=== PATIENT | female | born 1965 | race Caucasian/White ===

== ENCOUNTER 2020-07-15 12:26 | Day surgery (SDC) | payer MEDICARE, SELFPAY ==
[2020-07-09 08:35] VITALS: BMI 22.4
[2020-07-15 13:19] VITALS: BP 116/56; PULSE 94; RESP 16; TEMP 36.6; O2SAT 95
[2020-07-15] MEDS: Lactated Ringers 1,000 ML 20 ML IVCONT (13:50)
--- NOTE | 2020-07-15 13:50 | HO.ANESPROP2 ---
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 If so, by whom?: No Advance Directives Information Provided: No Recently lost weight without trying: No Meds Allergies Allergy/AdvReac Type Severity Reaction Status Date / Time olsalazine [From Dipentum] Allergy Rash Verified 07/15/20 13:02 Sulfa (Sulfonamide Allergy Rash Verified 07/09/20 08:45 Antibiotics) voriconazole Allergy seizure-like Verified 07/09/20 08:45 reaction aspirin AdvReac Gastrointestinal Verified 07/09/20 08:45 Upset ibuprofen AdvReac Gastrointestinal Verified 07/09/20 08:45 Upset Home Medications Medication Instructions Recorded Confirmed Last Taken Type diazepam 4 mg PO BID 07/09/20 07/09/20 Unknown History folic acid 1 mg PO DAILY 07/09/20 07/09/20 Unknown History levothyroxine 25 mcg PO DAILY 07/09/20 07/09/20 07/15/20 History mesalamine 800 mg PO TID 07/09/20 07/09/20 Unknown History multivitamin 1 tab PO DAILY 07/09/20 07/09/20 Unknown History pantoprazole 40 mg PO BID 07/09/20 07/09/20 07/15/20 History prazosin 2 mg PO BEDTIME 07/09/20 07/09/20 Unknown History sertraline 150 mg PO DAILY 07/09/20 07/09/20 Unknown History sucralfate 1 g PO BID 07/09/20 07/09/20 Unknown History Exam Exam Date and Time: July 15, 2020 1350 Height,Weight and Vital Signs: Height 5 ft 1 in Weight 53.977 kg Last Vital Signs Temp 97.9 F 07/15/20 13:19 Pulse 94 07/15/20 13:19 Resp 16 07/15/20 13:19 BP 116/56 L 07/15/20 13:19 Pulse Ox 95 07/15/20 13:19 Airway Mallampati Class: II TM Dist: >3cm Neck ROM: Limited Assessment and Plan Assessment Anesthesia Assessment: Anesthesia Plan Discussed Final Anesthetic Review NPO: Yes ASA Class: III Final Preanesthetic Review: No Changes in Pt Med Stat, Meds/Allgs Chart Reviewed, Anes Risks/Benef Reviewed and DNR Form (If Appl.) Patient Risk: Low Procedure Risk: Low Assessment/Block/Sedation in SS: Assess/Block/Sedation-SS Anesthetic Plan Anesthetic Plan: MAC: Disposition: Standard PACU
--- NOTE | 2020-07-15 14:04 | MHC.SHP ---
Pre-Procedural Eval Section A The patient is an INPATIENT: No Changes since office visit: No Cold of Flu in the past 2 weeks, No New Medical Problems, No Changes in Medication and No Patient answered all questions The History & Physical has been completed within 30 days and I have reviewed it.: Yes Section B Chief Complaint: crohns Allergies: Allergies Allergy/AdvReac Type Severity Reaction Status Date / Time olsalazine [From Dipentum] Allergy Rash Verified 07/15/20 13:02 Sulfa (Sulfonamide Allergy Rash Verified 07/09/20 08:45 Antibiotics) voriconazole Allergy seizure-like Verified 07/09/20 08:45 reaction aspirin AdvReac Gastrointestinal Verified 07/09/20 08:45 Upset ibuprofen AdvReac Gastrointestinal Verified 07/09/20 08:45 Upset Plan I have reviewed the history and physical and performed a pertinent physical examination on my patient. No changes have occurred unless specified.
--- NOTE | 2020-07-15 14:38 | PM.OP ---
Brief Operative Note Date of Service: 07/15/20 Pre-op diagnosis: ulcerative colitis Procedure: colonoscopy Surgeon: Panda Joseph Anesthesia: MAC Estimated blood loss (mL): 5 Pathology: other (bxs ti and colon) Condition: stable Disposition: PACU
[2020-07-15 14:41] VITALS: BP 90/51; PULSE 70; RESP 16; TEMP 36.7; O2SAT 99
[2020-07-15 14:57] VITALS: BP 102/41; PULSE 72; RESP 16; TEMP 36.7; O2SAT 98
--- NOTE | 2020-07-15 15:05 | OP_ITS ---
SURGEON: Panda Joseph MD INDICATIONS: Ulcerative colitis. PREOPERATIVE DIAGNOSIS: POSTOPERATIVE DIAGNOSIS: PROCEDURE PERFORMED: Colonoscopy to the terminal ileum. ESTIMATED BLOOD LOSS: COMPLICATIONS: ANESTHESIA: Monitored anesthesia care. ASSISTANTS: SPECIMENS: DESCRIPTION OF PROCEDURE: History and physical performed. The risks and benefits of the procedure were explained to the patient and informed consent was obtained. The patient was placed in the left lateral decubitus position. A digital rectal exam was performed and it was found to be normal. The Olympus pediatric video colonoscope was introduced into the rectum and advanced to the cecum without difficulty. The cecum was identified by transillumination, palpation, and identification of the ileocecal valve. Examination was performed. The scope was removed. She tolerated the procedure well and was transferred to the recovery area in stable condition. FINDINGS: The terminal ileum was normal. The visualized colonic mucosa was normal. There was some liquid stool coating the mucosa, mainly in the cecum and left colon. This was washed and suctioned. No polyps were identified. There was no active colitis identified. Biopsies were obtained from the terminal ileum and in all segments of the right colon approximately every 10 cm. No other lesions were identified. Retroflexed examination showed internal hemorrhoids. IMPRESSION: Ulcerative colitis. RECOMMENDATIONS: Follow up the biopsy results. MD VINI Alamo/ALEXANDERL / [id number]
== END 2020-07-15 15:18 | disposition home or self-care (01) ==
PROVIDERS: PCP Internal Medicine; Visit Provider Internal Medicine Gastroenterology
PROC: 0DJD8ZZ Inspection of Lower Intestinal Tract, Via Natural or Artificial Opening Endoscopic (ICD-10-PCS; CPT 45378; principal; 2020-07-15 13:50)
DX: K51.00 Ulcerative (chronic) pancolitis without complications (principal); K22.70 Barrett's esophagus without dysplasia; K64.8 Other hemorrhoids; K21.9 Gastro-esophageal reflux disease without esophagitis; C95.91 Leukemia, unspecified, in remission; G80.9 Cerebral palsy, unspecified; F32.9 Major depressive disorder, single episode, unspecified; Z79.899 Other long term (current) drug therapy; Z88.2 Allergy status to sulfonamides; Z88.8 Allergy status to other drugs, medicaments and biological substances
CPT/HCPCS: 45380; 88305

== ENCOUNTER 2022-10-07 06:10 | Day surgery (SDC) | payer MEDICARE, MEDICAID, SELFPAY ==
[2022-10-07 05:58] VITALS: BMI 25.9
--- OUTSIDE RECORDS SUMMARY | 2022-10-07 06:12 | XMS_ITS | Continuity of Care Document ---
Author Name Unknown Organization [facility] Address [address] [place] [address]- Care Team Providers Care Sales Service Coordinator Name Role Phone Patsy GERARDO, Rowan Leone Primary Care Physician Encounter [facility] Date(s): 08/16/21 - 09/15/21 [facility] [address] [place] [address]- Attending Physician: Yoly Siddiqi Admitting Physician: Yoly Siddiqi Referring Physician: AdmtrYoly Allergies, Adverse Reactions, Alerts Substance Reaction Severity Status aspirin Active sulfa drugs Rash Active Dipentum Active Bactrim Active nonsteroidal anti-inflammatory agents Active voriconazole Active Abilify Active Soy Products Active NSAIDs Active atorvastatin abd pain Active Latex Unknown Active Lactose Active Immunizations Given and Recorded Vaccine Date Status Refusal Reason influenza virus vaccine, inactivated 02/24/21 Give n influenza virus vaccine, inactivated 1 12/12/19 Re corded influenza virus vaccine, inactivated 02/19/18 Give n influenza virus vaccine, inactivated 2 01/03/17 Re corded influenza virus vaccine, inactivated 3 01/07/16 Re corded influenza virus vaccine, inactivated 12/02/14 Ji rded influenza virus vaccine, inactivated 12/16/13 Ji rded SARS-CoV-2 (COVID-19) mRNA-1273 vaccine 09/22/20 R ecorded SARS-CoV-2 (COVID-19) mRNA-1273 vaccine 06/12/20 R ecorded pneumococcal 23-valent vaccine 10/06/18 Given tetanus-diphtheria toxoids (Td) 03/26/83 Recorded Not Given Vaccine Date Status Refusal Reason pneumococcal 23-valent vaccine 04/15/14 Not Given Patient Refuses 1Result Comment: GIVEN AT [facility] 2Result Comment: [01/04/2017] [facility] 3Result Comment: [01/08/2016] [facility] Medications Acetaminophen = 650 mg, Every 6 hours, PRN Pain , Mild, two tablets (325mg) every 6 hours as needed, 0 Refills, Maintenance, 01/29/15 15:51:52 EST Start Date: 01/29/15 Status: Ordered acetaminophen/butalbital/caffeine 325 mg-50 mg-40 mg oral tablet See Instructions, PRN Headache, As needed for severe headache. no increases. use sparingly not to exceed 4000 mg acetaminophen per day, # 5 tablet, 0 Refills, Maintenance, 07/28/21 10:04:00 EDT, [facility] # [facility], As needed for severe headache. no... Start Date: 07/28/21 Status: Ordered azelastine 137 mcg/inh (0.1%) nasal spray 2 sprays, Nares, Both, Daily, PRN Other Allergies, in each nostril, # 30 mL, 5 Refills, Maintenance, 04/08/21 17:11:00 EST, [place], [facility] # 20, Partial fill upon patient request if the prescription is for a schedule II opioid drug., 2 sprays... Start Date: 04/08/21 Status: Ordered Centrum Silver Ultra Women's 1 tablet, By Mouth, Daily, 0 Refills, Maintenance, 04/15/14 16:52:38 Start Date: 04/15/14 Status: Ordered cranberry oral capsule 1 capsule, By Mouth, Daily, 0 Refills, Maintenance, 10/05/18 15:17:53 EDT Start Date: 10/05/18 Status: Ordered Delzicol 400 mg oral delayed release capsule 2 capsule = 800 mg, By Mouth, 3 times a day, # 180 capsule, 11 Refills, Maintenance, 04/29/19 17:44:00 EST, [id number], 155, cm, 04/11/19 11:34:00 EST, Height, 56.8, kg, 04/11/19 11:34:00 EST, Dry Weight Start Date: 04/29/19 Status: Ordered Folic Acid = 800 mcg, Daily, 0 Refills, Maintenance, 02/13/14 19:02:48 Start Date: 02/13/14 Status: Ordered pantoprazole 40 mg oral delayed release tablet 1 tablet = 40 mg, By Mouth, 2 times a day, # 60 tablet, 5 Refills, Maintenance, 12/09/19 13:25:00 EDT, CR Tablet, 155, cm, 11/28/19 14:53:00 EDT, Height, 56.9, kg, 05/07/19 13:47:00 EST, Dry Weight Start Date: 12/09/19 Status: Ordered Praluent Pen 75 mg/mL subcutaneous solution See Instructions, 75 mg Subcutaneous Infusion once every 2 weeks rotate injection sites, # 2 each, 3 Refills, Maintenance, 03/23/20 15:54:00 EST, [id number], 155, cm, 03/17/20 13:55:00 EST, Height, 56.9, kg, 05/07/19 13:47:00 EST, Start Date: 03/23/20 Status: Ordered Viactiv Soft Calcium Chews Calcium with Vitamin D and K oral tablet, chewable By Mouth, Daily in AM, 0 Refills, Maintenance, 10/05/18 15:20:12 EDT Start Date: 10/05/18 Status: Ordered Problem List Condition Effective Dates Status Health Status Inform ant Acute promyelocytic leukemia , TRICE M3, in remission(Confirmed) Active Adverse reaction to vaccine(Confirmed) Active Anemia(Confirmed) Active Anxiety disorder(Confirmed) Active Arthritis(Confirmed) Active Vaginal atrophy(Confirmed) Active Barreto's esophagus(Confirmed) Active Cerebral palsy(Confirmed) Active Depression(Confirmed) Active Dysuria(Confirmed) Active Esophageal reflux(Confirmed) Active DORINDA (generalized anxiety disorder)(Confirmed) Active Cephalgia(Confirmed) Active Hip pain(Confirmed) Active Hyperlipidemia(Confirmed) Active Hypothyroidism(Confirmed) Active Iron deficiency anemia(Confirmed) Active Migraines(Confirmed) Active Mild intellectual disabilities(Confirmed) Active Right leg weakness(Confirmed) Active Arthralgia of multiple sites(Confirmed) Active Dyspareunia, female(Confirmed) Active MDD (major depressive disord er), recurrent, in full remission(Confirmed) Active Major depressive disorder, r ecurrent episode, mild(Confirmed) Active Depression, major, recurrent , moderate(Confirmed) Active Segmental and somatic dysfun ction of cervical region(Confirmed) Active Back spasm(Confirmed) Active Syncope(Confirmed) Active Tardive dyskinesia(Confirmed) Active Ulcerative colitis(Confirmed) Active Social History Social History Type Response Smoking Status Never smoker entered on: 04/16/14 Sex
--- OUTSIDE RECORDS SUMMARY | 2022-10-07 06:12 | XMS_ITS | Continuity of Care Document ---
Author Name Unknown Organization [facility] Address [address] [place] [address]- Care Team Providers Care Health Care / Medical Job Titles Name Role Phone Patsy GERARDO, Rowan Leone Primary Care Physician Encounter [facility] Date(s): 06/22/22 - 07/22/22 [facility] [address] [place] [address]- Allergies, Adverse Reactions, Alerts Substance Reaction Severity Status aspirin Active sulfa drugs Rash Active Dipentum Active Bactrim Active nonsteroidal anti-inflammatory agents Active Latex Unknown Active voriconazole Active Abilify Active Lactose Active NSAIDs Active atorvastatin abd pain Active Soy Products Active Immunizations Given and Recorded Vaccine Date Status Refusal Reason influenza virus vaccine, inactivated 02/04/22 Give n influenza virus vaccine, inactivated 02/24/21 Give n [...] Given Patient Refuses 1Result Comment: GIVEN AT [facility] 2Result Comment: [01/04/2017] [facility] 3Result Comment: [01/08/2016] [facility] Medications Acetaminophen = 650 mg, Every 6 hours, PRN Pain , Mild, two tablets (325mg) every 6 hours as needed, 0 Refills, Maintenance, 01/29/15 15:51:52 EST Start Date: 01/29/15 Status: Ordered Albuterol (Eqv-ProAir HFA) 90 mcg/inh inhalation aerosol 2 puffs, Inhalation, Every 4 hours, # 1 each, 3 Refills, Maintenance, 06/22/22 12:34:00 EDT, [facility] # [facility], Partial fill upon patient request if the prescription is for a schedule II opioid drug., 2 puffs Inhalation Every 4 hours, 158, cm, 06/22... Start Date: 06/22/22 Status: Ordered albuterol CFC free 90 mcg/inh inhalation aerosol 2, puffs, Inhalation, 4 times a day, PRN, # 1 each, Refills 0, Tot. Refills 0, Acute 08/20/22 15:15:00 EDT, 07/14/22 15:15:00 EDT, Aerosol, Route to Pharmacy Electronically, [id number], [facility] # [facility], 158, cm, 07/14/22... Start Date: 07/14/22 Stop Date: 08/20/22 Status: Ordered albuterol CFC free 90 mcg/inh inhalation aerosol 1, puffs, Inhalation, Every 8 hours, PRN, # 1 each, Refills 0, Tot. Refills 0, Soft Stop, 10/04/17 12:37:39 EDT, Aerosol, Route to Pharmacy Electronically, NCP[facility]_[id number], [facility] [address], Compound Start Date: 10/04/17 Status: Ordered azelastine 137 mcg/inh (0.1%) nasal spray 2 sprays, Nares, Both, Daily, PRN Other Allergies, in each nostril, # 30 mL, 5 Refills, Maintenance, 04/08/21 17:11:00 EST, [place], [facility] # 20, Partial fill upon patient request if the prescription is for a schedule II opioid drug., 2 sprays... Start Date: 04/08/21 Status: Ordered Centrum Silver Ultra Women's 1 tablet, By Mouth, Daily, 0 Refills, Maintenance, 04/15/14 16:52:38 Start Date: 04/15/14 Status: Ordered cetirizine 10 mg oral tablet 1 tablet = 10 mg, By Mouth, Daily, # 30 tablet, 2 Refills, Maintenance, 06/06/22 13:18:00 EDT, Tablet, [facility] # [facility], Partial fill upon patient request if the prescription is for a schedule II opioid drug., 159, cm, 06/06/22 13:01:00 EDT, Height... Start Date: 06/06/22 Status: Ordered cranberry oral capsule 1 capsule, By Mouth, Daily, 0 Refills, Maintenance, 10/05/18 15:17:53 EDT Start Date: 10/05/18 Status: Ordered Delzicol 400 mg oral delayed release capsule 2 capsule = 800 mg, By Mouth, 3 times a day, # 180 capsule, 11 Refills, Maintenance, 04/29/19 17:44:00 EST, [facility] #[id number], 155, cm, 04/11/19 11:34:00 EST, Height, 56.8, kg, 04/11/19 11:34:00 EST, Dry Weight Start Date: 04/29/19 Status: Ordered diazepam 2 mg oral tablet 4 mg, 2, tablet, By Mouth, 2 times a day, masspat checked, # 120 tablet, Refills 4, Tot. Refills 4,Maintenance, 05/04/22 14:36:00 EST, Route to Pharmacy Electronically, [facility] # [facility], 159, cm,02/04/22 14:02:00 EST, Height, 59.2, kg, 10/26/21 1... Start Date: 05/04/22 Stop Date: 10/01/22 Status: Ordered Euthyrox 25 mcg (0.025 mg) oral tablet See Instructions, TAKE 1 TABLET BY MOUTH DAILY ALTERNATING WITH 1.5 TABLETS EVERY OTHER DAY, # 45 tablet, 5 Refills, Maintenance, 02/04/22 13:36:00 EST, [facility] # [facility], 159, cm, 10/26/21 15:18:00 EDT, Height, 59.2, kg, 10/26/21 15:18:00 EDT, Dry... Start Date: 02/04/22 Status: Ordered fluticasone 50 mcg/inh nasal spray 1 sprays = 50 mcg, Nares, Both, Daily, PRN Nasal Congestion, as needed, # 16 Gm, 3 Refills, Maintenance, 06/06/22 13:18:00 EDT, Nasal [place], [facility] # [facility], 1 sprays Nares, Both Daily,PRN:Nasal Congestion,Instr:as needed, 159, cm, 06/06/22 13:01:... Start Date: 06/06/22 Status: Ordered Folic Acid = 800 mcg, Daily, 0 Refills, Maintenance, 02/13/14 19:02:48 Start Date: 02/13/14 Status: Ordered pantoprazole 40 mg oral delayed release tablet 1 tablet = 40 mg, By Mouth, Daily, at bedtime, # 60 tablet, 5 Refills, Maintenance, 12/09/19 13:25:00 EDT, CR Tablet, 155, cm, 11/28/19 14:53:00 EDT, Height, 56.9, kg, 05/07/19 13:47:00 EST, Dry Weight Start Date: 12/09/19 Status: Ordered pantoprazole 40 mg oral delayed release tablet 1 tablet = 40 mg, By Mouth, Daily, # 30 tablet, 6 Refills, Maintenance, 01/13/17 16:18:00, EC Tablet Start Date: 01/13/17 Status: Ordered Praluent Pen 75 mg/mL subcutaneous solution See Instructions, 75 mg Subcutaneous Infusion once every 2 weeks rotate injection sites, # 2 each, 2 Refills, Maintenance, 02/04/22 16:26:00 EST, [facility], 159, cm, 02/04/22 14:02:00 EST, Height, 59.2, kg, 10/26/21 15:18:00 EDT, Dry Weight Start Date: 02/04/22 Status: Ordered sertraline 100 mg oral tablet 1.5 tablet = 150 mg, By Mouth, Daily, # 45 tablet, 4 Refills, Maintenance, 05/04/22 14:38:00 EST, Tablet, [facility], 159, cm, 02/04/22 14:02:00 EST, Height, 59.2, kg, 10/26/21 15:18:00 EDT,Dry Weight Start Date: 05/04/22 Stop Date: 10/01/22 Status: Ordered sucralfate 1 gm oral tablet 1, tablet, By Mouth, 3 times a day before meals, ON AN ON AN EMPTY STOMACH., # 90 tablet, Refills 2, Tot. Refills 2, Maintenance, 07/11/22 20:08:00 EDT, Route to Pharmacy Electronically, [facility] #[id number], 158, cm, 06/22/22 10:29:00 EDT, [place]i... Start Date: 07/11/22 Status: Ordered SUMAtriptan 50 mg oral tablet See Instructions, take a half at onset of headache, may repeat other half 2 hours later once, 0 Refills, Maintenance, 02/04/22 15:02:00 EST, Partial fill upon patient request if the prescription is for a schedule II opioid drug. Start Date: 02/04/22 Status: Ordered Viactiv Soft Calcium Chews Calcium with Vitamin D and K oral tablet, chewable By Mouth, Daily in AM, 0 Refills, Maintenance, 10/05/18 15:20:12 EDT Start Date: 10/05/18 Status: Ordered Yuvafem 10 mcg vaginal tablet See Instructions, 1 tablet Vaginally twice weekly at bedtime., # 30 tablet, 4 Refills, Maintenance,10/26/21 15:45:00 EDT, [facility] # [facility], Partial fill upon patient request if the prescription is for a schedule II opioid drug., 159, cm, 10/26/21... Start Date: 10/26/21 Status: Ordered Problem List Condition Confirmation Course Effective Dates Status H ealt Status Informant Acute promyelocytic leukemia, TRICE M3, in remission Confirmed Active Adverse reaction to vaccine Confirmed Active Anemia Confirmed Active Anxiety disorder Confirmed Active Arthritis Confirmed Active Vaginal atrophy Confirmed Active Barreto's esophagus Confirmed Active Cerebral palsy Confirmed Active Left elbow contusion Confirmed Active Dysuria Confirmed Active Fall in home Confirmed Active Esophageal reflux Confirmed Active DORINDA (generalized anxiety disorder) Confirmed Active Cephalgia Confirmed Active Hip pain Confirmed Active Hyperlipidemia Confirmed Active Hypothyroidism Confirmed Active Left wrist fracture Confirmed Active Iron deficiency anemia Confirmed Active Migraines Confirmed Active Mild intellectual disabilities Confirmed Active Right leg weakness Confirmed Active Arthralgia of multiple sites Confirmed Active Dyspareunia, female Confirmed Active MDD (major depressive disorder), recurrent, in full remission Confirmed Active Major depressive disorder, recurrent episode, mild Confirmed Active Depression, major, recurrent, moderate Confirmed Active Segmental and somatic dysfunction of cervical region Confirmed Active Back spasm Confirmed Active Fatty liver Confirmed Active Syncope Confirmed Active Tardive dyskinesia Confirmed Active Ulcerative colitis Confirmed Active Social History Social History Type Response Smoking Status Never smoker entered on: 04/16/14 Sex Patient Care team information Care Team Personnel Name: Nacny Amaya Position: [facility] RN Member Role: Primary Care Nurse Name: Brigid Abbasi Position: [facility] RN Member Role: Primary Care Nurse Name: Rowan Garner MD Position: [facility] Primary Care Physician Member Role: PCP Address: Address: [address] [place] [id number] Name: Liz Ley RN Position: [facility] RN Member Role: Primary Care Nurse Care Team Related Persons Name: Romel ALONZO Address: [address] [place], [place] Name: WENDY CHEN Address: home [address] [place], [place] Name: YAMEL CHEN Address: home [address] [place], [place] Name: PEPE LINARES Address: [address] [place], [place]
--- OUTSIDE RECORDS SUMMARY | 2022-10-07 06:12 | XMS_ITS | Continuity of Care Document ---
Author Name Unknown Organization [facility] Address [address] [place] [address]- Care Team Providers Care Rubber Mold Maker Name Role Phone Patsy GERARDO, Rowan Leone Primary Care Physician Encounter [facility] NBR [id number] Date(s): 12/04/20 - 01/03/21 [facility] [address] [place] [address]- Allergies, Adverse Reactions, Alerts Substance Reaction Severity Status aspirin Active atorvastatin abd pain Active sulfa drugs Rash Active Dipentum Active Bactrim Active nonsteroidal anti-inflammatory agents Active Latex Unknown Active voriconazole Active Abilify Active Soy Products Active Lactose Active NSAIDs Active Immunizations Given and Recorded Vaccine Date Status Refusal Reason influenza virus vaccine, inactivated 1 12/12/19 Re corded influenza virus vaccine, inactivated 02/19/18 Give n influenza virus vaccine, inactivated 2 01/03/17 Re corded influenza virus vaccine, inactivated 3 01/07/16 Re corded influenza virus vaccine, inactivated 12/16/13 Ji rded pneumococcal 23-valent vaccine 10/06/18 Given tetanus-diphtheria toxoids (Td) 03/26/83 Recorded Not Given Vaccine Date Status Refusal Reason pneumococcal 23-valent vaccine 04/15/14 Not Given Patient Refuses 1Result Comment: GIVEN AT [facility] 2Result Comment: [01/04/2017] [facility] 3Result Comment: [01/08/2016] [facility] Medications Acetaminophen = 650 mg, Every 6 hours, PRN Pain , Mild, two tablets (325mg) every 6 hours as needed, 0 Refills, Maintenance, 01/29/15 15:51:52 EST Start Date: 01/29/15 Status: Ordered acetaminophen/butalbital/caffeine 325 mg-50 mg-40 mg oral tablet 1 tablet, By Mouth, Daily, PRN Headache, no increases. use sparingly not to exceed 4000 mg acetaminophen per day, # 10 tablet, 5 Refills, Maintenance, 07/21/20 20:30:00 EDT, [facility] # 20, 1 tablet By Mouth Daily,x30 days,PRN:Headache,Instr:no... Start Date: 07/21/20 Stop Date: 01/17/21 Status: Ordered Centrum Silver Ultra Women's 1 [...] capsule, 11 Refills, Maintenance, 04/29/19 17:44:00 EST, [facility] #[id number], 155, cm, 04/11/19 11:34:00 EST, Height, 56.8, kg, 04/11/19 11:34:00 EST, Dry Weight Start Date: 04/29/19 Status: Ordered diazepam 2 mg oral tablet 4 mg, 2, tablet, By Mouth, 2 times a day, # 120 tablet, Refills 0, Tot. Refills 0, Maintenance, 12/29/20 10:52:00 EDT, Route to Pharmacy Electronically, [facility] # [facility], 155, cm, 11/20/20 9:27:00EDT, Height, 54.5, kg, 06/12/20 17:32:00 EDT, Dry W... Start Date: 12/29/20 Stop Date: 01/28/21 Status: Ordered Folic Acid = 800 mcg, [...] each, 3 Refills, Maintenance, 03/23/20 15:54:00 EST, [facility] #[id number], 155, cm, 03/17/20 13:55:00 EST, Height, 56.9, kg, 05/07/19 13:47:00 EST, . Start Date: 03/23/20 Status: Ordered Viactiv Soft Calcium Chews Calcium with Vitamin D and K oral tablet, chewable By Mouth, Daily in AM, 0 Refills, Maintenance, 10/05/18 15:20:12 EDT Start Date: 10/05/18 Status: Ordered ZyrTEC 10 mg oral tablet 1 tablet = 10 mg, By Mouth, Daily, # 30 tablet, 0 Refills, Maintenance, 01/20/15 17:56:53, Tablet Start Date: 01/20/15 Status: Ordered Problem List Condition Effective Dates Status Health Status Inform ant Acute promyelocytic leukemia , TRICE M3, in remission(Confirmed) Active Adverse reaction to vaccine(Confirmed) Active Anemia(Confirmed) Active Anxiety disorder(Confirmed) Active Arthritis(Confirmed) Active Barreto's esophagus(Confirmed) Active Cerebral palsy(Confirmed) Active Depression(Confirmed) Active Dysuria(Confirmed) Active Esophageal reflux(Confirmed) Active DORINDA (generalized anxiety disorder)(Confirmed) Active Cephalgia(Confirmed) Active Hyperlipidemia(Confirmed) Active Hypothyroidism(Confirmed) Active IBD (inflammatory bowel disease)(Confirmed) Active Iron deficiency anemia(Confirmed) Active Migraines(Confirmed) Active Mild intellectual disabilities(Confirmed) Active Right leg weakness(Confirmed) Active Arthralgia of multiple sites(Confirmed) Active Dyspareunia, female(Confirmed) Active Major depressive disorder, r ecurrent episode, mild(Confirmed) Active Depression, major, recurrent , moderate(Confirmed) Active Segmental and somatic dysfun ction of cervical region(Confirmed) Active Sore throat(Confirmed) Active Syncope(Confirmed) Active Tardive dyskinesia(Confirmed) Active Ulcerative colitis(Confirmed) Active Social History Social History Type Response Smoking Status Never smoker entered on: 04/16/14 Sex
--- OUTSIDE RECORDS SUMMARY | 2022-10-07 06:12 | XMS_ITS | Continuity of Care Document ---
Author Name Unknown Organization [facility] Address [address] [place] [address]- Care Team Providers Care Clinical Support Manager Name Role Phone Patsy GERARDO, Rowan Leone Primary Care Physician [phone] [id number] Date(s): 09/03/21 - 09/03/[address] [address]- Discharge Disposition: A-D/C Home Attending Physician: Brandi Saunders MD Admitting Physician: Brandi Saunders MD Referring Physician: Not on Staff, Referring MD Allergies, Adverse Reactions, Alerts Substance Reaction Severity Status aspirin Active sulfa drugs Rash Active Dipentum Active Bactrim Active nonsteroidal anti-inflammatory agents Active voriconazole Active Abilify Active NSAIDs Active atorvastatin abd pain Active Latex Unknown Active Soy Products Active Lactose Active Immunizations Given and Recorded [...] Given Patient Refuses 1Result Comment: GIVEN AT [facility] 2Result Comment: [01/04/2017] [facility] 3Result [...] tablet, 0 Refills, Maintenance, 07/28/21 10:04:00 EDT, [facility] # 20, As needed for severe headache. no... Start Date: 07/28/21 Status: Ordered azelastine 137 mcg/inh (0.1%) nasal spray 2 sprays, Nares, Both, Daily, PRN Other Allergies, in each nostril, # 30 mL, 5 Refills, Maintenance, 04/08/21 17:11:00 EST, [place], [facility] # 20, Partial fill upon patient [...] capsule, 11 Refills, Maintenance, 04/29/19 17:44:00 EST[id number], 155, cm, 04/11/19 11:34:00 EST, Height, 56.8, kg, 04/11/19 11:34:00 EST, Dry Weight Start Date: 04/29/19 Status: Ordered Folic Acid = 800 mcg, Daily, 0 Refills, Maintenance, 02/13/14 19:02:48 Start Date: 02/13/14 Status: Ordered oxyCODONE 5 mg oral tablet 5 mg, Tablet, By Mouth, Once, PRN for Other, Pain, KELLY, 09/03/21 1:25:00 EDT Start Date: 09/03/21 Stop Date: 09/03/21 Status: Completed oxyCODONE 5 mg oral tablet 5 mg, 1, tablet, By Mouth, Every 6 hours, PRN, Causes drowsiness. Do not drive or drink alcohol while taking., # 15 tablet, Refills 0, Tot. Refills 0, Acute 09/08/21 3:00:00 EDT, as needed for pain, 09/03/21 3:27:00 EDT, Route to Pharmacy Electronical... Start Date: 09/03/21 Stop Date: 09/08/21 Status: Ordered pantoprazole 40 mg oral delayed [...] each, 3 Refills, Maintenance, 03/23/20 15:54:00 EST, [facility] #[id number], 155, cm, 03/17/20 13:55:00 EST, Height, 56.9, kg, 05/07/19 13:47:00 EST, [facility] Start Date: 03/23/20 Status: Ordered Viactiv Soft [...] Active Tardive dyskinesia(Confirmed) Active Ulcerative colitis(Confirmed) Active Results Radiology Reports * Exam Date Time Procedure Performing Provider Status 09/03/21 2:14 AM Forearm 2 Views Left Rigoberto Alvarenga R; Auth (Verified) Notes: (Forearm 2 Views Left) Reason For Exam: Fall, pain, reduced ROM;Trauma RESULT: Forearm 2 Views Left Elbow Min 3 Views Left, Wrist Comp Min 3 Views Left, Forearm 2 Views Left Hx of Present Illness: Pt has hx of CP and tardive dyskinesia. Fell, landed on left arm. Reports left elbow and left hand pain. Reports being unable to move left arm at all.; Reason: Trauma; Fall, pain, reduced ROM; Clinical Question(s): Fracture COMPARISON: None. FINDINGS: There is an elbow joint effusion. There is questionable linear lucency extending to the articular surface of the radial head, suspicious for nondisplaced fracture. Chronic fracture of the ulnar styloid with corticated margins. No evidence of acute fracture withinthe left wrist or distal forearm. No arthritic change. No focal soft tissue swelling. IMPRESSION: Elbow joint effusion with findings suspicious for a nondisplaced radial head fracture. WSN: [id number] Ordering Physician: Brandi Saunders Dictated By: Eugenia Upton MD Dictated Date/Time: 09/03/21 7:42 am Reviewed By: Eugenia Upton MD Signed By: Eugenia Upton MD Signed Date/Time: 09/03/21 7:42 am Transcribed By: CSB Transcribed Date/Time: 09/03/21 7:38 am * Exam Date Time Procedure Performing Provider Status 09/03/21 2:14 AM Wrist Comp Min 3 Views Left Lyssa Love i; Auth (Verified) Notes: (Wrist Comp Min 3 Views Left) Reason For Exam: Fall, pain, reduced ROM;Trauma RESULT: Wrist Comp Min 3 Views Left Elbow Min 3 Views Left, Wrist Comp Min 3 Views Left, Forearm 2 Views Left Hx of Present Illness: Pt has hx of CP and tardive dyskinesia. Fell, landed on left arm. Reports left elbow and left hand pain. Reports being unable to move left arm at all.; Reason: Trauma; Fall, pain, reduced ROM; Clinical Question(s): Fracture COMPARISON: None. FINDINGS: There is an elbow joint effusion. There is questionable linear lucency extending to the articular surface of the radial head, suspicious for nondisplaced fracture. Chronic fracture of the ulnar styloid with corticated margins. No evidence of acute fracture withinthe left wrist or distal forearm. No arthritic change. No focal soft tissue swelling. IMPRESSION: Elbow joint effusion with findings suspicious for a nondisplaced radial head fracture. WSN: [id number] Ordering Physician: Brandi Saunders Dictated By: Eugenia Upton MD Dictated Date/Time: 09/03/21 7:42 am Reviewed By: Eugenia Upton MD Signed By: Eugenia Upton MD Signed Date/Time: 09/03/21 7:42 am Transcribed By: FORD Transcribed Date/Time: 09/03/21 7:38 am * Exam Date Time Procedure Performing Provider Status 09/03/21 2:14 AM Elbow Min 3 Views Left Romel Alvarenga R; Auth (Verified) Notes: (Elbow Min 3 Views Left) Reason For Exam: Fall, pain, reduced ROM;Trauma RESULT: Elbow Min 3 Views Left Elbow Min 3 Views Left, Wrist Comp Min 3 Views Left, Forearm 2 Views Left Hx of Present Illness: Pt has hx of CP and tardive dyskinesia. Fell, landed on left arm. Reports left elbow and left hand pain. Reports being unable to move left arm at all.; Reason: Trauma; Fall, pain, reduced ROM; Clinical Question(s): Fracture COMPARISON: None. FINDINGS: There is an elbow joint effusion. There is questionable linear lucency extending to the articular surface of the radial head, suspicious for nondisplaced fracture. Chronic fracture of the ulnar styloid with corticated margins. No evidence of acute fracture withinthe left wrist or distal forearm. No arthritic change. No focal soft tissue swelling. IMPRESSION: Elbow joint effusion with findings suspicious for a nondisplaced radial head fracture. WSN: [id number] Ordering Physician: Brandi Saunders Dictated By: Eugenia Upton MD Dictated Date/Time: 09/03/21 7:42 am Reviewed By: Eugenia Upton MD Signed By: Eugenia Upton MD Signed Date/Time: 09/03/21 7:42 am Transcribed By: FORD Transcribed Date/Time: 09/03/21 7:38 am Vital Signs Most recent to oldest [Reference Range]: 1 2 3 Height 159 cm (09/03/21 4:03 AM) 159 cm (09/03/21 1:04 AM) 159 cm (09/03/21 1:03 AM) Weight 57.7 kg (09/03/21 1:04 AM) 57.7 kg (09/03/21 1:03 AM) Oxygen Saturation [94-100 %] 98 % (09/03/21 4:03 AM) 99 % (09/03/21 1:03 AM) Pulse Rate [55-90 bpm] 77 bpm (09/03/21 4:03 AM) 84 bpm (09/03/21 1:03 AM) Body Mass Index [18.5-24.99] 22.82 (09/03/21 1:03 AM) Blood Pressure [90-138/55-84 mm Hg] 102/73mm Hg (09/03/21 4:03 AM) 96/67mm Hg (09/03/21 1:03 AM) Respiratory Rate [16-30 br/min] 18 br/min (09/03/21 2:31 AM) 18 br/min (09/03/21 1:31 AM) 17 br/min (09/03/21 1:03 AM) Temperature [96.8-100.4 DegF] 98.0 DegF (09/03/21 4:03 AM) 97.8 DegF (09/03/21 1:03 AM) Mode of Delivery (Oxygen) Room air (09/03/21 4:03 AM) Room air (09/03/21 1:03 AM) Blood pressure sites Arm, right (09/03/21 4:03 AM) Arm, right (09/03/21 1:03 AM) Temperature Route Oral (09/03/21 4:03 AM) Oral (09/03/21 1:03 AM) Dry Weight 57.7 kg (09/03/21 1:04 AM) 57.7 kg (09/03/21 1:03 AM) Weight Obtained Via Standing scale (09/03/21 1:03 AM) Dry Weight Obtained Via Standing scale (09/03/21 1:03 AM) Social History Social History Type Response Smoking Status Never smoker entered on: 04/16/14 Sex
--- OUTSIDE RECORDS SUMMARY | 2022-10-07 06:12 | XMS_ITS | Continuity of Care Document ---
Author Name Unknown Organization [facility] Address [address] [place] [address]- Care Team Providers Care Magnet Placer Name Role Phone Rowan Garner MD Primary Care Physician Encounter [facility] Date(s): 03/31/20 - 04/30/[address] [address]- Attending Physician: Yoly Siddiqi Admitting Physician: AdmtrYoly Referring Physician: Admtr, Ar8 Allergies, Adverse Reactions, Alerts Substance Reaction Severity [...] Given Patient Refuses 1Result Comment: GIVEN AT [facility] 2Result Comment: [01/04/2017] [facility] 3Result [...] day, # 10 tablet, 5 Refills, Maintenance, 07/15/19 16:13:00 EDT, [facility] #[id number], 1 tablet By Mouth Daily,x30 days,PRN:Headache,I... Start Date: 07/15/19 Stop Date: 01/11/20 Status: Ordered Centrum Silver Ultra Women's 1 [...] capsule, 11 Refills, Maintenance, 04/29/19 17:44:00 EST, [facility] #[id number], 155, cm, 04/11/19 11:34:00 EST, Height, 56.8, [...] each, 3 Refills, Maintenance, 03/23/20 15:54:00 EST, [facility] #[id number], 155, cm, 03/17/20 13:55:00 EST, Height, 56.9, [...] leukemia , TRICE M3, in remission(Confirmed) Active Anemia(Confirmed) Active Anxiety disorder(Confirmed) Active Arthritis(Confirmed) Active Barreto's esophagus(Confirmed) Active Cerebral palsy(Confirmed) Active Depression(Confirmed) Active Esophageal reflux(Confirmed) Active DORINDA (generalized anxiety disorder)(Confirmed) Active Cephalgia(Confirmed) Active Hyperlipidemia(Confirmed) Active Hypothyroidism(Confirmed) Active IBD (inflammatory bowel disease)(Confirmed) Active Iron deficiency anemia(Confirmed) Active Migraines(Confirmed) Active Mild intellectual disabilities(Confirmed) Active Right leg weakness(Confirmed) Active Arthralgia of multiple sites(Confirmed) Active Major depressive disorder, r ecurrent episode, mild(Confirmed) Active Depression, major, recurrent , moderate(Confirmed) Active Segmental and somatic dysfun ction of cervical region(Confirmed) Active Syncope(Confirmed) Active Tardive dyskinesia(Confirmed) Active Ulcerative colitis(Confirmed) Active Social History Social History Type Response Smoking Status Never smoker entered on: 04/16/14 Sex
--- OUTSIDE RECORDS SUMMARY | 2022-10-07 06:12 | XMS_ITS | Continuity of Care Document ---
Author Name Unknown Organization [facility] Address [address], [address], [address] [place] [address]- Care Team Providers Care Television Tube Inspector Name Role Phone Patsy GERARDO, Rowan Leone Primary Care Physician [phone] Encounter [facility] Date(s): 03/22/19 - 08/14/19 [facility] [address], [address], [address] [place] [id number]- [facility] Attending Physician: Vicki Torres MD Admitting Physician: Vicki Torres MD Allergies, Adverse Reactions, Alerts Substance Reaction Severity Status aspirin Active atorvastatin abd pain Active sulfa drugs Rash Active Dipentum Active Bactrim Active nonsteroidal anti-inflammatory agents Active Latex Unknown Active voriconazole Active Abilify Active Soy Products Active Lactose Active NSAIDs Active Immunizations Given and Recorded Vaccine Date Status Refusal Reason pneumococcal 23-valent vaccine 10/06/18 Given influenza virus vaccine, inactivated 02/19/18 Give n influenza virus vaccine, inactivated 1 01/03/17 Re corded influenza virus vaccine, inactivated 2 01/07/16 Re corded influenza virus vaccine, inactivated 12/16/13 Ji rded tetanus-diphtheria toxoids (Td) 03/26/83 Recorded Not Given Vaccine Date Status Refusal Reason pneumococcal 23-valent vaccine 04/15/14 Not Given Patient Refuses 1Result Comment: [01/04/2017] [facility] 2Result Comment: [01/08/2016] [facility] Medications Acetaminophen = [...] tablet, 5 Refills, Maintenance, 07/15/19 16:13:00 EDT, [facility] #[id number], 1 tablet By Mouth Daily,x30 days,PRN:Headache,I... Start [...] capsule, 11 Refills, Maintenance, 04/29/19 17:44:00 EST, [facility] #[id number], 155, cm, 04/11/19 11:34:00 EST, Height, 56.8, kg, 04/11/19 11:34:00 EST, Dry Weight Start Date: 04/29/19 Status: Ordered diazepam 2 mg oral tablet See Instructions, Take 1 tab in AM, and 2 in PM., # 90 tablet, Refills 5, Tot. Refills 5, Maintenance, 07/15/19 16:16:00 EDT, Instructions Replace Required Details, Route to Pharmacy Electronically, [facility] #[id number], 155, cm, 05/07/19 13:47... Start Date: 07/15/19 Status: Ordered fluticasone 50 mcg/inh nasal spray 1 sprays, Nares, Both, Daily, PRN Nasal Congestion, # 16 Gm, 0 Refills, Maintenance, 10/22/14 17:35:07 EDT, [facility] Start Date: 10/22/14 Status: Ordered Folic Acid = 800 mcg, Daily, 0 Refills, Maintenance, 02/13/14 19:02:48 Start Date: 02/13/14 Status: Ordered levothyroxine 0.025 mg oral tablet See Instructions, TAKE 1 TABLET ALTERNATING WITH 1.5 TABLETS BY MOUTH EVERY OTHER DAY, # 45 tablet,5 Refills, Soft Stop, 05/21/19 10:56:00 EST, [facility] #[id number], 155, cm, 05/07/19 13:47:00 EST, Height, 56.9, kg, 05/07/19 13:47:00 EST, Dry... Start Date: 05/21/19 Status: Ordered Viactiv Soft Calcium Chews Calcium [...]
--- OUTSIDE RECORDS SUMMARY | 2022-10-07 06:12 | XMS_ITS | Continuity of Care Document ---
Author Name Unknown Organization [facility] [place] Address [address] [place] [address]- Care Team Providers Care Casework Supervisor Name Role Phone Patsy GERARDO, Rowan Leone Primary Care Physician Encounter [facility] Date(s): 12/13/19 - 01/12/20 [facility] [place] [address] [place] [address]- [facility] Allergies, Adverse Reactions, Alerts Substance Reaction Severity [...] Given Patient Refuses 1Result Comment: GIVEN AT [facility] 2Result Comment: [01/04/2017] [facility] 3Result [...] tablet, 5 Refills, Maintenance, 07/15/19 16:13:00 EDT, [facility] #[id number], 1 tablet By Mouth Daily,x30 days,PRN:Headache,I... Start [...] capsule, 11 Refills, Maintenance, 04/29/19 17:44:00 EST, [facility] #[id number], 155, cm, 04/11/19 11:34:00 EST, Height, 56.8, kg, 04/11/19 11:34:00 EST, Dry Weight Start Date: 04/29/19 Status: Ordered diazepam 2 mg oral tablet 4 mg, 2, tablet, By Mouth, 2 times a day, # 120 tablet, Refills 3, Tot. Refills 3, Maintenance, 12/24/19 9:27:00 EDT, Route to Pharmacy Electronically, [facility] #[id number], 155, cm, 11/28/19 14:53:00 EDT, Height, 56.9, kg, 05/07/19 13:47:00 ES... Start Date: 12/24/19 Status: Ordered Folic Acid = 800 mcg, Daily, 0 Refills, Maintenance, 02/13/14 19:02:48 Start Date: 02/13/14 Status: Ordered levothyroxine 0.025 mg oral tablet See Instructions, TAKE 1 TABLET ALTERNATING WITH 1.5 TABLETS BY MOUTH EVERY OTHER DAY, # 45 tablet,5 Refills, Soft Stop, 05/21/19 10:56:00 EST, [facility] #[id number], 155, cm, 05/07/19 13:47:00 EST, Height, 56.9, kg, 05/07/19 13:47:00 EST, Dry... Start Date: 05/21/19 Status: Ordered pantoprazole 40 mg oral delayed release tablet 1 tablet = 40 mg, By Mouth, 2 times a day, # 60 tablet, 5 Refills, Maintenance, 12/09/19 13:25:00 EDT, [facility], 155, cm, 11/28/19 14:53:00 EDT, Height, 56.9, kg, 05/07/19 13:47:00 EST, Dry Weight Start Date: 12/09/19 Status: Ordered Viactiv Soft Calcium Chews Calcium [...]
--- OUTSIDE RECORDS SUMMARY | 2022-10-07 06:12 | XMS_ITS | Continuity of Care Document ---
Author Name Unknown Organization [facility] Address [address] [place] [address]- Care Team Providers Care Chemical Etching Processor Name Role Phone Patsy GERARDO, Rowan Leone Primary Care Physician Encounter [facility] Date(s): 08/10/22 - 09/09/22 [facility] [address] [place] [address]- Allergies, Adverse Reactions, Alerts Substance Reaction Severity [...] Given Patient Refuses 1Result Comment: GIVEN AT [facility] 2Result Comment: [01/04/2017] [facility] 3Result Comment: [01/08/2016] [facility] Medications Acetaminophen = 650 mg, Every 6 hours, PRN Pain , Mild, two tablets (325mg) every 6 hours as needed, 0 Refills, Maintenance, 01/29/15 15:51:52 EST Start Date: 01/29/15 Status: Ordered azelastine 137 mcg/inh (0.1%) nasal spray 2 sprays, Nares, Both, Daily, PRN Other Allergies, in each nostril, # 30 mL, 5 Refills, Maintenance, 04/08/21 17:11:00 EST, [place], [facility], Partial fill upon patient [...] 2 Refills, Maintenance, 06/06/22 13:18:00 EDT, Tablet, [facility] # [facility], Partial fill upon patient [...] capsule, 11 Refills, Maintenance, 04/29/19 17:44:00 EST, [facility] #[id number], 155, cm, 04/11/19 11:34:00 EST, Height, 56.8, kg, 04/11/19 11:34:00 EST, Dry Weight Start Date: 04/29/19 Status: Ordered diazepam 2 mg oral tablet 4 mg, 2, tablet, By Mouth, 2 times a day, masspat checked, # 120 tablet, Refills 4, Tot. Refills 4,Maintenance, 05/04/22 14:36:00 EST, Route to Pharmacy Electronically, [facility] # [facility], 159, cm,02/04/22 14:02:00 EST, Height, 59.2, kg, 10/26/21 1... Start Date: 05/04/22 Stop Date: 10/01/22 Status: Ordered Euthyrox 25 mcg (0.025 mg) oral tablet See Instructions, TAKE 1 TABLET BY MOUTH DAILY ALTERNATING WITH 1.5 TABLETS EVERY OTHER DAY, # 45 tablet, 2 Refills, Maintenance, 08/28/22 17:47:00 EDT, [facility] # 20, 158, cm, 08/08/22 14:58:00 EDT, Height, 63.8, kg, 07/14/22 15:22:00 EDT, Dry... Start Date: 08/28/22 Status: Ordered fluticasone 50 mcg/inh nasal spray 1 sprays = 50 mcg, Nares, Both, Daily, PRN Nasal Congestion, as needed, # 16 Gm, 3 Refills, Maintenance, 06/06/22 13:18:00 EDT, Nasal [place], [facility] # 20, 1 sprays Nares, Both Daily,PRN:Nasal Congestion,Instr:as needed, 159, cm, 06/06/22 13:01:... Start Date: 06/06/22 Status: Ordered Folic Acid = 800 mcg, Daily, 0 Refills, Maintenance, 02/13/14 19:02:48 Start Date: 02/13/14 Status: Ordered pantoprazole 40 mg oral delayed release tablet 1 tablet = 40 mg, By Mouth, 2 times a day, IN AM BEFORE BREAKFAST AND AT BEDTIME, # 60 tablet, 1 Refills, Maintenance, 08/08/22 16:05:00 EDT, CR Tablet, 158, cm, 08/08/22 14:58:00 EDT, Height, 63.8, kg, 07/14/22 15:22:00 EDT, Dry Weight Start Date: 08/08/22 Stop Date: 10/07/22 Status: Ordered pantoprazole 40 mg oral delayed release tablet 1 tablet = 40 mg, By Mouth, Daily, # 30 tablet, 6 Refills, Maintenance, 10/20/17 16:18:00, EC Tablet Start Date: 01/13/17 Status: Ordered Praluent Pen 75 mg/mL subcutaneous solution See Instructions, 75 mg Subcutaneous Infusion once every 2 weeks rotate injection sites, # 2 each, 2 Refills, Maintenance, 02/04/22 16:26:00 EST, [facility] # 20, 159, cm, 02/04/22 14:02:00 EST, Height, 59.2, kg, 10/26/21 15:18:00 EDT, Dry Weight Start Date: 02/04/22 Status: Ordered sertraline 100 mg oral tablet 1.5 tablet = 150 mg, By Mouth, Daily, # 45 tablet, 4 Refills, Maintenance, 08/30/22 15:08:00 EDT, Tablet, [facility] # 20, 158, cm, 08/08/22 14:58:00 EDT, Height, 63.8, kg, 07/14/22 15:22:00 EDT,Dry Weight Start Date: 08/30/22 Stop Date: 01/27/23 Status: Ordered sucralfate 1 gm oral tablet 1, tablet, By Mouth, 3 times a day before meals, ON AN ON AN EMPTY STOMACH., # 90 tablet, Refills 2, Tot. Refills 2, Maintenance, 07/11/22 20:08:00 EDT, Route to Pharmacy Electronically, [facility] #[id number], 158, cm, 06/22/22 10:29:00 EDT, Hei... Start [...] 30 tablet, 4 Refills, Maintenance,10/26/21 15:45:00 EDT, [facility] # [facility], Partial fill upon patient request if the prescription is for a schedule II opioid drug., 159, cm, 10/26/21... Start Date: 10/26/21 Status: Ordered Problem List Condition Confirmation Course Effective Dates Status H ealth Status Informant Acute promyelocytic leukemia, TRICE M3, in remission Confirmed Active Adverse reaction to vaccine Confirmed Active Anemia Confirmed Active Anxiety disorder Confirmed Active Arthritis Confirmed Active Vaginal atrophy Confirmed Active Barreto's esophagus Confirmed Active Cerebral palsy Confirmed Active Choking Confirmed Active Left elbow contusion Confirmed Active Cough Confirmed Active SOB (shortness of breath) Confirmed Active Dysuria Confirmed Active Fall in [...] Care team information Care Team Personnel Name: Nancy Love [place] Position: [facility] RN Member Role: Primary Care Nurse Name: Brigid Abbasi Position: [facility] RN Member Role: Primary Care Nurse Name: Rowan Garner MD Position: [facility] Physician - Primary Care Member Role: PCP Address: Address: [address] [place] [id number] Name: Liz Ley RN Position: [facility] RN Member Role: Primary Care Nurse Care Team Related Persons Name: Romel ALONZO Address: home [address] [place], [place] Name: WENDY CHEN Address: home [address] [place], [place] Name: YAMEL CHEN Address: home [address] [place], [place] Name: PEPE LINARES Address: home [address] [place], [place]
--- OUTSIDE RECORDS SUMMARY | 2022-10-07 06:12 | XMS_ITS | Continuity of Care Document ---
Author Name Unknown Organization [facility] Address [address] [place] [address]- Care Team Providers Care Public Stenographer Name Role Phone Patsy GERARDO, Rowan Leone Primary Care Physician Encounter [facility] Date(s): 08/10/22 - 09/09/22 [facility] [address] [place] [address]- Allergies, Adverse Reactions, Alerts Substance Reaction Severity Status aspirin Active atorvastatin abd pain Active sulfa drugs Rash Active Dipentum Active Bactrim Active nonsteroidal anti-inflammatory agents Active voriconazole Active Abilify Active Soy Products Active Lactose Active NSAIDs Active Latex Unknown Active Immunizations Given and Recorded Vaccine Date [...] mL, 5 Refills, Maintenance, 04/08/21 17:11:00 EST, [place], [facility], Partial fill upon [...] 2 Refills, Maintenance, 06/06/22 13:18:00 EDT, Tablet, [facility] # [facility], Partial fill upon patient [...] capsule, 11 Refills, Maintenance, 04/29/19 17:44:00 EST, [facility] #[id number], 155, cm, 04/11/19 11:34:00 EST, Height, 56.8, kg, 04/11/19 11:34:00 EST, Dry Weight Start Date: 04/29/19 Status: Ordered diazepam 2 mg oral tablet 4 mg, 2, tablet, By Mouth, 2 times a day, masspat checked, # 120 tablet, Refills 4, Tot. Refills 4,Maintenance, 05/04/22 14:36:00 EST, Route to Pharmacy Electronically, [facility] # [facility], 159, cm,02/04/22 14:02:00 EST, Height, 59.2, kg, 10/26/21 1... Start Date: 05/04/22 Stop Date: 10/01/22 Status: Ordered Euthyrox 25 mcg (0.025 mg) oral tablet See Instructions, TAKE 1 TABLET BY MOUTH DAILY ALTERNATING WITH 1.5 TABLETS EVERY OTHER DAY, # 45 tablet, 2 Refills, Maintenance, 08/28/22 17:47:00 EDT, [facility] # 20, 158, cm, 08/08/22 14:58:00 EDT, Height, 63.8, kg, 07/14/22 15:22:00 EDT, Dry... Start Date: 08/28/22 Status: Ordered fluticasone 50 mcg/inh nasal spray 1 sprays = 50 mcg, Nares, Both, Daily, PRN Nasal Congestion, as needed, # 16 Gm, 3 Refills, Maintenance, 06/06/22 13:18:00 EDT, Nasal [place], [facility] # 20, 1 sprays Nares, [...] each, 2 Refills, Maintenance, 02/04/22 16:26:00 EST, [facility] # 20, 159, cm, 02/04/22 14:02:00 EST, Height, 59.2, kg, 10/26/21 15:18:00 EDT, Dry Weight Start Date: 02/04/22 Status: Ordered sertraline 100 mg oral tablet 1.5 tablet = 150 mg, By Mouth, Daily, # 45 tablet, 4 Refills, Maintenance, 08/30/22 15:08:00 EDT, Tablet, [facility] # 20, 158, cm, 08/08/22 14:58:00 EDT, Height, 63.8, kg, 07/14/22 15:22:00 EDT,Dry Weight Start Date: 08/30/22 Stop Date: 01/27/23 Status: Ordered sucralfate 1 gm oral tablet 1, tablet, By Mouth, 3 times a day before meals, ON AN ON AN EMPTY STOMACH., # 90 tablet, Refills 2, Tot. Refills 2, Maintenance, 07/11/22 20:08:00 EDT, Route to Pharmacy Electronically, [facility] #[id number], 158, cm, 06/22/22 10:29:00 EDT, Hei... Start [...] Team Personnel Name: Nancy Love [place] Position: [facility] RN Member Role: Primary Care Nurse Name: Brigid Abbasi Position: [facility] RN Member Role: Primary Care Nurse Name: Rowan Garner MD Position: [facility] Physician - Primary Care Member Role: PCP Address: Address: [address] [place] [id number] Name: Liz Ley RN Position: [facility] RN Member Role: Primary Care Nurse Care Team Related Persons Name: Romel ALONZO Address: home [address] [place], [place] Name: WENDY CHEN Address: home [address] [place], [place] Name: YAMEL CHEN Address: home [address] [place], [place] Name: PEPE LINARES Address: home [address] [place], [place]
--- OUTSIDE RECORDS SUMMARY | 2022-10-07 06:12 | XMS_ITS | Continuity of Care Document ---
Author Name Unknown Organization [facility] [place] Address [address] [place] [address]- Care Team Providers Care Getter Filler Name Role Phone Rowan Garner MD Primary Care Physician [phone] Encounter [facility] Date(s): 11/05/19 - 12/05/19 [facility] [place] [address] [place] [address]- [facility] Allergies, Adverse Reactions, Alerts Substance [...] day, # 10 tablet, 5 Refills, Maintenance, 04/20/20 16:13:00 EDT, [facility] #[id number], 1 tablet By Mouth Daily,x30 days,PRN:Headache,I... Start [...] capsule, 11 Refills, Maintenance, 04/29/19 17:44:00 EST, [facility] #[id number], 155, cm, 04/11/19 11:34:00 EST, Height, 56.8, kg, 04/11/19 11:34:00 EST, Dry Weight Start Date: 04/29/19 Status: Ordered Folic Acid = 800 mcg, Daily, 0 Refills, Maintenance, 02/13/14 19:02:48 Start Date: 02/13/14 Status: Ordered levothyroxine 0.025 mg oral tablet See Instructions, TAKE 1 TABLET ALTERNATING WITH 1.5 TABLETS BY MOUTH EVERY OTHER DAY, # 45 tablet,5 Refills, Soft Stop, 05/21/19 10:56:00 EST, [facility] #[id number], 155, cm, 05/07/19 13:47:00 EST, Height, 56.9, [...]
--- OUTSIDE RECORDS SUMMARY | 2022-10-07 06:13 | XMS_ITS | Continuity of Care Document ---
Author Name Unknown Organization [facility] Address [address] [place] [address]- Care Team Providers Care Correctional Food Service Supervisor Name Role Phone Rowan Garner MD Primary Care Physician Encounter [facility] Date(s): 08/31/20 - 09/30/20 [facility] [address] [place], [place] [address] Allergies, Adverse Reactions, Alerts Substance Reaction Severity [...] tablet, 5 Refills, Maintenance, 07/21/20 20:30:00 EDT, [facility] # 20, 1 tablet By [...] 11 Refills, Maintenance, 04/29/19 17:44:00 EST, [facility] #[id number], 155, cm, 04/11/19 11:34:00 EST, Height, 56.8, kg, 04/11/19 11:34:00 EST, Dry Weight Start Date: 04/29/19 Status: Ordered diazepam 2 mg oral tablet 4 mg, 2, tablet, By Mouth, 2 times a day, # 120 tablet, Refills 4, Tot. Refills 4, Maintenance, 07/21/20 20:35:00 EDT, Route to Pharmacy Electronically, [facility] # [facility], 155, cm, 07/02/20 11:11:00 EDT, Height, 54.5, kg, 06/12/20 17:32:00 EDT, Dry... Start Date: 07/21/20 Stop Date: 12/18/20 Status: Ordered Folic Acid = 800 mcg, [...] each, 3 Refills, Maintenance, 03/23/20 15:54:00 EST, [facility] #[id number], 155, cm, 03/17/20 13:55:00 EST, Height, 56.9, [...]
--- OUTSIDE RECORDS SUMMARY | 2022-10-07 06:13 | XMS_ITS | Continuity of Care Document ---
Author Name Unknown Organization [facility] [place] Address [address] [place] [address]- Care Team Providers Care Template Maker Name Role Phone Rowan Garner MD Primary Care Physician Encounter [facility] Date(s): 07/02/20 - 08/01/20 [facility] [address] [place], [place] [address] Attending Physician: Yoly Siddiqi Admitting Physician: AdmtrYoly [...] tablet, 5 Refills, Maintenance, 07/21/20 20:30:00 EDT, [facility] # 20, 1 tablet By Mouth [...] capsule, 11 Refills, Maintenance, 04/29/19 17:44:00 EST, [facility] #[id number], 155, cm, 04/11/19 11:34:00 EST, Height, 56.8, kg, 04/11/19 11:34:00 EST, Dry Weight Start Date: 04/29/19 Status: Ordered diazepam 2 mg oral tablet 4 mg, 2, tablet, By Mouth, 2 times a day, # 120 tablet, Refills 4, Tot. Refills 4, Maintenance, 07/21/20 20:35:00 EDT, Route to Pharmacy Electronically, [facility] # [facility], 155, cm, 07/02/20 11:11:00 EDT, Height, 54.5, kg, 06/12/20 17:32:00 EDT, Dry... Start Date: 07/21/20 Stop Date: 12/18/20 Status: Ordered Folic Acid = 800 mcg, Daily, 0 Refills, Maintenance, 02/13/14 19:02:48 Start Date: 02/13/14 Status: Ordered levothyroxine 0.025 mg oral tablet See Instructions, TAKE 1 TABLET BY MOUTH DAILY ALTERNATING WITH 1.5 TABLETS BY MOUTH EVERY OTHER DAY, # 32 tablet, 1 Refills, 06/15/20 18:42:00 EDT, [facility] #[id number], NEEDS APPOINTMENT FORFURTHER REFILLS with WEIGHT CHECKER, 155, cm, 06/12/20 17:32:00... Start Date: 06/15/20 Status: Ordered pantoprazole 40 mg oral delayed [...] each, 3 Refills, Maintenance, 03/23/20 15:54:00 EST, [facility] #[id number], 155, cm, 03/17/20 13:55:00 EST, Height, 56.9, kg, 05/07/19 13:47:00 EST, Dr... Start Date: 03/23/20 Status: Ordered Viactiv Soft [...]
--- OUTSIDE RECORDS SUMMARY | 2022-10-07 06:13 | XMS_ITS | Continuity of Care Document ---
Author Name Unknown Organization [facility] Address [address] [place] [address]- Care Team Providers Care Cash Applications Specialist Name Role Phone Rowan Garner MD Primary Care Physician Encounter [facility] [id number] Date(s): 08/08/22 - 09/17/22 [facility] [address] [place] [address]- Attending Physician: Rowan Garner MD Allergies, Adverse Reactions, Alerts Substance Reaction [...] Given Patient Refuses 1Result Comment: GIVEN AT [facility] 2Result Comment: [01/04/2017] [facility] 3Result [...] mL, 5 Refills, Maintenance, 04/08/21 17:11:00 EST, [place], [facility], Partial fill upon [...] 2 Refills, Maintenance, 06/06/22 13:18:00 EDT, Tablet, [facility] # [facility], Partial fill upon [...] capsule, 11 Refills, Maintenance, 04/29/19 17:44:00 EST, [facility] #[id number], 155, cm, 04/11/19 11:34:00 EST, Height, 56.8, kg, 04/11/19 11:34:00 EST, Dry Weight Start Date: 04/29/19 Status: Ordered diazepam 2 mg oral tablet 4 mg, 2, tablet, By Mouth, 2 times a day, masspat checked, # 120 tablet, Refills 4, Tot. Refills 4,Maintenance, 05/04/22 14:36:00 EST, Route to Pharmacy Electronically, [facility], 159, cm,02/04/22 14:02:00 EST, Height, 59.2, kg, 10/26/21 1... Start Date: 05/04/22 Stop Date: 10/01/22 Status: Ordered Euthyrox 25 mcg (0.025 mg) oral tablet See Instructions, TAKE 1 TABLET BY MOUTH DAILY ALTERNATING WITH 1.5 TABLETS EVERY OTHER DAY, # 45 tablet, 2 Refills, Maintenance, 08/28/22 17:47:00 EDT, [facility] # 20, 158, cm, 08/08/22 14:58:00 EDT, Height, 63.8, kg, 07/14/22 15:22:00 EDT, Dry... Start Date: 08/28/22 Status: Ordered fluticasone 50 mcg/inh nasal spray 1 sprays = 50 mcg, Nares, Both, Daily, PRN Nasal Congestion, as needed, # 16 Gm, 3 Refills, Maintenance, 06/06/22 13:18:00 EDT, Nasal [place], [facility] # [facility], 1 sprays Nares, [...] each, 2 Refills, Maintenance, 02/04/22 16:26:00 EST, [facility] # [facility], 159, cm, 02/04/22 14:02:00 EST, Height, 59.2, kg, 10/26/21 15:18:00 EDT, Dry Weight Start Date: 02/04/22 Status: Ordered sertraline 100 mg oral tablet 1.5 tablet = 150 mg, By Mouth, Daily, # 45 tablet, 4 Refills, Maintenance, 08/30/22 15:08:00 EDT, Tablet, [facility] # [facility], 158, cm, 08/08/22 14:58:00 EDT, Height, 63.8, kg, 07/14/22 15:22:00 EDT,Dry Weight Start Date: 08/30/22 Stop Date: 01/27/23 Status: Ordered sucralfate 1 gm oral tablet 1, tablet, By Mouth, 3 times a day before meals, ON AN ON AN EMPTY STOMACH., # 90 tablet, Refills 2, Tot. Refills 2, Maintenance, 07/11/22 20:08:00 EDT, Route to Pharmacy Electronically, [facility] #[id number], 158, cm, 06/22/22 10:29:00 EDT, Hei... Start [...] 30 tablet, 4 Refills, Maintenance,10/26/21 15:45:00 EDT, [facility] # [facility], Partial fill upon [...] Team Personnel Name: Nancy Love [place] Position: [facility] RN Member Role: Primary Care Nurse Name: Brigid Abbasi Position: [facility] RN Member Role: Primary Care Nurse Name: Rowan Garner MD Position: [facility] Physician - Primary Care Member Role: PCP Address: Address: [address] [place] [id number]- Name: Liz Ley RN Position: [facility] RN Member Role: Primary Care Nurse Care Team Related Persons Name: Romel ALONZO Address: home [address] [place] [address] [address] [place], [place] Name: WENDY CHEN Address: home [address] [place], [place] Name: YAMEL CHEN Address: home [address] [place], [place] Name: PEPE LINARES Address: home [address] [place] [address] [address] [place] [id number]
--- OUTSIDE RECORDS SUMMARY | 2022-10-07 06:13 | XMS_ITS | Continuity of Care Document ---
Author Name Unknown Organization [facility] [place] Address [address] [place] [address]- Care Team Providers Care Analytical Statistician Name Role Phone Patsy GERARDO, Rowan Leone Primary Care Physician Encounter [facility] Date(s): 08/05/19 - 08/12/19 [facility] [address] [address]- [facility] Attending Physician: Panda Joseph MD Allergies, Adverse Reactions, Alerts Substance Reaction [...] tablet, 5 Refills, Maintenance, 07/15/19 16:13:00 EDT, [facility] #[id number], 1 tablet By Mouth Daily,x30 days,PRN:Headache,I... Start [...] capsule, 11 Refills, Maintenance, 04/29/19 17:44:00 EST, [facility] #[id number], 155, cm, 04/11/19 11:34:00 EST, Height, 56.8, kg, 04/11/19 11:34:00 EST, Dry Weight Start Date: 04/29/19 Status: Ordered diazepam 2 mg oral tablet See Instructions, Take 1 tab in AM, and 2 in PM., # 90 tablet, Refills 5, Tot. Refills 5, Maintenance, 07/15/19 16:16:00 EDT, Instructions Replace Required Details, Route to Pharmacy Electronically, [facility] #[id number], 155, cm, 05/07/19 13:47... Start Date: 07/15/19 Status: Ordered fluticasone 50 mcg/inh nasal spray 1 sprays, Nares, Both, Daily, PRN Nasal Congestion, # 16 Gm, 0 Refills, Maintenance, 10/22/14 17:35:07 EDT, [place] Start Date: 10/22/14 Status: Ordered Folic Acid = 800 mcg, Daily, 0 Refills, Maintenance, 02/13/14 19:02:48 Start Date: 02/13/14 Status: Ordered levothyroxine 0.025 mg oral tablet See Instructions, TAKE 1 TABLET ALTERNATING WITH 1.5 TABLETS BY MOUTH EVERY OTHER DAY, # 45 tablet,5 Refills, Soft Stop, 05/21/19 10:56:00 EST, [facility] #[id number], 155, cm, 05/07/19 13:47:00 EST, Height, 56.9, [...]
--- OUTSIDE RECORDS SUMMARY | 2022-10-07 06:13 | XMS_ITS | Continuity of Care Document ---
Author Name Unknown Organization [facility] [place] Address [address] [place] [address]- Care Team Providers Care Shuttle Buggy Operator Name Role Phone Patsy GERARDO, Rowan Leone Primary Care Physician [phone] Encounter [facility] Date(s): 02/09/21 - 03/11/21 [facility] [address] [place], [place] [address] Allergies, Adverse Reactions, Alerts Substance Reaction Severity [...] Given Patient Refuses 1Result Comment: GIVEN AT [facility] 2Result Comment: [01/04/2017] [facility] [...] capsule, 11 Refills, Maintenance, 04/29/19 17:44:00 EST, [email or web address] #[id number], 155, cm, 04/11/19 11:34:00 EST, Height, 56.8, kg, 04/11/19 11:34:00 EST, Dry Weight Start Date: 04/29/19 Status: Ordered diazepam 2 mg oral tablet 4 mg, 2, tablet, By Mouth, 3 times a day, for 30 days, # 180 tablet, Refills 3, Tot. Refills 3, Acute 06/03/21 10:50:00 EST, 02/03/21 10:50:00 EST, Route to Pharmacy Electronically, [facility] # [facility], 155, cm, 02/01/21 17:23:00 EST, Height, 54.5, kg... Start Date: 02/03/21 Stop Date: 06/03/21 Status: Ordered diazepam 2 mg oral tablet 4 mg, 2, tablet, By Mouth, 2 times a day, # 120 tablet, Refills 5, Tot. Refills 5, Maintenance, 01/14/21 12:51:00 EDT, Route to Pharmacy Electronically, [facility], 155, cm, 11/20/20 9:27:00EDT, Height, 54.5, kg, 06/12/20 17:32:00 EDT, Dry W... Start Date: 01/14/21 Stop Date: 07/13/21 Status: Ordered Folic Acid = 800 mcg, [...] each, 3 Refills, Maintenance, 03/23/20 15:54:00 EST, [email or web address] #[id number], 155, cm, 03/17/20 13:55:00 EST, Height, 56.9, [...]
--- OUTSIDE RECORDS SUMMARY | 2022-10-07 06:13 | XMS_ITS | Continuity of Care Document ---
Author Name Unknown Organization [facility] Address [address] [place] [address]- Care Team Providers Care Superintendent Schools Name Role Phone Rowan Garner MD Primary Care Physician Encounter [facility] Date(s): 10/11/19 - 11/10/[address] [address]- [facility] Attending Physician: Yoly Siddiqi Admitting Physician: AdmtrYoly Referring Physician: AdmtrYoly Allergies, Adverse Reactions, Alerts Substance Reaction Severity Status aspirin Active atorvastatin abd pain Active sulfa drugs Rash Active Dipentum Active Bactrim Active nonsteroidal anti-inflammatory agents Active voriconazole Active Abilify Active NSAIDs Active Latex Unknown Active Soy Products Active [...] tablet, 5 Refills, Maintenance, 07/15/19 16:13:00 EDT, [facility] #[id number], 1 tablet By Mouth Daily,x30 days,PRN:Headache,I... Start [...] capsule, 11 Refills, Maintenance, 04/29/19 17:44:00 EST, [facility] #[id number], 155, cm, 04/11/19 11:34:00 EST, Height, 56.8, kg, 04/11/19 11:34:00 EST, Dry Weight Start Date: 04/29/19 Status: Ordered Folic Acid = 800 mcg, Daily, 0 Refills, Maintenance, 02/13/14 19:02:48 Start Date: 02/13/14 Status: Ordered levothyroxine 0.025 mg oral tablet See Instructions, TAKE 1 TABLET ALTERNATING WITH 1.5 TABLETS BY MOUTH EVERY OTHER DAY, # 45 tablet,5 Refills, Soft Stop, 05/21/19 10:56:00 EST, [facility] #[id number], 155, cm, 05/07/19 13:47:00 EST, Height, 56.9, kg, 05/07/19 13:47:00 EST, Dry... Start Date: 05/21/19 Status: Ordered pantoprazole 40 mg oral delayed release tablet 1 tablet = 40 mg, By Mouth, 2 times a day, # 60 tablet, 1 Refills, Maintenance, 11/04/19 15:04:00 EDT, [facility], 155, cm, 05/07/19 13:47:00 EST, Height, 56.9, kg, 05/07/19 13:47:00 EST, Dry Weight Start Date: 11/04/19 Status: Ordered Viactiv Soft Calcium Chews Calcium [...]
--- OUTSIDE RECORDS SUMMARY | 2022-10-07 06:13 | XMS_ITS | Continuity of Care Document ---
Author Name Unknown Organization [facility] [place] Address [address] [place] [address]- Care Team Providers Care Forensic Audit Expert Name Role Phone Rowan Garner MD Primary Care Physician Encounter [facility] Date(s): 03/17/20 - 04/16/20 [facility] [address] [place] [address]- Attending Physician: Yoly Siddiqi Admitting Physician: Admtr, Yoly Referring Physician: Admtr, Ar8 Allergies, Adverse Reactions, [...] Given Patient Refuses 1Result Comment: GIVEN AT [facility] 2Result Comment: [01/04/2017] [facility] 3Result [...] tablet, 5 Refills, Maintenance, 07/15/19 16:13:00 EDT, [facility] #[id number], 1 tablet By Mouth Daily,x30 days,PRN:Headache,I... Start [...] capsule, 11 Refills, Maintenance, 04/29/19 17:44:00 EST, [facility] #[id number], 155, cm, 04/11/19 11:34:00 EST, Height, 56.8, [...] each, 3 Refills, Maintenance, 03/23/20 15:54:00 EST, [facility] #[id number], 155, cm, 03/17/20 13:55:00 EST, Height, 56.9, [...]
--- OUTSIDE RECORDS SUMMARY | 2022-10-07 06:13 | XMS_ITS | Continuity of Care Document ---
Author Name Unknown Organization [facility] [place] Address [address] [place] [address]- Care Team Providers Care Bakery Demonstrator Name Role Phone Patsy GERARDO, Rowan Leone Primary Care Physician [phone] [facility] Date(s): 10/11/21 - 11/10/21 [facility] [address] [place] [address]- Attending Physician: Yoly Siddiqi Admitting Physician: AdmYoly leary Referring Physician: [id number] Allergies, Adverse Reactions, Alerts Substance Reaction Severity [...] Given Patient Refuses [facility] 2Result Comment: [01/04/2017] [facility] 3Result Comment: [...] tablet, 0 Refills, Maintenance, 07/28/21 10:04:00 EDT, [facility] # [facility], As needed for severe headache. no... Start Date: 07/28/21 Status: Ordered azelastine 137 mcg/inh (0.1%) nasal spray 2 sprays, Nares, Both, Daily, PRN Other Allergies, in each nostril, # 30 mL, 5 Refills, Maintenance, 04/08/21 17:11:00 EST, [place], [facility] # [facility], Partial fill upon patient [...] capsule, 11 Refills, Maintenance, 04/29/19 17:44:00 EST, [facility] #[id number], 155, cm, 04/11/19 11:34:00 EST, Height, 56.8, [...] each, 3 Refills, Maintenance, 03/23/20 15:54:00 EST, [facility] #[id number], 155, cm, 03/17/20 13:55:00 EST, Height, 56.9, [...] Active Barreto's esophagus(Confirmed) Active Cerebral palsy(Confirmed) Active Left elbow contusion(Confirmed) Active Depression(Confirmed) Active Dysuria(Confirmed) Active Fall in home(Confirmed) Active Esophageal reflux(Confirmed) Active DORINDA (generalized anxiety disorder)(Confirmed) Active Cephalgia(Confirmed) Active Hip pain(Confirmed) Active Hyperlipidemia(Confirmed) Active Hypothyroidism(Confirmed) Active Left wrist fracture(Confirmed) Active Iron deficiency anemia(Confirmed) Active Migraines(Confirmed) Active Mild intellectual disabilities(Confirmed) Active Right leg weakness(Confirmed) Active Arthralgia of multiple sites(Confirmed) Active Dyspareunia, female(Confirmed) Active MDD (major depressive disord er), recurrent, in full remission(Confirmed) Active Major depressive disorder, r ecurrent episode, mild(Confirmed) Active Depression, major, recurrent , moderate(Confirmed) Active Segmental and somatic dysfun ction of cervical region(Confirmed) Active Back spasm(Confirmed) Active Fatty liver(Confirmed) Active Syncope(Confirmed) Active Tardive dyskinesia(Confirmed) Active Ulcerative colitis(Confirmed) Active Social History Social History Type Response Smoking Status Never smoker entered on: 04/16/14 Sex
--- OUTSIDE RECORDS SUMMARY | 2022-10-07 06:13 | XMS_ITS | Continuity of Care Document ---
Author Name Unknown Organization [facility] [place] Address [address] [place] [address]- Care Team Providers Care Property Management Coordinator Name Role Phone Patsy GERARDO, Rowan Leone Primary Care Physician Encounter [facility] Date(s): 05/02/19 - 09/07/19 [facility] [address] [address]- [facility] Attending Physician: Panda Joseph MD Allergies, Adverse [...] tablet, 5 Refills, Maintenance, 07/15/19 16:13:00 EDT, [facility] #[id number], 1 tablet By Mouth Daily,x30 days,PRN:Headache,I... Start [...] capsule, 11 Refills, Maintenance, 04/29/19 17:44:00 EST, [facility] #[id number], 155, cm, 04/11/19 11:34:00 EST, Height, 56.8, kg, 04/11/19 11:34:00 EST, Dry Weight Start Date: 04/29/19 Status: Ordered diazepam 2 mg oral tablet See Instructions, Take 1 tab in AM, and 2 in PM., # 90 tablet, Refills 5, Tot. Refills 5, Maintenance, 07/15/19 16:16:00 EDT, Instructions Replace Required Details, Route to Pharmacy Electronically, [facility] #[id number], 155, cm, 05/07/19 13:47... Start Date: 07/15/19 Status: Ordered fluticasone 50 mcg/inh nasal spray 1 sprays, Nares, Both, Daily, PRN Nasal Congestion, # 16 Gm, 0 Refills, Maintenance, 10/22/14 17:35:07 EDT, [place] Start Date: 10/22/14 Status: Ordered Folic Acid = 800 mcg, Daily, 0 Refills, Maintenance, 02/13/14 19:02:48 Start Date: 02/13/14 Status: Ordered levothyroxine 0.025 mg oral tablet See Instructions, TAKE 1 TABLET ALTERNATING WITH 1.5 TABLETS BY MOUTH EVERY OTHER DAY, # 45 tablet,5 Refills, Soft Stop, 05/21/19 10:56:00 EST, [facility] #[id number], 155, cm, 05/07/19 13:47:00 EST, Height, 56.9, [...]
--- OUTSIDE RECORDS SUMMARY | 2022-10-07 06:13 | XMS_ITS | Continuity of Care Document ---
Author Name Unknown Organization [facility] [place] Address [address] [place] [address]- Care Team Providers Care Painter And Body Work Name Role Phone Patsy GERARDO, Rowan Leone Primary Care Physician Encounter [facility] Date(s): 07/27/21 - 08/26/21 [facility] [place] [address] [place] [address]- Allergies, Adverse Reactions, Alerts Substance Reaction Severity Status aspirin Active sulfa drugs Rash Active Dipentum Active Bactrim Active nonsteroidal anti-inflammatory agents Active voriconazole Active Abilify Active NSAIDs Active Lactose Active atorvastatin abd pain Active Latex Unknown Active Soy Products Active Immunizations Given and [...] Given Patient Refuses 1Result Comment: GIVEN AT [facility] 2Result Comment: [01/04/2017] [facility] 3Result Comment: [...] tablet, 0 Refills, Maintenance, 07/28/21 10:04:00 EDT, [facility] # [facility], As needed for severe headache. no... Start Date: 07/28/21 Status: Ordered azelastine 137 mcg/inh (0.1%) nasal spray 2 sprays, Nares, Both, Daily, PRN Other Allergies, in each nostril, # 30 mL, 5 Refills, Maintenance, 04/08/21 17:11:00 EST, [place], [facility] # [facility], Partial fill upon patient [...] capsule, 11 Refills, Maintenance, 04/29/19 17:44:00 EST, [facility] #[id number], 155, cm, 04/11/19 11:34:00 EST, Height, 56.8, [...] each, 3 Refills, Maintenance, 03/23/20 15:54:00 EST, [facility] #[id number], 155, cm, 03/17/20 13:55:00 EST, Height, 56.9, [...]
--- OUTSIDE RECORDS SUMMARY | 2022-10-07 06:13 | XMS_ITS | Continuity of Care Document ---
Author Name Unknown Organization [facility] Primary [facility] [place] Address [address] [facility] [place] [address]- Care Team Providers Care Tour Escort Name Role Phone Rowan Garner MD Primary Care Physician [phone] Encounter [facility] Date(s): 11/27/18 - 07/13/19 [facility] [place] [address] [facility] [place] [address]- [facility] Attending Physician: Rowan Garner MD Admitting Physician: Rowan Garner MD Allergies, Adverse Reactions, [...] day, # 10 tablet, 5 Refills, Maintenance, 02/25/19 12:36:46 EST, 1 tablet By Mouth Daily,x30 days,PRN:Headache,Instr:no increases. use sparin... Start Date: 02/25/19 Stop Date: 08/24/19 Status: Ordered Centrum Silver Ultra Women's 1 [...] capsule, 11 Refills, Maintenance, 04/29/19 17:44:00 EST, [facility] #[id number], 155, cm, 04/11/19 11:34:00 EST, Height, 56.8, kg, 04/11/19 11:34:00 EST, Dry Weight Start Date: 04/29/19 Status: Ordered diazepam 2 mg oral tablet See Instructions, Take 1 tab in AM, and 2 in PM., # 90 tablet, Refills 5, Tot. Refills 5, Maintenance, 02/25/19 12:37:52 EST, Instructions Replace Required Details, Route to Pharmacy Electronically, [id number], [facility] - [address] [place] [address] Start Date: 02/25/19 Status: Ordered fluticasone 50 mcg/inh nasal spray 1 sprays, Nares, Both, Daily, PRN Nasal Congestion, # 16 Gm, 0 Refills, Maintenance, 10/22/14 17:35:07 EDT, [place] Start Date: 10/22/14 Status: Ordered Folic Acid = 800 mcg, Daily, 0 Refills, Maintenance, 02/13/14 19:02:48 Start Date: 02/13/14 Status: Ordered levothyroxine 0.025 mg oral tablet See Instructions, TAKE 1 TABLET ALTERNATING WITH 1.5 TABLETS BY MOUTH EVERY OTHER DAY, # 45 tablet,5 Refills, Soft Stop, 05/21/19 10:56:00 EST, [facility] #[id number], 155, cm, 05/07/19 13:47:00 EST, Height, 56.9, [...]
--- OUTSIDE RECORDS SUMMARY | 2022-10-07 06:13 | XMS_ITS | Continuity of Care Document ---
Author Name Unknown Organization [facility] Address [address] [place] [address]- Care Team Providers Care Authorization Manager Name Role Phone Patsy GERARDO, Rowan Leone Primary Care Physician Encounter [facility] Date(s): 07/14/22 - 07/14/[address] [address]- Discharge Disposition: A-D/C Home Attending Physician: Jose Candelario MD Admitting Physician: Jose Candelario MD Referring Physician: Not on Staff, Referring [...] Given Patient Refuses 1Result Comment: GIVEN AT [facility] 2Result Comment: [01/04/2017] [facility] 3Result [...] each, 3 Refills, Maintenance, 06/22/22 12:34:00 EDT, [facility] # [facility], Partial fill upon patient [...] 15:15:00 EDT, Aerosol, Route to Pharmacy Electronically, [id number], [facility] # [facility], 158, cm, 07/14/22... Start Date: 07/14/22 Stop Date: 08/20/22 Status: Ordered albuterol CFC free 90 mcg/inh inhalation aerosol 1, puffs, Inhalation, Every 8 hours, PRN, # 1 each, Refills 0, Tot. Refills 0, Soft Stop, 10/04/17 12:37:39 EDT, Aerosol, Route to Pharmacy Electronically, NCPDP_[id number], [facility] - [address], [place] Start Date: 10/04/17 Status: Ordered azelastine 137 mcg/inh (0.1%) nasal spray 2 sprays, Nares, Both, Daily, PRN Other Allergies, in each nostril, # 30 mL, 5 Refills, Maintenance, 04/08/21 17:11:00 EST, [place], [facility] # [facility], Partial fill upon patient [...] 2 Refills, Maintenance, 06/06/22 13:18:00 EDT, Tablet, [facility] # [facility], Partial fill upon patient [...] capsule, 11 Refills, Maintenance, 04/29/19 17:44:00 EST, [facility] #[id number], 155, cm, 04/11/19 11:34:00 EST, Height, 56.8, kg, 04/11/19 11:34:00 EST, Dry Weight Start Date: 04/29/19 Status: Ordered diazepam 2 mg oral tablet 4 mg, 2, tablet, By Mouth, 2 times a day, masspat checked, # 120 tablet, Refills 4, Tot. Refills 4,Maintenance, 05/04/22 14:36:00 EST, Route to Pharmacy Electronically, [facility] # [facility], 159, cm,02/04/22 14:02:00 EST, Height, 59.2, kg, 10/26/21 1... Start Date: 05/04/22 Stop Date: 10/01/22 Status: Ordered Euthyrox 25 mcg (0.025 mg) oral tablet See Instructions, TAKE 1 TABLET BY MOUTH DAILY ALTERNATING WITH 1.5 TABLETS EVERY OTHER DAY, # 45 tablet, 5 Refills, Maintenance, 02/04/22 13:36:00 EST, [facility] # 20, 159, cm, 10/26/21 15:18:00 EDT, Height, 59.2, kg, 10/26/21 15:18:00 EDT, Dry... Start Date: 02/04/22 Status: Ordered fluticasone 50 mcg/inh nasal spray 1 sprays = 50 mcg, Nares, Both, Daily, PRN Nasal Congestion, as needed, # 16 Gm, 3 Refills, Maintenance, 06/06/22 13:18:00 EDT, Nasal [place], [facility] # 20, 1 sprays Nares, Both [...] each, 2 Refills, Maintenance, 02/04/22 16:26:00 EST, [facility] # 20, 159, cm, 02/04/22 14:02:00 EST, Height, 59.2, kg, 10/26/21 15:18:00 EDT, Dry Weight Start Date: 02/04/22 Status: Ordered predniSONE 20 mg oral tablet 1 tablet = 20 mg, By Mouth, 2 times a day, for 5 days, # 10 tablet, 0 Refills, Acute 04/25/23 14:51:00 EDT, 07/14/22 14:51:00 EDT, Tablet, [facility] # 20, Partial fill upon patient request if the prescription is for a schedule II opioid drug., 15... Start Date: 07/14/22 Stop Date: 07/19/22 Status: Ordered sertraline 100 mg oral tablet 1.5 tablet = 150 mg, By Mouth, Daily, # 45 tablet, 4 Refills, Maintenance, 05/04/22 14:38:00 EST, Tablet, [facility] # 20, 159, cm, 02/04/22 14:02:00 EST, Height, 59.2, kg, 10/26/21 15:18:00 EDT,Dry Weight Start Date: 05/04/22 Stop Date: 10/01/22 Status: Ordered sucralfate 1 gm oral tablet 1, tablet, By Mouth, 3 times a day before meals, ON AN ON AN EMPTY STOMACH., # 90 tablet, Refills 2, Tot. Refills 2, Maintenance, 07/11/22 20:08:00 EDT, [facility] to Pharm[facility]ically, [id number], 158, cm, 06/22/22 10:29:00 EDT, [place]... Start Date: 07/11/22 Status: Ordered SUMAtriptan 50 mg oral tablet See Instructions, take a half at onset of headache, may repeat other half 2 hours later once, 0 Refills, Maintenance, 02/04/22 15:02:00 EST, Partial fill upon patient request if the prescription is for a schedule II opioid drug. Start Date: 02/04/22 Status: Ordered Tessalon Perles 100 mg oral capsule 1 capsule = 100 mg, By Mouth, 3 times a day, PRN as needed for cough, for 7 days, # 21 capsule, 0 Refills, Acute 07/21/22 14:50:00 EDT, 07/14/22 14:50:00 EDT, Capsule, [facility] # [facility], Partial fill upon patient request if the prescription is for a... Start Date: 07/14/22 Stop Date: 07/21/22 Status: Ordered Viactiv Soft Calcium Chews Calcium [...] dyskinesia Confirmed Active Ulcerative colitis Confirmed Active Results Radiology Reports * Exam Date Time Procedure Performing Provider Status 07/14/22 1:02 PM Chest 2 Views Frontal and Lat Myriam Chaudhary (Verified) Notes: (Chest 2 Views Frontal and Lat) Reason For Exam: Chest Pain;Other: RESULT: Chest 2 Views Frontal and Lat Chest 2 Views Frontal and Lat Hx of Present Illness: Shortness of breath COMPARISON: 06/22/2022 FINDINGS: LINES AND TUBES: None. LUNGS AND PLEURA: Clear lungs. Normal pulmonary vascularity. No pleural effusion. No pneumothorax. HEART, MEDIASTINUM AND ABI: Heart is normal in size. Normal mediastinal and hilar contour. BONES AND SOFT TISSUES: No acute abnormality. IMPRESSION: No acute abnormality. WSN: [id number] Ordering Physician: Bentley Colon Dictated By: Diomedes Whelan MD Dictated Date/Time: 07/14/22 1:07 pm Reviewed By: Diomedes Whelan MD Signed By: Diomedes Whelan MD Signed Date/Time: 07/14/22 1:07 pm Transcribed By: FORD Transcribed Date/Time: 07/14/22 1:07 pm Vital Signs Most recent to oldest [Reference Range]: 1 2 3 Height 158 cm (07/14/22 3:22 PM) 158 cm (07/14/22 12:33 PM) Weight 63.8 kg (07/14/22:22 PM) 63.8 kg (07/14/22:33 PM) Oxygen Saturation [94-100 %] 95 % (07/14/22:22 PM) 96 % (07/14/22:33 PM) 96 % (07/14/22:22 PM) Pulse Rate [55-90 bpm] 70 bpm (07/14/22 3:22 PM) 80 bpm (07/14/22 12:33 PM) 109 bpm *H* (07/14/22: PM) Body Mass Index [18.5-24.99 kg/m2] 25.56 kg/m2 *H* (07/14/22 3:22 PM) Blood Pressure [90-138/55-84 mm Hg] 101/65mm Hg (07/14/22 3:22 PM) 101/81mm Hg (07/14/22 12:33 PM) Respiratory Rate [16-30 br/min] 16 br/min (07/14/22 3:22 PM) 16 br/min (07/14/22 12:33 PM) 26 br/min (07/14/22 12:22 PM) Temperature [96.8-100.4 DegF] 97.7 DegF (07/14/22 12:33 PM) Mode of Delivery (Oxygen) Room air (07/14/22 3:22 PM) Room air (07/14/22 12:33 PM) Room air (07/14/22 12:22 PM) Blood pressure sites Arm, left (07/14/22 3:22 PM) Temperature Route Oral (07/14/22 12:33 PM) Dry Weight 63.8 kg (07/14/22 3:22 PM) 63.8 kg (07/14/22 12:33 PM) Weight Obtained Via Standing scale (07/14/22 12:33 PM) Dry Weight Obtained Via Standing scale (07/14/22 12:33 PM) Social History Social History Type Response Smoking Status Never smoker entered on: 04/16/14 Sex Note * Jade Alfonso: PERFORM Event Display: Patient Education Leaflets Authored Date: [id number] Bronchitis, No Antibiotics (Adult) ?? [id number] Bronchitis, No Antibiotics (Adult) Bronchitis is inflammation and swelling of the air passages (bronchial tubes) in your lungs. This is often caused by an infection. Your bronchitis was caused by a virus.??Symptoms include a dry, hacking cough that is worse at night. The cough may bring up yellow-green mucus. You may also feel shortof breath or wheeze. Other symptoms may include tiredness, chest discomfort, fever, and chills. This illness can be spread to other people in the first few days. It is spread through the air by coughing and sneezing. It is also spread by direct contact. This means touching the sick person and then touching your own eyes, nose, or mouth. Bronchitis that is caused by a virus is often not treated with antibiotic medicine. Instead, medicines may be given to help relieve symptoms. Symptoms can last up to 2 weeks. The cough may last much longer. Home care Follow these guidelines when caring for yourself at home: ??? If your symptoms are severe, rest at home for the first 2 to 3 days. When you go back to your daily tasks, don't let yourself get too tired. ??? Do not smoke. Stay away from secondhand smoke. ??? You may use gjbe-qwo-uxdxohk medicine to control fever or pain. Or use another pain medicine as prescribed.??If you have chronic liver or kidney disease or have ever had a stomach ulcer or bleeding in your stomach or intestines, talk with your healthcare provider before using these medicines. Also talk to your provider if you are taking medicine to prevent blood clots. Aspirin should never be taken by anyone under age 18 who has a virus or fever. It may cause severe liver or brain damage. ??? Your body needs a lot of fluids now. Drink 6 to 8 glasses of fluids per day. This includes water, soft drinks, sports drinks, juices, tea, or soup. Extra fluids will help loosen mucus in your nose and lungs. ??? Your appetite may be low. A light diet is fine. ??? Kwft-oea-zgzsikk cough, cold, and sore-throat medicines will not shorten the andie gth of the illness. But they may help to reduce your symptoms. Don't use decongestants if you have high blood pressure. ?? Follow-up care Follow up with your healthcare provider, or as advised. If you had an X-ray or ECG (electrocardiogram), a specialist will review it. You will be told of any results that may affect your care. Ask your healthcare provider about the pneumococcal vaccines and a yearly flu shot. There are 2 kinds of pneumococcal vaccines. You may need both. You???re at higher risk of lung infection if any of these apply to you: ??? You are age 65 or older ??? You have a chronic lung disease ??? You have condition that affects your immune system ??? You smoke ?? When to get medical care Call your healthcare provider right away if you have any of these: ??? Fever of 100.4??F (38??C) orhigher ??? Coughing up more mucus ??? Facial pain or ear pain ??? Mild weakness, drowsiness, headache, or a stiff neck ?? Call 911 Call 911 if any of these occur: ??? Coughing up blood ??? Weakness, drowsiness, headache, or stiff neck that get worse ??? Trouble breathing, wheezing, or pain with breathing ??? Lips or skin looks blue, purple, or escobedo in color ??? Feeling of doom ?? Last Reviewed Date: 2021 ?? [id number] [employer]. All rights reserved. This information is not intended as a substitute for professional medical care. Always follow your healthcare professional's instructions. ?? * Beatrice , JODY S: DANIELA Whelan MD, Diomedes W: VERIFY Event Display: Result: Authored Date: [id number] Chest 2 Views Frontal and Lat Hx of Present Illness: Shortness of breath COMPARISON: 06/22/2022 FINDINGS: LINES AND TUBES: None. LUNGS AND PLEURA: Clear lungs. Normal pulmonary vascularity. No pleural effusion. No pneumothorax. HEART, MEDIASTINUM AND ABI: Heart is normal in size. Normal mediastinal and hilar contour. BONES AND SOFT TISSUES: No acute abnormality. IMPRESSION: No acute abnormality. WSN: [id number] Ordering Physician: Bentley Colon Dictated By: Diomedes Whelan MD Dictated Date/Time: 07/14/22 1:07 pm Reviewed By: Diomedes Whelan MD Signed By: Diomedes Whelan MD Signed Date/Time: 07/14/22 1:07 pm Transcribed By: FORD Transcribed Date/Time: 07/14/22 1:07 pm Patient Care team information Care Team Personnel Name: Nancy Amaya Position: [facility] RN Member Role: Primary Care Nurse Name: Brigid Abbasi Position: [facility] RN Member Role: Primary Care Nurse Name: Rowan Garner MD Position: [facility] Primary Care Physician Member Role: PCP Address: Address: [address] [place] [id number] Name: Liz Ley RN Position: [facility] SN RN Member Role: Primary Care Nurse Name: Jade Alfonso Position: [facility] Associate Professional Member Role: ED Physician Data Network Architect Address: Address: [address] [place] [address] [place] [address]- Name: Jaspal Jara Position: [facility] ED RN W/OE and Tasks Member Role: Patient Care Provider Name: Jose Candelario MD Position: [facility] ED Medicine MD Member Role: Admitting Physician Address: Address: [address] [place] [address]- [place] [address]- Name: Lilliam Pino Position: [facility] ED [facility] Care Team Related Persons Name: Romel ALONZO Address: home [address] [place] [address] [address] [place], [place] Name: WENDY CHEN Address: home [address] [place], [place] Name: YAMEL CHEN Address: home [address] [place], [place] Name: PEPE LINARES Address: home [address] [place], [place]
--- OUTSIDE RECORDS SUMMARY | 2022-10-07 06:13 | XMS_ITS | Continuity of Care Document ---
Author Name Unknown Organization [facility] [place] Address [address] [place] [address]- Care Team Providers Care Painter Assistant Name Role Phone Rowan Garner MD Primary Care Physician Encounter [facility] Date(s): 08/31/20 - 09/30/20 [facility] [place] [address] [place], [place] [address] Allergies, Adverse Reactions, Alerts Substance Reaction Severity [...] capsule, 11 Refills, Maintenance, 04/29/19 17:44:00 EST, [facility] #[id number], 155, cm, 04/11/19 11:34:00 EST, Height, 56.8, [...] each, 3 Refills, Maintenance, 03/23/20 15:54:00 EST, [facility] #[id number], 155, cm, 03/17/20 13:55:00 EST, Height, 56.9, [...]
--- OUTSIDE RECORDS SUMMARY | 2022-10-07 06:13 | XMS_ITS | Continuity of Care Document ---
Author Name Unknown Organization [facility] [place] Address [address] [place] [address]- Care Team Providers Care Search Marketing Coordinator Name Role Phone Patsy GERARDO, Rowan Leone Primary Care Physician [phone] Encounter [facility] Date(s): 08/18/22 - 09/17/22 [facility] [place] [address] [place] [address]- Attending Physician: Yoly Siddiqi Admitting Physician: Yoly [...] mL, 5 Refills, Maintenance, 04/08/21 17:11:00 EST, [place], [facility] # [facility], Partial fill upon patient [...] 2 Refills, Maintenance, 06/06/22 13:18:00 EDT, Tablet, [facility] # 20, Partial fill upon patient [...] capsule, 11 Refills, Maintenance, 04/29/19 17:44:00 EST, [facility] #[id number], 155, cm, 04/11/19 11:34:00 EST, Height, 56.8, kg, 04/11/19 11:34:00 EST, Dry Weight Start Date: 04/29/19 Status: Ordered diazepam 2 mg oral tablet 4 mg, 2, tablet, By Mouth, 2 times a day, masspat checked, # 120 tablet, Refills 4, Tot. Refills 4,Maintenance, 05/04/22 14:36:00 EST, Route to Pharmacy Electronically, [facility] # [facility], 159, cm,02/04/22 14:02:00 EST, Height, 59.2, kg, 10/26/21 1... Start Date: 05/04/22 Stop Date: 10/01/22 Status: Ordered Euthyrox 25 mcg (0.025 mg) oral tablet See Instructions, TAKE 1 TABLET BY MOUTH DAILY ALTERNATING WITH 1.5 TABLETS EVERY OTHER DAY, # 45 tablet, 2 Refills, Maintenance, 08/28/22 17:47:00 EDT, [facility] # 20, 158, cm, 08/08/22 14:58:00 EDT, Height, 63.8, kg, 07/14/22 15:22:00 EDT, Dry... Start Date: 08/28/22 Status: Ordered fluticasone 50 mcg/inh nasal spray 1 sprays = 50 mcg, Nares, Both, Daily, PRN Nasal Congestion, as needed, # 16 Gm, 3 Refills, Maintenance, 06/06/22 13:18:00 EDT, Nasal [place], [facility] # 20, 1 sprays Nares, [...] Refills, Maintenance, 02/04/22 16:26:00 EST, [facility] # 20, 159, cm, 02/04/22 14:02:00 EST, Height, 59.2, kg, 10/26/21 15:18:00 EDT, Dry Weight Start Date: 02/04/22 Status: Ordered sertraline 100 mg oral tablet 1.5 tablet = 150 mg, By Mouth, Daily, # 45 tablet, 4 Refills, Maintenance, 08/30/22 15:08:00 EDT, Tablet, [facility] # 20, 158, cm, 08/08/22 14:58:00 EDT, Height, 63.8, kg, 07/14/22 15:22:00 EDT,Dry Weight Start Date: 08/30/22 Stop Date: 01/27/23 Status: Ordered sucralfate 1 gm oral tablet 1, tablet, By Mouth, 3 times a day before meals, ON AN ON AN EMPTY STOMACH., # 90 tablet, Refills 2, Tot. Refills 2, Maintenance, 07/11/22 20:08:00 EDT, Route to Pharmacy Electronically, [facility] #[id number], 158, cm, 06/22/22 10:29:00 EDT, [place]... Start [...] Team Personnel Name: Nancy Love [place] Position: [facility] RN Member Role: Primary Care Nurse Name: Brigid Abbasi Position: [facility] RN Member Role: Primary Care Nurse Name: Rowan Garner MD Position: [facility] Physician - Primary Care Member Role: PCP Address: Address: [address] [place] [id number]- Name: Liz Ley RN Position: [facility] RN Member Role: Primary Care Nurse Care Team Related Persons Name: Romel ALONZO Address: home [address] [place] [address] Name: WENDY CHEN Address: home [address] [place], [place] Name: YAMEL CHEN Address: home [address] [place], [place] Name: PEPE LINARES Address: home [address] [place] [address] [address] JESSI FUNEZ [id number]
--- OUTSIDE RECORDS SUMMARY | 2022-10-07 06:13 | XMS_ITS | Continuity of Care Document ---
Author Name Unknown Organization [facility] [place] Address [address] [place] [address]- Care Team Providers Care Director Patient Accounting Name Role Phone Patsy GERARDO, Rowan Leone Primary Care Physician Encounter [facility] Date(s): 10/04/19 - 11/03/19 [facility] [place] [address] [place] [address]- [facility] Allergies, Adverse Reactions, Alerts Substance Reaction Severity [...] tablet, 5 Refills, Maintenance, 07/15/19 16:13:00 EDT, [facility] #[id number], 1 tablet By Mouth Daily,x30 days,PRN:Headache,I... Start [...] capsule, 11 Refills, Maintenance, 04/29/19 17:44:00 EST, [facility] #[id number], 155, cm, 04/11/19 11:34:00 EST, Height, 56.8, kg, 04/11/19 11:34:00 EST, Dry Weight Start Date: 04/29/19 Status: Ordered Folic Acid = 800 mcg, Daily, 0 Refills, Maintenance, 02/13/14 19:02:48 Start Date: 02/13/14 Status: Ordered levothyroxine 0.025 mg oral tablet See Instructions, TAKE 1 TABLET ALTERNATING WITH 1.5 TABLETS BY MOUTH EVERY OTHER DAY, # 45 tablet,5 Refills, Soft Stop, 05/21/19 10:56:00 EST, [facility] #[id number], 155, cm, 05/07/19 13:47:00 EST, Height, 56.9, [...]
--- OUTSIDE RECORDS SUMMARY | 2022-10-07 06:13 | XMS_ITS | Continuity of Care Document ---
Author Name Unknown Organization [facility] Address Unknown Care Team Providers Care Butcher Scullion Name Role Phone Patsy GERARDO, Rowan Leone Primary Care Physician [phone] [facility] [place] [id number] Date(s): 01/14/21 - 02/13/21 [facility] Attending Physician: Yoly Siddiqi Admitting Physician: Yoly Siddiqi Referring Physician: Yoly Siddiqi Allergies, Adverse Reactions, Alerts Substance Reaction Severity [...] Patient Refuses 1Result Comment: GIVEN AT [facility] 2Result Comment: [01/04/2017] [facility] 3Result [...] Refills, Maintenance, 07/21/20 20:30:00 EDT, [facility] # 20, 1 tablet By [...] capsule, 11 Refills, Maintenance, 04/29/19 17:44:00 EST, [facility] #[id number], 155, cm, 04/11/19 11:34:00 EST, Height, 56.8, kg, 04/11/19 11:34:00 EST, Dry Weight Start Date: 04/29/19 Status: Ordered diazepam 2 mg oral tablet 4 mg, 2, tablet, By Mouth, 3 times a day, for 30 days, # 180 tablet, Refills 3, Tot. Refills 3, Acute 06/03/21 10:50:00 EST, 02/03/21 10:50:00 EST, Route to Pharmacy Electronically, [facility] # 20, 155, cm, 02/01/21 17:23:00 EST, Height, 54.5, kg... Start Date: 02/03/21 Stop Date: 06/03/21 Status: Ordered diazepam 2 mg oral tablet 4 mg, 2, tablet, By Mouth, 2 times a day, # 120 tablet, Refills 5, Tot. Refills 5, Maintenance, 01/14/21 12:51:00 EDT, Route to Pharmacy Electronically, [facility] # 20, 155, cm, 11/20/20 [...] each, 3 Refills, Maintenance, 03/23/20 15:54:00 EST, [facility] #[id number], 155, cm, 03/17/20 13:55:00 EST, Height, 56.9, [...]
--- OUTSIDE RECORDS SUMMARY | 2022-10-07 06:13 | XMS_ITS | Continuity of Care Document ---
Author Name Unknown Organization [facility] [place] Address [address] [place] [address]- Care Team Providers Care Tape Recorder Repairer Name Role Phone Patsy GERARDO, Rowan Leone Primary Care Physician Encounter [facility] Date(s): 06/06/22 - 07/06/22 [facility] [place] [address] [place] [address]- Allergies, Adverse Reactions, Alerts Substance Reaction Severity [...] each, 3 Refills, Maintenance, 06/22/22 12:34:00 EDT, [facility] # [facility], Partial fill upon patient [...] 12:37:39 EDT, Aerosol, Route to Pharmacy Electronically, NCPDP_ID-[id number], [facility] [address], Compound Start Date: 10/04/17 Status: Ordered azelastine 137 mcg/inh (0.1%) nasal spray 2 sprays, Nares, Both, Daily, PRN Other Allergies, in each nostril, # 30 mL, 5 Refills, Maintenance, 04/08/21 17:11:00 EST, [place], [facility] # 20, Partial fill upon patient request if the prescription is for a schedule II opioid drug., 2 sprays... Start Date: 04/08/21 Status: Ordered Carafate 1 gm oral tablet 1 Gm, 1, tablet, By Mouth, 3 times a day before meals, on an empty stomach, # 90 tablet, Refills 2,Tot. Refills 2, Maintenance, 05/09/22 10:48:00 EST, Route to Pharmacy Electronically, [facility] #[id number], Duplicate from 03/11/22, 159, cm, 11... Start Date: 05/09/22 Stop Date: 08/07/22 Status: Ordered Centrum Silver Ultra Women's 1 tablet, By Mouth, Daily, 0 Refills, Maintenance, 04/15/14 16:52:38 Start Date: 04/15/14 Status: Ordered cetirizine 10 mg oral tablet 1 tablet = 10 mg, By Mouth, Daily, # 30 tablet, 2 Refills, Maintenance, 06/06/22 13:18:00 EDT, Tablet, [facility] # 20, Partial fill upon [...] capsule, 11 Refills, Maintenance, 04/29/19 17:44:00 EST, [facility] #[id number], 155, cm, 04/11/19 11:34:00 EST, Height, 56.8, kg, 04/11/19 11:34:00 EST, Dry Weight Start Date: 04/29/19 Status: Ordered diazepam 2 mg oral tablet 4 mg, 2, tablet, By Mouth, 2 times a day, masspat checked, # 120 tablet, Refills 4, Tot. Refills 4,Maintenance, 05/04/22 14:36:00 EST, Route to Pharmacy Electronically, [facility] # 20, 159, cm,02/04/22 14:02:00 EST, Height, 59.2, kg, 10/26/21 1... Start Date: 05/04/22 Stop Date: 10/01/22 Status: Ordered Euthyrox 25 mcg (0.025 mg) oral tablet See Instructions, TAKE 1 TABLET BY MOUTH DAILY ALTERNATING WITH 1.5 TABLETS EVERY OTHER DAY, # 45 tablet, 5 Refills, Maintenance, 02/04/22 13:36:00 EST, [facility] # 20, 159, cm, 10/26/21 15:18:00 EDT, Height, 59.2, kg, 10/26/21 15:18:00 EDT, Dry... Start Date: 02/04/22 Status: Ordered fluticasone 50 mcg/inh nasal spray 1 sprays = 50 mcg, Nares, Both, Daily, PRN Nasal Congestion, as needed, # 16 Gm, 3 Refills, Maintenance, 06/06/22 13:18:00 EDT, Nasal [place], [facility] # 20, 1 sprays Nares, Both [...] each, 2 Refills, Maintenance, 02/04/22 16:26:00 EST, [facility] # 20, 159, cm, 02/04/22 14:02:00 EST, Height, 59.2, kg, 10/26/21 15:18:00 EDT, Dry Weight Start Date: 02/04/22 Status: Ordered sertraline 100 mg oral tablet 1.5 tablet = 150 mg, By Mouth, Daily, # 45 tablet, 4 Refills, Maintenance, 05/04/22 14:38:00 EST, Tablet, [facility] # 20, 159, cm, 02/04/22 14:02:00 EST, Height, 59.2, kg, 10/26/21 15:18:00 EDT,Dry Weight Start Date: 05/04/22 Stop Date: 10/01/22 Status: Ordered SUMAtriptan 50 mg oral tablet [...] Care Team Personnel Name: Nancy Amaya Position: [facility] RN Member Role: Primary Care Nurse Name: Brigid Abbasi Position: [facility] RN Member Role: Primary Care Nurse Name: Rowan Garner MD Position: [facility] Primary Care Physician Member Role: PCP Address: Address: [address] [place] [id number] Name: Liz Ley RN Position: [facility] SN RN Member Role: Primary Care Nurse Care Team Related Persons Name: CLINTONRomel Address: [address] [facility] [address] [address] [place], [place] Name: WENDY CHEN Address: home [address], [place] Name: YAMEL CHEN Address: home [address] [place], [place] Name: PEPE LINARES Address: home [address] [facility] [place], [place]
--- OUTSIDE RECORDS SUMMARY | 2022-10-07 06:13 | XMS_ITS | Continuity of Care Document ---
Author Name Unknown Organization [facility] Primary [facility] [place] Address [address] [place] [address]- Care Team Providers Care Transport Corps Officer Name Role Phone Patsy GERARDO, Rowan Leone Primary Care Physician Encounter [facility] Date(s): 06/06/22 - 07/06/22 [facility] [place] [address] [place] [address]- Attending Physician: Yoly Siddiqi Admitting Physician: AdmYoly leary Referring Physician: Admtr, Ar8 Allergies, Adverse Reactions, [...] Given Patient Refuses 1Result Comment: GIVEN AT [facility] 2Result Comment: [01/04/2017] [facility] 3Result Comment: [01/08/2016] [facility] Medications Acetaminophen = 650 mg, Every 6 hours, PRN Pain , Mild, two tablets (325mg) every 6 hours as needed, 0 Refills, Maintenance, 01/29/15 15:51:52 EST Start Date: 01/29/15 Status: Ordered Albuterol (Eqv-ProAir HFA) 90 mcg/inh inhalation aerosol 2 puffs, Inhalation, Every 4 hours, # 1 each, 3 Refills, Maintenance, 06/22/22 12:34:00 EDT, [facility] # [facility], Partial fill upon patient [...] 12:37:39 EDT, Aerosol, Route to Pharmacy Electronically, NCPDP_ID-[id number], [facility] [address] [facility], [place] Start Date: 10/04/17 Status: Ordered azelastine 137 mcg/inh (0.1%) nasal spray 2 sprays, Nares, Both, Daily, PRN Other Allergies, in each nostril, # 30 mL, 5 Refills, Maintenance, 04/08/21 17:11:00 EST, [place], [facility] # [facility], Partial fill upon patient request if the prescription is for a schedule II opioid drug., 2 sprays... Start Date: 04/08/21 Status: Ordered Carafate 1 gm oral tablet 1 Gm, 1, tablet, By Mouth, 3 times a day before meals, on an empty stomach, # 90 tablet, Refills 2,Tot. Refills 2, Maintenance, 05/09/22 10:48:00 EST, Route to Pharmacy Electronically, [facility] #[id number], Duplicate from 12/16/22, 159, cm, 11... Start Date: 05/09/22 Stop [...] capsule, 11 Refills, Maintenance, 04/29/19 17:44:00 EST, [facility] #[id number], 155, cm, 04/11/19 11:34:00 EST, Height, 56.8, [...] 3 Refills, Maintenance, 06/06/22 13:18:00 EDT, Nasal [place], [facility] # [facility], 1 sprays [...] each, 2 Refills, Maintenance, 02/04/22 16:26:00 EST, [facility] # [facility], 159, cm, [...] Care Team Personnel Name: Nancy Amaya Position: [facility] RN Member Role: Primary Care Nurse Name: Brigid Abbasi Position: [facility] RN Member Role: Primary Care Nurse Name: Rowan Garner MD Position: [facility] Primary Care Physician Member Role: PCP Address: Address: [address] [place] [id number] Name: Liz Ley RN Position: [facility] RN Member Role: Primary Care Nurse Care Team Related Persons Name: Romel ALONZO Address: [address] [place], [place] Name: WENDY CHEN Address: home [address] [place], [place] Name: YAMEL CHEN Address: home [address] [place], [place] Name: PEPE LINARES Address: [address] [place] [address]
--- OUTSIDE RECORDS SUMMARY | 2022-10-07 06:13 | XMS_ITS | Continuity of Care Document ---
Author Name Unknown Organization [facility] Address Unknown Care Team Providers Care Lace Tearing Supervisor Name Role Phone Patsy GERARDO, Rowan Leone Primary Care Physician [place] [facility] [place] [id number] Date(s): 12/29/20 - 02/13/21 [facility] Attending Physician: Vicki Torres MD Admitting Physician: Vicki Torres MD Referring Physician: Rowan Garner MD Allergies, Adverse Reactions, [...] tablet, 5 Refills, Maintenance, 07/21/20 20:30:00 EDT, [facility] # [facility], 1 tablet By [...] capsule, 11 Refills, Maintenance, 04/29/19 17:44:00 EST, [facility] #[id number], 155, cm, 04/11/19 11:34:00 EST, Height, 56.8, kg, 04/11/19 11:34:00 EST, Dry Weight Start Date: 04/29/19 Status: Ordered diazepam 2 mg oral tablet 4 mg, 2, tablet, By Mouth, 3 times a day, for 30 days, # 180 tablet, Refills 3, Tot. Refills 3, Acute 06/03/21 10:50:00 EST, 02/03/21 10:50:00 EST, Route to Pharmacy Electronically, [facility] # [facility], 155, cm, 02/01/21 17:23:00 EST, Height, 54.5, kg... Start Date: 02/03/21 Stop Date: 06/03/21 Status: Ordered diazepam 2 mg oral tablet 4 mg, 2, tablet, By Mouth, 2 times a day, # 120 tablet, Refills 5, Tot. Refills 5, Maintenance, 01/14/21 12:51:00 EDT, Route to Pharmacy Electronically, [facility] # [facility], 155, cm, 11/20/20 9:27:00EDT, [...] each, 3 Refills, Maintenance, 03/23/20 15:54:00 EST, [facility] #[id number], 155, cm, 03/17/20 13:55:00 EST, Height, 56.9, [...]
--- OUTSIDE RECORDS SUMMARY | 2022-10-07 06:13 | XMS_ITS | Continuity of Care Document ---
Author Name Unknown Organization [facility] Address [address] [place] [address]- Care Team Providers Care Fire Boss Name Role Phone Patsy GERARDO, Rowan Leone Primary Care Physician [phone] Encounter [facility] Date(s): 06/22/22 - 06/22/[address] [address]- Discharge Disposition: A-D/C Home Attending Physician: Juan Carrion MD Admitting Physician: Juan Carrion MD Referring Physician: Not on Staff, Referring [...] each, 3 Refills, Maintenance, 06/22/22 12:34:00 EDT, [facility] # [facility], Partial fill upon patient [...] 12:37:39 EDT, Aerosol, Route to Pharmacy Electronically, NCPDP_[id number], [facility] [address] [facility] Start Date: 10/04/17 Status: Ordered azelastine 137 mcg/inh (0.1%) nasal spray 2 sprays, Nares, Both, Daily, PRN Other Allergies, in each nostril, # 30 mL, 5 Refills, Maintenance, 04/08/21 17:11:00 EST, [place], [facility] # 20, Partial fill upon patient request if the prescription is for a schedule II opioid drug., 2 sprays... Start Date: 04/08/21 Status: Ordered Carafate 1 gm oral tablet 1 Gm, 1, tablet, By Mouth, 3 times a day before meals, on an empty stomach, # 90 tablet, Refills 2,Tot. Refills 2, Maintenance, 05/09/22 10:48:00 EST, Route to Pharmacy Electronically, [facility] #[id number], Duplicate from 03/11/22, 159, cm, 11... Start Date: 05/09/22 Stop Date: 08/07/22 Status: Ordered Centrum Silver Ultra Women's 1 tablet, By Mouth, Daily, 0 Refills, Maintenance, 04/15/14 16:52:38 Start Date: 04/15/14 Status: Ordered cetirizine 10 mg oral tablet 1 tablet = 10 mg, By Mouth, Daily, # 30 tablet, 2 Refills, Maintenance, 06/06/22 13:18:00 EDT, Tablet, [facility] # 20, Partial fill upon patient [...] capsule, 11 Refills, Maintenance, 04/29/19 17:44:00 EST, [facility] #[id number], 155, cm, 04/11/19 11:34:00 EST, Height, 56.8, kg, 04/11/19 11:34:00 EST, Dry Weight Start Date: 04/29/19 Status: Ordered diazepam 2 mg oral tablet 4 mg, 2, tablet, By Mouth, 2 times a day, masspat checked, # 120 tablet, Refills 4, Tot. Refills 4,Maintenance, 05/04/22 14:36:00 EST, Route to Pharmacy Electronically, [facility] # [facility], 159, cm,02/04/22 14:02:00 EST, Height, 59.2, kg, 10/26/21 1... Start Date: 05/04/22 Stop Date: 10/01/22 Status: Ordered Euthyrox 25 mcg (0.025 mg) oral tablet See Instructions, TAKE 1 TABLET BY MOUTH DAILY ALTERNATING WITH 1.5 TABLETS EVERY OTHER DAY, # 45 tablet, 5 Refills, Maintenance, 02/04/22 13:36:00 EST, [facility] # 20, 159, cm, 10/26/21 15:18:00 EDT, Height, 59.2, kg, 10/26/21 15:18:00 EDT, Dry... Start Date: 02/04/22 Status: Ordered fluticasone 50 mcg/inh nasal spray 1 sprays = 50 mcg, Nares, Both, Daily, PRN Nasal Congestion, as needed, # 16 Gm, 3 Refills, Maintenance, 06/06/22 13:18:00 EDT, Nasal [place], [facility] # 20, 1 sprays Nares, [...] each, 2 Refills, Maintenance, 02/04/22 16:26:00 EST, [facility] # 20, 159, cm, 02/04/22 14:02:00 EST, Height, 59.2, kg, 10/26/21 15:18:00 EDT, Dry Weight Start Date: 02/04/22 Status: Ordered sertraline 100 mg oral tablet 1.5 tablet = 150 mg, By Mouth, Daily, # 45 tablet, 4 Refills, Maintenance, 05/04/22 14:38:00 EST, Tablet, [facility] # 20, 159, cm, 02/04/22 [...] Exam Date Time Procedure Performing Provider Status 06/22/22 11:12 AM Chest 2 Views Frontal and Lat Fullen , Milana; Auth (Verified) Notes: (Chest 2 Views Frontal and Lat) Reason For Exam: Chest Pain;Other: RESULT: Chest 2 Views Frontal and Lat Chest 2 Views Frontal and Lat Hx of Present Illness: C O SOB, increased coughing and chest pressure with coughing.; Reason: Other:; Chest Pain; Clinical Question(s): Other: COMPARISON: 09/28/2017 FINDINGS: LINES AND TUBES: None. LUNGS AND PLEURA: Clear lungs. Normal pulmonary vascularity. No pleural effusion. No pneumothorax. HEART, MEDIASTINUM AND ABI: Heart is normal in size. Normal mediastinal and hilar contour. BONES AND SOFT TISSUES: No acute abnormality. IMPRESSION: No acute abnormality. WSN: [id number] Ordering Physician: Bentley Colon Dictated By: Yazmin Sequeira MD Dictated Date/Time: 06/22/22 11:16 a Reviewed By: Yazmin Sequeira MD Signed By: Yazmin Sequeira MD Signed Date/Time: 06/22/22 11:16 am Transcribed By: FORD Transcribed Date/Time: 06/22/22 11:15 am Vital Signs Most recent to oldest [Reference Range]: 1 2 3 Height 158 cm (06/22/22 10:29 AM) Weight 62.7 kg (06/22/22 10:29 AM) Oxygen Saturation [94-100 %] 98 % (06/22/22 12:45 PM) 98 % (06/22/22 10:29 AM) 96 % (06/22/22 10:19 AM) Pulse Rate [55-90 bpm] 85 bpm (06/22/22 12:45 PM) 72 bpm (06/22/22 10:29 AM) Blood Pressure [90-138/55-84 mm Hg] 125/67mm Hg (06/22/22 12:45 PM) 114/71mm Hg (06/22/22 10:29 AM) Respiratory Rate [16-30 br/min] 18 br/min (06/22/22 12:45 PM) 18 br/min (06/22/22 10:29 AM) Temperature [96.8-100.4 DegF] 97.8 DegF (06/22/22 10:29 AM) Mode of Delivery (Oxygen) Room air (06/22/22 12:45 PM) Room air (06/22/22 10:29 AM) Room air (06/22/22 10:19 AM) Blood pressure sites Arm, left (06/22/22 12:45 PM) Arm, right (06/22/22 10:29 AM) Temperature Route Oral (06/22/22 10:29 AM) Dry Weight 62.7 kg (06/22/22 10:29 AM) Weight Obtained Via Standing scale (06/22/22 10:29 AM) Dry Weight Obtained Via Standing scale (06/22/22 10:29 AM) Social History Social History Type Response Smoking Status Never smoker entered on: 04/16/14 Sex EKG study * Event Display: ECG 12-Lead Authored Date: Please click on pdf link to open report * Event Display: ECG 12-Lead Authored Date: [id number] Ventricular Rate: 78 BPM Atrial Rate: 78 BPM P-R Interval: 140 ms QRS Duration: 76 ms Q-T Interval: 402 ms QTC Calculation(Bazett): 458 ms P [place]: 57 degrees R [place]: 12 degrees T [place]: 13 degrees Normal sinus rhythm Normal ECG When compared with ECG of 11-APR-2019 09:33, No significant change was found Confirmed by SARAH IGNACIO MD ([id number]) on 06/22/2022 8:02:40 PM [place]: SARAH IGNACIO MD Note * Juan Carrion MD: PERFORM Event Display: Patient Education Leaflets Authored Date: [id number] Bronchitis, No Antibiotics (Adult) ?? [id number] Bronchitis, No Antibiotics (Adult) Bronchitis is inflammation [...] from secondhand smoke. ??? You may use eceg-epv-qwbmxjy medicine to control fever or pain. Or [...] low. A light diet is fine. ??? Onpa-nbe-tybwvcr cough, cold, and sore-throat medicines will not [...] doom ?? Last Reviewed Date: 2021 ?? [id number] [employer]. All rights reserved. This information is not intended as a substitute for professional medical care. Always follow your healthcare professional's instructions. ?? * BHSPowerscribe , CIS S: TRANSCRIBE Yazmin Sequeira MD: VERIFY Event Display: Result: Authored Date: [id number] Chest 2 Views Frontal and Lat Hx of Present Illness: C O SOB, increased coughing and chest pressure with coughing.; Reason: Other:; Chest Pain; Clinical Question(s): Other: COMPARISON: 09/28/2017 FINDINGS: LINES AND TUBES: None. LUNGS AND PLEURA: Clear lungs. Normal pulmonary vascularity. No pleural effusion. No pneumothorax. HEART, MEDIASTINUM AND ABI: Heart is normal in size. Normal mediastinal and hilar contour. BONES AND SOFT TISSUES: No acute abnormality. IMPRESSION: No acute abnormality. WSN: [id number] Ordering Physician: Bentley Colon Dictated By: Yazmin Sequeira MD Dictated Date/Time: 06/22/22 11:16 a Reviewed By: Yazmin Sequeira MD Signed By: Yazmin Sequeira MD Signed Date/Time: 06/22/22 11:16 am Transcribed By: FORD Transcribed Date/Time: 06/22/22 11:15 am Patient Care team information Care Team Personnel Name: Nancy Amaya Position: [facility] RN Member Role: Primary Care Nurse Name: Brigid Abbasi Position: [facility] RN Member Role: Primary Care Nurse Name: Rowan Garner MD Position: [facility] Primary Care Physician Member Role: PCP Address: Address: [address] [place] [address]- [place] Name: Liz Ley RN Position: [facility] SN RN Member Role: Primary Care Nurse Name: Bj Tam RN Position: [facility] ED RN W/OE and Tasks Member Role: Patient Care Provider Name: Juan Carrion MD Position: [facility] ED Medicine MD Member Role: Admitting Physician Address: Address: [address] [place] [address] [place] [address]- [place] Name: Elen Allan Position: [facility] ED TA [facility] Member Role: Knowledge Engineer Care Team Related Persons Name: Romel ALONZO Address: home [address] [place] [address] [address] [place], [place] Name: WENDY CHEN Address: home [address] [place], [place] Name: YAMEL CHEN Address: home [address] [place], [place] Name: JUAN LINARES Address: home [address] [place] [address] [address] [place], [place]
--- OUTSIDE RECORDS SUMMARY | 2022-10-07 06:14 | XMS_ITS | Continuity of Care Document ---
Author Name Unknown Organization [facility] Address [address] [place] [address]- Care Team Providers Care Resistor Coater Name Role Phone Patsy GERARDO, Rowan Leone Primary Care Physician [phone] Encounter [facility] Date(s): 07/14/22 - 08/13/22 [facility] [address] [place], [place] [address] Allergies, Adverse Reactions, Alerts Substance Reaction [...] Given Patient Refuses 1Result Comment: GIVEN AT [facility] 2Result Comment: [01/04/2017] [facility] 3Result Comment: [01/08/2016] [facility] Medications Acetaminophen = 650 mg, Every 6 hours, PRN Pain , Mild, two tablets (325mg) every 6 hours as needed, 0 Refills, Maintenance, 01/29/15 15:51:52 EST Start Date: 01/29/15 Status: Ordered albuterol CFC free 90 mcg/inh inhalation aerosol 2, puffs, Inhalation, 4 times a day, PRN, # 1 each, Refills 0, Tot. Refills 0, Acute 08/20/22 15:15:00 EDT, 07/14/22 15:15:00 EDT, Aerosol, Route to Pharmacy Electronically, [id number], [facility], 158, cm, 07/14/22... Start Date: 07/14/22 Stop Date: 08/20/22 Status: Ordered azelastine 137 mcg/inh (0.1%) nasal spray 2 sprays, Nares, Both, Daily, PRN Other Allergies, in each nostril, # 30 mL, 5 Refills, Maintenance, 04/08/21 17:11:00 EST, [place], [facility] # 20, Partial fill upon [...] 2 Refills, Maintenance, 06/06/22 13:18:00 EDT, Tablet, [facility] # 20, Partial fill upon [...] capsule, 11 Refills, Maintenance, 04/29/19 17:44:00 EST, [facility] #[id number], 155, cm, 04/11/19 11:34:00 EST, Height, 56.8, kg, 04/11/19 11:34:00 EST, Dry Weight Start Date: 04/29/19 Status: Ordered diazepam 2 mg oral tablet 4 mg, 2, tablet, By Mouth, 2 times a day, masspat checked, # 120 tablet, Refills 4, Tot. Refills 4,Maintenance, 05/04/22 14:36:00 EST, Route to Pharmacy Electronically, [facility], 159, cm,02/04/22 14:02:00 EST, Height, 59.2, kg, 10/26/21 1... Start Date: 05/04/22 Stop Date: 10/01/22 Status: Ordered Euthyrox 25 mcg (0.025 mg) oral tablet See Instructions, TAKE 1 TABLET BY MOUTH DAILY ALTERNATING WITH 1.5 TABLETS EVERY OTHER DAY, # 45 tablet, 5 Refills, Maintenance, 02/04/22 13:36:00 EST, [facility] # 20, 159, cm, 10/26/21 15:18:00 EDT, Height, 59.2, kg, 10/26/21 15:18:00 EDT, Dry... Start Date: 02/04/22 Status: Ordered fluticasone 50 mcg/inh nasal spray 1 sprays = 50 mcg, Nares, Both, Daily, PRN Nasal Congestion, as needed, # 16 Gm, 3 Refills, Maintenance, 06/06/22 13:18:00 EDT, Nasal [place], [facility] # 20, 1 sprays Nares, [...] each, 2 Refills, Maintenance, 02/04/22 16:26:00 EST, [facility] # 20, 159, cm, 02/04/22 14:02:00 EST, Height, 59.2, kg, 10/26/21 15:18:00 EDT, Dry Weight Start Date: 02/04/22 Status: Ordered sertraline 100 mg oral tablet 1.5 tablet = 150 mg, By Mouth, Daily, # 45 tablet, 4 Refills, Maintenance, 05/04/22 14:38:00 EST, Tablet, [facility] # 20, 159, cm, 02/04/22 14:02:00 EST, Height, 59.2, kg, 10/26/21 15:18:00 EDT,Dry Weight Start Date: 05/04/22 Stop Date: 10/01/22 Status: Ordered sucralfate 1 gm oral tablet 1, tablet, By Mouth, 3 times a day before meals, ON AN ON AN EMPTY STOMACH., # 90 tablet, Refills 2, Tot. Refills 2, Maintenance, 07/11/22 20:08:00 EDT, Route to Pharmacy Electronically, [facility] #[id number], 158, cm, 06/22/22 10:29:00 EDT, [place]... Start [...] Care Team Personnel Name: Nancy Amaya Position: [facility] RN Member Role: Primary Care Nurse Name: Brigid Abbasi Position: [facility] RN Member Role: Primary Care Nurse Name: Rowan Garner MD Position: [facility] Primary Care Physician Member Role: PCP Address: Address: [address] [place] [address]- Name: Liz Ley RN Position: [facility] SN RN Member Role: Primary Care Nurse Care Team Related Persons Name: Romel ALONZO Address: [address] [place], [place] Name: WENDY CHEN Address: home [address] [place], [place] Name: YAMEL CHEN Address: home [address] [place], [place] Name: PEPE LINARES Address: [address] [place], [place]
--- OUTSIDE RECORDS SUMMARY | 2022-10-07 06:14 | XMS_ITS | Continuity of Care Document ---
Author Name Unknown Organization [facility] [place] Address [address] [place] [address]- Care Team Providers Care Ear Specialist Name Role Phone Patsy GERARDO, Rowan Leone Primary Care Physician Encounter [facility] [id number] Date(s): 09/25/19 - 11/06/[address] [address]- [facility] Attending Physician: Troy Guerrero MD Allergies, Adverse Reactions, Alerts Substance Reaction Severity Status aspirin Active sulfa drugs Rash Active Dipentum Active Bactrim Active nonsteroidal anti-inflammatory agents Active Latex Unknown Active voriconazole Active Abilify Active Soy Products Active Lactose Active NSAIDs Active atorvastatin abd pain Active Immunizations Given and Recorded Vaccine Date [...] tablet, 5 Refills, Maintenance, 07/15/19 16:13:00 EDT, [facility] #[id number], 1 tablet By Mouth Daily,x30 days,PRN:Headache,I... Start [...] capsule, 11 Refills, Maintenance, 04/29/19 17:44:00 EST, [facility] #[id number], 155, cm, 04/11/19 11:34:00 EST, Height, 56.8, kg, 04/11/19 11:34:00 EST, Dry Weight Start Date: 04/29/19 Status: Ordered Folic Acid = 800 mcg, Daily, 0 Refills, Maintenance, 02/13/14 19:02:48 Start Date: 02/13/14 Status: Ordered levothyroxine 0.025 mg oral tablet See Instructions, TAKE 1 TABLET ALTERNATING WITH 1.5 TABLETS BY MOUTH EVERY OTHER DAY, # 45 tablet,5 Refills, Soft Stop, 05/21/19 10:56:00 EST, [facility] #[id number], 155, cm, 05/07/19 13:47:00 EST, Height, 56.9, [...]
--- OUTSIDE RECORDS SUMMARY | 2022-10-07 06:14 | XMS_ITS | Continuity of Care Document ---
Author Name Unknown Organization [facility] Address [address] [place] [address]- Care Team Providers Care Licensed Physical Therapist Name Role Phone Patsy GERARDO, Rowan Leone Primary Care Physician Encounter [facility] Date(s): 03/09/22 - 04/08/22 [facility] [address] [place] [address]- Allergies, Adverse Reactions, Alerts Substance Reaction Severity [...] Given Patient Refuses 1Result Comment: GIVEN AT [facility] 2Result Comment: [01/04/2017] [facility] 3Result [...] 12:37:39 EDT, Aerosol, Route to Pharmacy Electronically, NHPDP_[id number], [facility] [address], [place] Start Date: 10/04/17 Status: Ordered azelastine 137 mcg/inh (0.1%) nasal spray 2 sprays, Nares, Both, Daily, PRN Other Allergies, in each nostril, # 30 mL, 5 Refills, Maintenance, 04/08/21 17:11:00 EST, [place], [facility] # [facility], Partial fill upon patient request if the prescription is for a schedule II opioid drug., 2 sprays... Start Date: 04/08/21 Status: Ordered Carafate 1 gm oral tablet 1 Gm, 1, tablet, By Mouth, 3 times a day before meals, on an empty stomach, # 90 tablet, Refills 3,Tot. Refills 3, Maintenance, 03/11/22 0:27:00 EST, Route to Pharmacy Electronically, [facility], 159, cm, 02/04/22 14:02:00 EST, Height, 59.2,... Start Date: 03/11/22 Stop Date: 07/09/22 Status: Ordered Centrum Silver Ultra Women's 1 tablet, By Mouth, Daily, 0 Refills, Maintenance, 04/15/14 16:52:38 Start Date: 04/15/14 Status: Ordered cetirizine 10 mg oral tablet 1 tablet = 10 mg, By Mouth, Daily, # 30 tablet, 0 Refills, Maintenance, 03/22/21 12:39:00 EST, Tablet, [facility] # [facility], Partial fill upon patient request if the prescription is for a schedule II opioid drug., 155, cm, 02/24/21 12:58:00 EST, Height... Start Date: 03/22/21 Status: Ordered cranberry oral capsule 1 capsule, By Mouth, Daily, 0 Refills, Maintenance, 10/05/18 15:17:53 EDT Start Date: 10/05/18 Status: Ordered Delzicol 400 mg oral delayed release capsule 2 capsule = 800 mg, By Mouth, 3 times a day, # 180 capsule, 11 Refills, Maintenance, 04/29/19 17:44:00 EST, [facility] #[id number], 155, cm, 04/11/19 11:34:00 EST, Height, 56.8, kg, 04/11/19 11:34:00 EST, Dry Weight Start Date: 04/29/19 Status: Ordered diazepam 2 mg oral tablet 4 mg, 2, tablet, By Mouth, 2 times a day, masspat checked, # 120 tablet, Refills 4, Tot. Refills 4,Maintenance, 12/29/21 14:43:00 EDT, Route to Pharmacy Electronically, [facility] # [facility], 159, cm,10/26/21 15:18:00 EDT, Height, 59.2, kg, 10/26/21 1... Start Date: 12/29/21 Stop Date: 05/28/22 Status: Ordered Euthyrox 25 mcg (0.025 mg) oral tablet See Instructions, TAKE 1 TABLET BY MOUTH DAILY ALTERNATING WITH 1.5 TABLETS EVERY OTHER DAY, # 45 tablet, 5 Refills, Maintenance, 02/04/22 13:36:00 EST, [facility] # [facility], 159, cm, 10/26/21 15:18:00 EDT, Height, 59.2, kg, 10/26/21 15:18:00 EDT, Dry... Start Date: 02/04/22 Status: Ordered fluticasone 50 mcg/inh nasal spray 1 sprays = 50 mcg, Nares, Both, Daily, PRN Nasal Congestion, as needed, # 16 Gm, 0 Refills, Maintenance, 10/04/19 16:12:00 EDT, Nasal [place], [facility] #[id number], 1 sprays Nares, Both Daily,PRN:Nasal Congestion,Instr:as needed, 155, cm, 02/11/2... Start Date: 10/04/19 Status: Ordered Folic Acid = 800 mcg, [...] each, 2 Refills, Maintenance, 02/04/22 16:26:00 EST, [facility] # [facility], 159, cm, 02/04/22 14:02:00 EST, Height, 59.2, kg, 10/26/21 15:18:00 EDT, Dry Weight Start Date: 02/04/22 Status: Ordered sertraline 100 mg oral tablet 1.5 tablet = 150 mg, By Mouth, Daily, # 45 tablet, 4 Refills, Maintenance, 12/29/21 14:42:00 EDT, Tablet, [facility] # 20, 159, cm, 10/26/21 15:18:00 EDT, Height, 59.2, kg, 10/26/21 15:18:00 EDT,Dry Weight Start Date: 12/29/21 Stop Date: 05/28/22 Status: Ordered SUMAtriptan 50 mg oral tablet [...] Care Team Personnel Name: Nancy Amaya Position: [facility] RN Member Role: Primary Care Nurse Name: Brigid Abbasi Position: [facility] RN Member Role: Primary Care Nurse Name: Rowan Garner MD Position: [facility] Primary Care Physician Member Role: PCP Address: Address: [address] [place] [address]- Name: Liz Ley RN Position: [facility] RN Member Role: Primary Care Nurse Care Team Related Persons Name: Romel ALONZO Address: [address] [address] Name: WENDY CHEN Address: home [address] [facility] [address] Name: YAMEL CHEN Address: home [address] [place] [address] Name: PEPE LINARES Address: home [address] [facility] [address] [place] [place] [address]
--- OUTSIDE RECORDS SUMMARY | 2022-10-07 06:14 | XMS_ITS | Continuity of Care Document ---
Author Name Unknown Organization [facility] Address [address] [place] [address]- Care Team Providers Care Boy'S Adviser Name Role Phone Rowan Garner MD Primary Care Physician [phone] Encounter [facility] Date(s): 11/25/20 - 12/25/20 [facility] [address] [place], [place] [address] Allergies, Adverse Reactions, Alerts Substance Reaction [...] Refills, Maintenance, 07/21/20 20:30:00 EDT, [facility] # [facility], 1 [...] capsule, 11 Refills, Maintenance, 04/29/19 17:44:00 EST, [facility] #[id number], 155, cm, 04/11/19 11:34:00 EST, Height, 56.8, kg, 04/11/19 11:34:00 EST, Dry Weight Start Date: 04/29/19 Status: Ordered diazepam 2 mg oral tablet 4 mg, 2, tablet, By Mouth, 2 times a day, # 120 tablet, Refills 4, Tot. Refills 4, Maintenance, 07/21/20 20:35:00 EDT, Route to Pharmacy Electronically, [facility] # [facility], 155, cm, 07/02/20 [...] each, 3 Refills, Maintenance, 03/23/20 15:54:00 EST, [facility] #[id number], 155, cm, 03/17/20 13:55:00 EST, Height, 56.9, [...]
--- OUTSIDE RECORDS SUMMARY | 2022-10-07 06:14 | XMS_ITS | Continuity of Care Document ---
Author Name Unknown Organization [facility] [place] Address [address] [place] [address]- Care Team Providers Care Assistant Professor Of Physics Name Role Phone Patsy GERARDO, Rowan Leone Primary Care Physician [phone] Encounter [facility] Date(s): 09/29/21 - 10/29/21 [facility] [address] [place] [address]- Attending Physician: Yoly Siddiqi Admitting Physician: AdmYoly leary Referring Physician: AdmtrYoly Allergies, Adverse Reactions, Alerts Substance Reaction Severity Status aspirin Active atorvastatin abd pain Active sulfa drugs Rash Active Dipentum Active Bactrim Active nonsteroidal anti-inflammatory agents Active voriconazole Active Abilify Active Lactose Active NSAIDs Active Latex Unknown Active Soy [...] Given Patient Refuses 1Result Comment: GIVEN AT [facility] 2Result Comment: [01/04/2017] [facility] [...] tablet, 0 Refills, Maintenance, 07/28/21 10:04:00 EDT, [facility] # 20, As needed for severe headache. no... Start Date: 07/28/21 Status: Ordered azelastine 137 mcg/inh (0.1%) nasal spray 2 sprays, Nares, Both, Daily, PRN Other Allergies, in each nostril, # 30 mL, 5 Refills, Maintenance, 04/08/21 17:11:00 EST, [place], [facility] # 20, Partial fill upon patient [...] capsule, 11 Refills, Maintenance, 04/29/19 17:44:00 EST, [facility] #[id number], 155, cm, 04/11/19 11:34:00 EST, Height, 56.8, [...] each, 3 Refills, Maintenance, 03/23/20 15:54:00 EST, [facility] #[id number], 155, cm, 03/17/20 13:55:00 EST, Height, 56.9, [...]
--- OUTSIDE RECORDS SUMMARY | 2022-10-07 06:14 | XMS_ITS | Continuity of Care Document ---
Author Name Unknown Organization [facility] Address [address] [place] [address]- Care Team Providers Care Ocean Export Agent Name Role Phone Patsy GERARDO, Rowan Leone Primary Care Physician Encounter [facility] Date(s): 05/14/21 - 07/18/[address] [address]- Encounter Diagnosis Other low back pain(Final) - Discharge Disposition: A-D/C Home Attending Physician: Stuart Han MD Admitting Physician: Stuart Han MD Referring Physician: Stuart Han MD Allergies, Adverse Reactions, Alerts Substance Reaction [...] tablet, 5 Refills, Maintenance, 07/21/20 20:30:00 EDT, [facility] # 20, 1 tablet By Mouth Daily,x30 days,PRN:Headache,Instr:no... Start Date: 07/21/20 Stop Date: 01/17/21 Status: Ordered azelastine 137 mcg/inh (0.1%) nasal spray 2 sprays, Nares, Both, Daily, PRN Other Allergies, in each nostril, # 30 mL, 5 Refills, Maintenance, 04/08/21 17:11:00 EST, [place], [facility] # 20, Partial fill [...] capsule, 11 Refills, Maintenance, 04/29/19 17:44:00 EST, [facility] #[id number], 155, cm, 04/11/19 11:34:00 EST, Height, 56.8, [...] each, 3 Refills, Maintenance, 03/23/20 15:54:00 EST, [facility] #[id number], 155, cm, 03/17/20 13:55:00 EST, Height, 56.9, [...]
--- OUTSIDE RECORDS SUMMARY | 2022-10-07 06:14 | XMS_ITS | Continuity of Care Document ---
Author Name Unknown Organization [facility] Primary [facility] [place] Address [address] [place] [address]- Care Team Providers Care Arts Education Teacher Name Role Phone Patsy GERARDO, Rowan Leone Primary Care Physician [phone] Encounter [facility] Date(s): 06/13/19 - 06/23/19 [facility] [place] [address] [place] [address]- [facility] Attending Physician: Yoly Siddiqi Admitting Physician: AdmYoly [...] capsule, 11 Refills, Maintenance, 04/29/19 17:44:00 EST, [facility] #[id number], 155, cm, 04/11/19 11:34:00 EST, Height, 56.8, kg, 04/11/19 11:34:00 EST, Dry Weight Start Date: 04/29/19 Status: Ordered diazepam 2 mg oral tablet See Instructions, Take 1 tab in AM, and 2 in PM., # 90 tablet, Refills 5, Tot. Refills 5, Maintenance, 02/25/19 12:37:52 EST, Instructions Replace Required Details, [facility] to [facility]ically[id number] [address] [facility] Start Date: 02/25/19 Status: Ordered fluticasone 50 mcg/inh nasal spray 1 sprays, Nares, Both, Daily, PRN Nasal Congestion, # 16 Gm, 0 Refills, Maintenance, 10/22/14 17:35:07 EDT, [place] Start Date: 10/22/14 Status: Ordered Folic Acid = 800 mcg, Daily, 0 Refills, Maintenance, 02/13/14 19:02:48 Start Date: 02/13/14 Status: Ordered levothyroxine 0.025 mg oral tablet See Instructions, TAKE 1 TABLET ALTERNATING WITH 1.5 TABLETS BY MOUTH EVERY OTHER DAY, # 45 tablet,5 Refills, Soft Stop, 05/21/19 10:56:00 EST, [facility] #[id number], 155, cm, 05/07/19 13:47:00 EST, Height, 56.9, [...]
--- OUTSIDE RECORDS SUMMARY | 2022-10-07 06:14 | XMS_ITS | Continuity of Care Document ---
Author Name Unknown Organization [facility] [place] Address [address] [place] [address]- Care Team Providers Care Steel Handler Name Role Phone Rowan Garner MD Primary Care Physician Encounter [facility] Date(s): 11/05/19 - 12/05/19 [facility] [place] [address] [place] [address]- [facility] Allergies, Adverse Reactions, Alerts Substance Reaction Severity [...] tablet, 5 Refills, Maintenance, 04/20/20 16:13:00 EDT, [facility] #[id number], 1 tablet By Mouth Daily,x30 days,PRN:Headache,I... Start [...] capsule, 11 Refills, Maintenance, 04/29/19 17:44:00 EST, [facility] #[id number], 155, cm, 04/11/19 11:34:00 EST, Height, 56.8, kg, 04/11/19 11:34:00 EST, Dry Weight Start Date: 04/29/19 Status: Ordered Folic Acid = 800 mcg, Daily, 0 Refills, Maintenance, 02/13/14 19:02:48 Start Date: 02/13/14 Status: Ordered levothyroxine 0.025 mg oral tablet See Instructions, TAKE 1 TABLET ALTERNATING WITH 1.5 TABLETS BY MOUTH EVERY OTHER DAY, # 45 tablet,5 Refills, Soft Stop, 05/21/19 10:56:00 EST, [facility] #[id number], 155, cm, 05/07/19 13:47:00 EST, Height, 56.9, [...]
--- OUTSIDE RECORDS SUMMARY | 2022-10-07 06:14 | XMS_ITS | Continuity of Care Document ---
Author Name Unknown Organization [facility] Address Unknown Care Team Providers Care Drill Press Operator Helper Name Role Phone Patsy GERARDO, Rowan Leone Primary Care Physician Encounter [facility] Date(s): 02/03/21 - 03/05/21 [facility] Allergies, Adverse Reactions, Alerts Substance Reaction Severity [...] Given Patient Refuses 1Result Comment: GIVEN AT [facility] 2Result Comment: [01/04/2017] [facility] 3Result [...] tablet, 5 Refills, Maintenance, 07/21/20 20:30:00 EDT, [facility] # 20, 1 tablet By Mouth [...] capsule, 11 Refills, Maintenance, 04/29/19 17:44:00 EST, [facility] #[id number], 155, cm, 04/11/19 11:34:00 EST, Height, 56.8, kg, 04/11/19 11:34:00 EST, Dry Weight Start Date: 04/29/19 Status: Ordered diazepam 2 mg oral tablet 4 mg, 2, tablet, By Mouth, 3 times a day, for 30 days, # 180 tablet, Refills 3, Tot. Refills 3, Acute 06/03/21 10:50:00 EST, 02/03/21 10:50:00 EST, Route to Pharmacy Electronically, [facility] # [facility], 155, cm, 02/01/21 17:23:00 EST, Height, 54.5, kg... Start Date: 02/03/21 Stop Date: 06/03/21 Status: Ordered diazepam 2 mg oral tablet 4 mg, 2, tablet, By Mouth, 2 times a day, # 120 tablet, Refills 5, Tot. Refills 5, Maintenance, 01/14/21 12:51:00 EDT, Route to Pharmacy Electronically, [facility] # 20, 155, cm, 11/20/20 9:27:00EDT, [...] each, 3 Refills, Maintenance, 03/23/20 15:54:00 EST, [facility] #[id number], 155, cm, 03/17/20 13:55:00 EST, Height, 56.9, [...]
--- OUTSIDE RECORDS SUMMARY | 2022-10-07 06:14 | XMS_ITS | Continuity of Care Document ---
Author Name Unknown Organization [facility] [place] Address [address] [place] [address]- Care Team Providers Care Unemployment Examiner Name Role Phone Patsy GERARDO, Rowan Leone Primary Care Physician [phone] Encounter [facility] Date(s): 06/21/21 - 07/21/21 [facility] [place] [address] [place] [address]- Allergies, Adverse Reactions, Alerts Substance Reaction Severity [...] mL, 5 Refills, Maintenance, 04/08/21 17:11:00 EST, [place], [facility] # [facility], Partial fill [...] capsule, 11 Refills, Maintenance, 04/29/19 17:44:00 EST, [facility] #[id number], 155, cm, 04/11/19 11:34:00 EST, Height, 56.8, [...] each, 3 Refills, Maintenance, 03/23/20 15:54:00 EST, [facility] #[id number], 155, cm, 03/17/20 13:55:00 EST, Height, 56.9, [...]
--- OUTSIDE RECORDS SUMMARY | 2022-10-07 06:14 | XMS_ITS | Continuity of Care Document ---
Author Name Unknown Organization [facility] [place] Address [address] [place] [address]- Care Team Providers Care Machine Worker Name Role Phone Patsy GERARDO, Rowan Leone Primary Care Physician En[facility] Date(s): 08/05/19 - 09/04/19 [facility] [place] [address] [place] [address]- [facility] Attending Physician: Yoly Siddiqi Admitting Physician: Yoly [...] tablet, 5 Refills, Maintenance, 07/15/19 16:13:00 EDT, [facility] #[id number], 1 tablet By Mouth Daily,x30 days,PRN:Headache,I... Start [...] capsule, 11 Refills, Maintenance, 04/29/19 17:44:00 EST, [facility] #02683, 155, cm, 04/11/19 11:34:00 EST, Height, 56.8, kg, 04/11/19 11:34:00 EST, Dry Weight Start Date: 04/29/19 Status: Ordered diazepam 2 mg oral tablet See Instructions, Take 1 tab in AM, and 2 in PM., # 90 tablet, Refills 5, Tot. Refills 5, Maintenance, 07/15/19 16:16:00 EDT, Instructions Replace Required Details, Route to Pharmacy Electronically, [facility] #[id number], 155, cm, 05/07/19 13:47... Start Date: 07/15/19 Status: Ordered fluticasone 50 mcg/inh nasal spray 1 sprays, Nares, Both, Daily, PRN Nasal Congestion, # 16 Gm, 0 Refills, Maintenance, 10/22/14 17:35:07 EDT, [place] Start Date: 10/22/14 Status: Ordered Folic Acid = 800 mcg, Daily, 0 Refills, Maintenance, 02/13/14 19:02:48 Start Date: 02/13/14 Status: Ordered levothyroxine 0.025 mg oral tablet See Instructions, TAKE 1 TABLET ALTERNATING WITH 1.5 TABLETS BY MOUTH EVERY OTHER DAY, # 45 tablet,5 Refills, Soft Stop, 05/21/19 10:56:00 EST, [facility] #[id number], 155, cm, 05/07/19 13:47:00 EST, Height, 56.9, [...]
--- OUTSIDE RECORDS SUMMARY | 2022-10-07 06:14 | XMS_ITS | Continuity of Care Document ---
Author Name Unknown Organization [facility] Address Unknown Care Team Providers Care Metal Fabricator Helper Name Role Phone Patsy GERARDO, Rowan Leone Primary Care Physician [phone] Encounter [facility] Date(s): 12/28/20 - 01/27/21 [facility] Allergies, Adverse Reactions, Alerts Substance Reaction [...] capsule, 11 Refills, Maintenance, 04/29/19 17:44:00 EST, [facility] #[id number], 155, cm, 04/11/19 11:34:00 EST, Height, 56.8, [...] each, 3 Refills, Maintenance, 03/23/20 15:54:00 EST, [facility] #[id number], 155, cm, 03/17/20 13:55:00 EST, Height, 56.9, [...]
--- OUTSIDE RECORDS SUMMARY | 2022-10-07 06:14 | XMS_ITS | Continuity of Care Document ---
Author Name [facility] Address [address] [place] [address]- Care Team Providers Care Passport Application Examiner Name Role Phone Rowan Garner MD Primary Care Physician [phone] Encounter [facility] Date(s): 06/12/20 - 06/12/[address] [address]- Discharge Disposition: A-D/C Home Attending Physician: Jason Correa MD Admitting Physician: Jason Correa MD Referring Physician: Not on Staff, Referring [...] Given Patient Refuses 1Result Comment: GIVEN AT [facility] 2Result Comment: [01/04/2017] [facility] 3Result [...] tablet, 5 Refills, Maintenance, 07/15/19 16:13:00 EDT, [facility] #[id number], 1 tablet By Mouth Daily,x30 days,PRN:Headache,I... Start [...] capsule, 11 Refills, Maintenance, 04/29/19 17:44:00 EST, [facility] #10723, 155, cm, 04/11/19 11:34:00 EST, Height, 56.8, [...] each, 3 Refills, Maintenance, 03/23/20 15:54:00 EST, [facility] #91914, 155, cm, 03/17/20 13:55:00 EST, Height, 56.9, [...] Active Tardive dyskinesia(Confirmed) Active Ulcerative colitis(Confirmed) Active Vital Signs Most recent to oldest [Reference Range]: 1 2 3 Height 155 cm (06/12/20 5:32 PM) 155 cm (06/12/20 5:24 PM) 155 cm (06/12/20 4:00 PM) Weight 54.5 kg (06/12/20 5:32 PM) 54.5 kg (06/12/20 5:24 PM) 54.5 kg (06/12/20 4:00 PM) Oxygen Saturation [94-100 %] 100 % (06/12/20 5:32 PM) 98 % (06/12/20 5:24 PM) 98 % (06/12/20 4:00 PM) Pulse Rate [55-90 bpm] 75 bpm (06/12/20 5:32 PM) 80 bpm (06/12/20 5:24 PM) 83 bpm (06/12/20 4:00 PM) Body Mass Index [18.5-24.99] 22.68 (06/12/20 5:32 PM) 22.68 (06/12/20 5:24 PM) 22.68 (06/12/20 4:00 PM) Blood Pressure [90-138/55-84 mm Hg] 121/68mm Hg (06/12/20 5:32 PM) 125/70mm Hg (06/12/20 5:24 PM) 118/72mm Hg (06/12/20 4:00 PM) Respiratory Rate [16-30 br/min] 16 br/min (06/12/20 5:32 PM) 18 br/min (06/12/20 5:24 PM) 22 br/min (06/12/20 4:00 PM) Temperature [96.8-100.4 DegF] 97.8 DegF (06/12/20 1:57 PM) Mode of Delivery (Oxygen) Room air (06/12/20 5:32 PM) Room air (06/12/20 5:24 PM) Room air (06/12/20 4:00 PM) Blood pressure sites Arm, left (06/12/20 4:00 PM) Temperature Route Oral (06/12/20 1:57 PM) Dry Weight 54.5 kg (06/12/20 5:32 PM) 54.5 kg (06/12/20 5:24 PM) 54.5 kg (06/12/20 4:00 PM) Weight Obtained Via Patient/family state d (06/12/20 1:57 PM) Dry Weight Obtained Via Patient/family s tated (06/12/20 1:57 PM) Social History Social History Type Response Smoking Status Never smoker entered on: 04/16/14 Sex
--- OUTSIDE RECORDS SUMMARY | 2022-10-07 06:14 | XMS_ITS | Continuity of Care Document ---
Author Name Unknown Organization [facility] Address [address] [place] [address]- Care Team Providers Care Chief Crew Scheduler Name Role Phone Patsy GERARDO, Rowan Leone Primary Care Physician Encounter [facility] Date(s): 03/08/21 - 04/07/21 [facility] [place] [address] [place] [address]- Allergies, Adverse Reactions, Alerts Substance Reaction Severity Status aspirin Active atorvastatin abd pain Active sulfa drugs Rash Active Dipentum Active Bactrim Active nonsteroidal anti-inflammatory agents Active Latex Unknown Active voriconazole Active Abilify Active Soy Products Active NSAIDs Active Lactose Active Immunizations Given and Recorded [...] tablet, 5 Refills, Maintenance, 07/21/20 20:30:00 EDT, [facility] # 20, 1 tablet By Mouth [...] capsule, 11 Refills, Maintenance, 04/29/19 17:44:00 EST, [id number], 155, cm, 04/11/19 11:34:00 EST, Height, 56.8, kg, 04/11/19 11:34:00 EST, Dry Weight Start Date: 04/29/19 Status: Ordered diazepam 2 mg oral tablet 4 mg, 2, tablet, By Mouth, 3 times a day, for 30 days, # 180 tablet, Refills 3, Tot. Refills 3, Acute 06/03/21 10:50:00 EST, 02/03/21 10:50:00 EST, Route to Pharmacy Electronically, [facility] # [facility], 155, cm, 02/01/21 17:23:00 EST, Height, 54.5, kg... Start Date: 02/03/21 Stop Date: 06/03/21 Status: Ordered diazepam 2 mg oral tablet 4 mg, 2, tablet, By Mouth, 2 times a day, # 120 tablet, Refills 5, Tot. Refills 5, Maintenance, 01/14/21 12:51:00 EDT, Route to Pharmacy Electronically, [facility] # [facility], 155, cm, 11/20/20 9:27:00EDT, [...] each, 3 Refills, Maintenance, 03/23/20 15:54:00 EST, [facility] #[id number], 155, cm, 03/17/20 13:55:00 EST, Height, 56.9, [...]
--- OUTSIDE RECORDS SUMMARY | 2022-10-07 06:14 | XMS_ITS | Continuity of Care Document ---
Author Name Unknown Organization [facility] Address [address] [place] [address]- Care Team Providers Care Tankroom Worker Name Role Phone Patsy GERARDO, Rowan Leone Primary Care Physician [phone] Encounter [facility] Date(s): 06/11/21 - 07/11/[address] [address]- Attending Physician: Yoly Siddiqi Admitting Physician: AdmtrYoly Referring Physician: Admtr, Srikanth8 Allergies, Adverse Reactions, Alerts Substance Reaction Severity [...] Date Status Refusal Reason pneumococcal 23-valent vaccine 1/20/15 Not Given Patient Refuses 1Result Comment: GIVEN [...] tablet, 5 Refills, Maintenance, 07/21/20 20:30:00 EDT, [facility] # 20, 1 tablet By Mouth Daily,x30 days,PRN:Headache,Instr:no... Start Date: 07/21/20 Stop Date: 01/17/21 Status: Ordered azelastine 137 mcg/inh (0.1%) nasal spray 2 sprays, Nares, Both, Daily, PRN Other Allergies, in each nostril, # 30 mL, 5 Refills, Maintenance, 04/08/21 17:11:00 EST, [place], [facility] # [facility], Partial fill upon [...] capsule, 11 Refills, Maintenance, 04/29/19 17:44:00 EST, [facility] #[id number], 155, cm, 04/11/19 11:34:00 EST, Height, 56.8, [...] each, 3 Refills, Maintenance, 03/23/20 15:54:00 EST, [facility] #[id number], 155, cm, 03/17/20 13:55:00 EST, Height, 56.9, [...]
--- OUTSIDE RECORDS SUMMARY | 2022-10-07 06:14 | XMS_ITS | Continuity of Care Document ---
Author Name Unknown Organization [facility] Address [address] [place] [address]- Care Team Providers Care Rim Fire Charger Operator Name Role Phone Patsy GERARDO, Rowan Leone Primary Care Physician Encounter [facility] Date(s): 05/03/22 - 06/02/22 [facility] [place] [address] [place] [address]- Allergies, Adverse Reactions, Alerts Substance Reaction Severity [...] 12:37:39 EDT, Aeros[place], Route to Pharmacy Electronically, [facility]-[id number], [facility] [address], [place] Start Date: 10/04/17 Status: Ordered azelastine 137 mcg/inh (0.1%) nasal spray 2 sprays, Nares, Both, Daily, PRN Other Allergies, in each nostril, # 30 mL, 5 Refills, Maintenance, 04/08/21 17:11:00 EST, [place], [facility] # [facility], Partial fill upon patient request if the prescription is for a schedule II opioid drug., 2 sprays... Start Date: 04/08/21 Status: Ordered Carafate 1 gm oral tablet 1 Gm, 1, tablet, By Mouth, 3 times a day before meals, on an empty stomach, # 90 tablet, Refills 2,Tot. Refills 2, Maintenance, 05/09/22 10:48:00 EST, Route to Pharmacy Electronically, [facility] #[id number], Duplicate from 03/11/22, 159, cm, 11... Start [...] capsule, 11 Refills, Maintenance, 04/29/19 17:44:00 EST, [facility] #[id number], 155, cm, 04/11/19 11:34:00 EST, Height, 56.8, kg, 04/11/19 11:34:00 EST, Dry Weight Start Date: 04/29/19 Status: Ordered diazepam 2 mg oral tablet 4 mg, 2, tablet, By Mouth, 2 times a day, masspat checked, # 120 tablet, Refills 4, Tot. Refills 4,Maintenance, 05/04/22 14:36:00 EST, Route to Pharmacy Electronically, [facility] # [facility], 159, cm,02/04/22 14:02:00 EST, Height, 59.2, kg, 10/26/21 1... Start Date: 05/04/22 Stop Date: 10/01/22 Status: Ordered Euthyrox 25 mcg (0.025 mg) oral tablet See Instructions, TAKE 1 TABLET BY MOUTH DAILY ALTERNATING WITH 1.5 TABLETS EVERY OTHER DAY, # 45 tablet, 5 Refills, Maintenance, 02/04/22 13:36:00 EST, [facility] # 20, 159, cm, 10/26/21 15:18:00 EDT, Height, 59.2, kg, 10/26/21 15:18:00 EDT, Dry... Start Date: 02/04/22 Status: Ordered fluticasone 50 mcg/inh nasal spray 1 sprays = 50 mcg, Nares, Both, Daily, PRN Nasal Congestion, as needed, # 16 Gm, 0 Refills, Maintenance, 10/04/19 16:12:00 EDT, [place], [facility] #[id number], 1 sprays Nares, Both Daily,PRN:Nasal Congestion,Instr:as needed, 155, cm, ... Start Date: 10/04/19 Status: Ordered Folic Acid [...] each, 2 Refills, Maintenance, 02/04/22 16:26:00 EST, [facility] # 20, 159, cm, 02/04/22 14:02:00 EST, Height, 59.2, kg, 10/26/21 15:18:00 EDT, Dry Weight Start Date: 02/04/22 Status: Ordered sertraline 100 mg oral tablet 1.5 tablet = 150 mg, By Mouth, Daily, # 45 tablet, 4 Refills, Maintenance, 05/04/22 14:38:00 EST, Tablet, [facility] # [facility], 159, cm, 02/04/22 14:02:00 [...] Care Team Personnel Name: Nancy Amaya Position: [facility] RN Member Role: Primary Care Nurse Name: Brigid Abbasi Position: [facility] RN Member Role: Primary Care Nurse Name: Rowan Garner MD Position: [facility] Primary Care Physician Member Role: PCP Address: Address: [address] [place] [id number]- Name: Liz Ley RN Position: [facility] RN Member Role: Primary Care Nurse Care Team Related Persons Name: Romel ALONZO Address: home [address] [address] Name: WENDY CHEN Address: home [address] [place] [address] Name: YAMEL CHEN Address: home [address] [place] [address] Name: PEPE LINARES Address: home [address] [facility] [address] [facility] [address] [place] [address]
--- OUTSIDE RECORDS SUMMARY | 2022-10-07 06:14 | XMS_ITS | Continuity of Care Document ---
Author Name Unknown Organization [facility] Address 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, [address], [address] [place] [address]- [facility] Attending Physician: Yoly Siddiqi Admitting Physician: AdmtrYoly [...] tablet, 5 Refills, Maintenance, 07/15/19 16:13:00 EDT, [facility] #[id number], 1 tablet By Mouth Daily,x30 days,PRN:Headache,I... Start [...] capsule, 11 Refills, Maintenance, 04/29/19 17:44:00 EST, [facility] #[id number], 155, cm, 04/11/19 11:34:00 EST, Height, 56.8, kg, 04/11/19 11:34:00 EST, Dry Weight Start Date: 04/29/19 Status: Ordered diazepam 2 mg oral tablet 4 mg, 2, tablet, By Mouth, 2 times a day, # 120 tablet, Refills 3, Tot. Refills 3, Maintenance, 12/24/19 9:27:00 EDT, Route to Pharmacy Electronically, [facility] #[id number], 155, cm, 11/28/19 14:53:00 EDT, Height, 56.9, kg, 05/07/19 13:47:00 ES... Start Date: 12/24/19 Status: Ordered Folic Acid = 800 mcg, Daily, 0 Refills, Maintenance, 02/13/14 19:02:48 Start Date: 02/13/14 Status: Ordered levothyroxine 0.025 mg oral tablet See Instructions, TAKE 1 TABLET ALTERNATING WITH 1.5 TABLETS BY MOUTH EVERY OTHER DAY, # 45 tablet,5 Refills, Soft Stop, 05/21/19 10:56:00 EST, [facility] #[id number], 155, cm, 05/07/19 13:47:00 EST, Height, 56.9, [...]
--- OUTSIDE RECORDS SUMMARY | 2022-10-07 06:14 | XMS_ITS | Continuity of Care Document ---
Author Name Unknown Organization [facility] Address [address] [place] [address]- Care Team Providers Care Program Director/Traffic Director Name Role Phone Patsy GERARDO, Rowan Leone Primary Care Physician [phone] Encounter [facility] Date(s): 06/21/21 - 07/21/21 [facility] [address] [place] [address]- Allergies, Adverse Reactions, Alerts Substance Reaction Severity [...] tablet, 5 Refills, Maintenance, 07/21/20 20:30:00 EDT, [facility] # 20, 1 tablet By Mouth Daily,x30 days,PRN:Headache,Instr:no... Start Date: 07/21/20 Stop Date: 01/17/21 Status: Ordered azelastine 137 mcg/inh (0.1%) nasal spray 2 sprays, Nares, Both, Daily, PRN Other Allergies, in each nostril, # 30 mL, 5 Refills, Maintenance, 04/08/21 17:11:00 EST, [place], [facility] # 20, Partial fill upon [...] capsule, 11 Refills, Maintenance, 04/29/19 17:44:00 EST, [facility] #[id number], 155, cm, 04/11/19 11:34:00 EST, Height, 56.8, [...] each, 3 Refills, Maintenance, 03/23/20 15:54:00 EST, [facility] #[id number], 155, cm, 03/17/20 13:55:00 EST, Height, 56.9, [...]
--- OUTSIDE RECORDS SUMMARY | 2022-10-07 06:14 | XMS_ITS | Continuity of Care Document ---
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 Role Phone Patsy GERARDO, Rowan Leone Primary Care Physician [phone] Encounter [facility] Date(s): 08/09/22 - 09/08/22 [facility] [address] [place] [address]- Allergies, Adverse Reactions, Alerts Substance Reaction Severity [...] Given Patient Refuses 1Result Comment: GIVEN AT [facility] 2Result Comment: [01/04/2017] [facility] 3Result [...] mL, 5 Refills, Maintenance, 04/08/21 17:11:00 EST, [place], [facility], Partial fill upon [...] 2 Refills, Maintenance, 06/06/22 13:18:00 EDT, Tablet, [facility] # [facility], Partial fill upon patient [...] capsule, 11 Refills, Maintenance, 04/29/19 17:44:00 EST, [facility] #[id number], 155, cm, 04/11/19 11:34:00 EST, Height, 56.8, kg, 04/11/19 11:34:00 EST, Dry Weight Start Date: 04/29/19 Status: Ordered diazepam 2 mg oral tablet 4 mg, 2, tablet, By Mouth, 2 times a day, masspat checked, # 120 tablet, Refills 4, Tot. Refills 4,Maintenance, 05/04/22 14:36:00 EST, Route to Pharmacy Electronically, [facility] # [facility], 159, cm,02/04/22 14:02:00 EST, Height, 59.2, kg, 10/26/21 1... Start Date: 05/04/22 Stop Date: 10/01/22 Status: Ordered Euthyrox 25 mcg (0.025 mg) oral tablet See Instructions, TAKE 1 TABLET BY MOUTH DAILY ALTERNATING WITH 1.5 TABLETS EVERY OTHER DAY, # 45 tablet, 2 Refills, Maintenance, 08/28/22 17:47:00 EDT, [facility] # 20, 158, cm, 08/08/22 14:58:00 EDT, Height, 63.8, kg, 07/14/22 15:22:00 EDT, Dry... Start Date: 08/28/22 Status: Ordered fluticasone 50 mcg/inh nasal spray 1 sprays = 50 mcg, Nares, Both, Daily, PRN Nasal Congestion, as needed, # 16 Gm, 3 Refills, Maintenance, 06/06/22 13:18:00 EDT, Nasal [place], [facility] # 20, 1 sprays [...] each, 2 Refills, Maintenance, 02/04/22 16:26:00 EST, [facility] # 20, 159, cm, 02/04/22 14:02:00 EST, Height, 59.2, kg, 10/26/21 15:18:00 EDT, Dry Weight Start Date: 02/04/22 Status: Ordered sertraline 100 mg oral tablet 1.5 tablet = 150 mg, By Mouth, Daily, # 45 tablet, 4 Refills, Maintenance, 08/30/22 15:08:00 EDT, Tablet, [facility] # 20, 158, cm, 08/08/22 14:58:00 EDT, Height, 63.8, kg, 07/14/22 15:22:00 EDT,Dry Weight Start Date: 08/30/22 Stop Date: 01/27/23 Status: Ordered sucralfate 1 gm oral tablet 1, tablet, By Mouth, 3 times a day before meals, ON AN ON AN EMPTY STOMACH., # 90 tablet, Refills 2, Tot. Refills 2, Maintenance, 07/11/22 20:08:00 EDT, Route to Pharmacy Electronically, [facility] #[id number], 158, cm, 06/22/22 10:29:00 EDT, [place]... Start [...] Team Personnel Name: Nancy Love [place] Position: [facility] RN Member Role: Primary Care Nurse Name: Brigid Abbasi Position: [facility] RN Member Role: Primary Care Nurse Name: Rowan Garner MD Position: [facility] Physician - Primary Care Member Role: PCP Address: Address: [address] [place] [id number] Name: Liz Ley RN Position: [facility] RN Member Role: Primary Care Nurse Care Team Related Persons Name: Romel ALONZO Address: home [address] [place], [place] Name: WENDY CHEN Address: home [address] [place], [place] Name: YAMEL CHEN Address: home [address] [place], [place] Name: PEPE LINARES Address: home [address] [place], [place]
--- OUTSIDE RECORDS SUMMARY | 2022-10-07 06:14 | XMS_ITS | Continuity of Care Document ---
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 Name Role Phone Patsy GERARDO, Rowan Leone Primary Care Physician Encounter [facility] Date(s): 03/09/22 - 04/08/22 [facility] [address] [place] [address]- Allergies, Adverse Reactions, Alerts Substance Reaction Severity [...] 12:37:39 EDT, Aerosol, Route to Pharmacy Electronically, ALPDP_[id number], [facility] [address], Compound Start Date: 10/04/17 Status: Ordered azelastine 137 mcg/inh (0.1%) nasal spray 2 sprays, Nares, Both, Daily, PRN Other Allergies, in each nostril, # 30 mL, 5 Refills, Maintenance, 04/08/21 17:11:00 EST, [place], [facility] # [facility], Partial fill [...] capsule, 11 Refills, Maintenance, 04/29/19 17:44:00 EST, [facility] #[id number], 155, cm, 04/11/19 11:34:00 EST, Height, 56.8, kg, 04/11/19 11:34:00 EST, Dry Weight Start Date: 04/29/19 Status: Ordered diazepam 2 mg oral tablet 4 mg, 2, tablet, By Mouth, 2 times a day, masspat checked, # 120 tablet, Refills 4, Tot. Refills 4,Maintenance, 12/29/21 14:43:00 EDT, Route to Pharmacy Electronically, [facility] # [facility], 159, cm,10/26/21 15:18:00 EDT, Height, 59.2, kg, 10/26/21 1... Start Date: 12/29/21 Stop Date: 05/28/22 Status: Ordered Euthyrox 25 mcg (0.025 mg) oral tablet See Instructions, TAKE 1 TABLET BY MOUTH DAILY ALTERNATING WITH 1.5 TABLETS EVERY OTHER DAY, # 45 tablet, 5 Refills, Maintenance, 02/04/22 13:36:00 EST, [facility] # [facility], 159, cm, 10/26/21 15:18:00 EDT, Height, 59.2, kg, 10/26/21 15:18:00 EDT, Dry... Start Date: 02/04/22 Status: Ordered fluticasone 50 mcg/inh nasal spray 1 sprays = 50 mcg, Nares, Both, Daily, PRN Nasal Congestion, as needed, # 16 Gm, 0 Refills, Maintenance, 10/04/19 16:12:00 EDT, Nasal [place], [facility] #[id number], 1 sprays Nares, Both Daily,PRN:Nasal Congestion,Instr:as needed, [...] each, 2 Refills, Maintenance, 02/04/22 16:26:00 EST, [facility] # [facility], 159, cm, 02/04/22 14:02:00 EST, Height, 59.2, kg, 10/26/21 15:18:00 EDT, Dry Weight Start Date: 02/04/22 Status: Ordered sertraline 100 mg oral tablet 1.5 tablet = 150 mg, By Mouth, Daily, # 45 tablet, 4 Refills, Maintenance, 12/29/21 14:42:00 EDT, Tablet, [facility] # [facility], 159, cm, 10/26/21 15:18:00 [...] Care Team Personnel Name: Nancy Amaya Position: [facility] RN Member Role: Primary Care Nurse Name: Brigid Abbasi Position: [facility] RN Member Role: Primary Care Nurse Name: Rowan Garner MD Position: [facility] Primary Care Physician Member Role: PCP Address: Address: [address] [place] [address]- Name: Liz Ley RN Position: [facility] RN Member Role: Primary Care Nurse Care Team Related Persons Name: Romel ALONZO Address: [address] [address] Name: WENDY CHEN Address: home [address] [place] [address] Name: YAMEL CHEN Address: home [address] [place] [address] Name: PEPE LINARES Address: home [address] [place] [address]
--- OUTSIDE RECORDS SUMMARY | 2022-10-07 06:14 | XMS_ITS | Continuity of Care Document ---
Author Name Unknown Organization [facility] Address [address] [place] [address]- Care Team Providers Care Nursing Program Coordinator Name Role Phone Patsy GERARDO, Rowan Leone Primary Care Physician Encounter [facility] Date(s): 01/06/22 - 02/05/[address] [address]- Attending Physician: Yoly Siddiqi Admitting Physician: AdmYoly [...] Given Patient Refuses 1Result Comment: GIVEN AT [facility] 2Result Comment: [01/04/2017] [facility] 3Result [...] 12:37:39 EDT, Aerosol, Route to Pharmacy Electronically, NCPDP_[id number], [facility] [address], Compound Start Date: 10/04/17 Status: Ordered azelastine 137 mcg/inh (0.1%) nasal spray 2 sprays, Nares, Both, Daily, PRN Other Allergies, in each nostril, # 30 mL, 5 Refills, Maintenance, 04/08/21 17:11:00 EST, [place], [facility], Partial fill upon patient request if the prescription is for a schedule II opioid drug., 2 sprays... Start Date: 04/08/21 Status: Ordered Carafate 1 gm oral tablet 1 Gm, 1, tablet, By Mouth, 3 times a day before meals, on an empty stomach, # 90 tablet, Refills 8,Tot. Refills 8, Maintenance, 07/08/21 10:22:00 EDT, Route to Pharmacy Electronically, [facility], 155, cm, 05/25/21 13:10:00 EST, Height, 54.5... Start Date: 07/08/21 Stop Date: 04/04/22 Status: Ordered Centrum Silver Ultra Women's 1 [...] capsule, 11 Refills, Maintenance, 04/29/19 17:44:00 EST, [facility] #[id number], 155, cm, 04/11/19 11:34:00 EST, Height, 56.8, kg, 04/11/19 11:34:00 EST, Dry Weight Start Date: 04/29/19 Status: Ordered diazepam 2 mg oral tablet 4 mg, 2, tablet, By Mouth, 2 times a day, masspat checked, # 120 tablet, Refills 4, Tot. Refills 4,Maintenance, 12/29/21 14:43:00 EDT, Route to Pharmacy Electronically, [facility] # [facility], 159, cm,10/26/21 15:18:00 EDT, Height, 59.2, kg, 10/26/21 1... Start Date: 12/29/21 Stop Date: 05/28/22 Status: Ordered Euthyrox 25 mcg (0.025 mg) oral tablet See Instructions, TAKE 1 TABLET BY MOUTH DAILY ALTERNATING WITH 1.5 TABLETS EVERY OTHER DAY, # 45 tablet, 5 Refills, Maintenance, 02/04/22 13:36:00 EST, [facility] # 20, 159, cm, 10/26/21 15:18:00 EDT, Height, 59.2, kg, 10/26/21 15:18:00 EDT, Dry... Start Date: 02/04/22 Status: Ordered fluticasone 50 mcg/inh nasal spray 1 sprays = 50 mcg, Nares, Both, Daily, PRN Nasal Congestion, as needed, # 16 Gm, 0 Refills, Maintenance, 10/04/19 16:12:00 EDT, Nasal [place], [facility] #[id number], 1 sprays Nares, Both Daily,PRN:Nasal Congestion,Instr:as needed, [...] each, 2 Refills, Maintenance, 02/04/22 16:26:00 EST, [facility] # [facility], 159, cm, 02/04/22 14:02:00 EST, Height, 59.2, kg, 10/26/21 15:18:00 EDT, Dry Weight Start Date: 02/04/22 Status: Ordered sertraline 100 mg oral tablet 1.5 tablet = 150 mg, By Mouth, Daily, # 45 tablet, 4 Refills, Maintenance, 12/29/21 14:42:00 EDT, Tablet, [facility] # [facility], 159, cm, 10/26/21 15:18:00 [...] Rowan Garner MD Position: [facility] Primary Care Physician Member Role: PCP Address: Address: [address] [place] [id number] Name: Liz Ley RN Position: [facility] RN Member Role: Primary Care Nurse Care Team Related Persons Name: Romel ALONZO Address: home [address] [place] [address] [address] [place], [place] Name: WENDY CHEN Address: home [address] [place] [address] Name: YAMEL CHEN Address: home [address] [place], [place] Name: PEPE LINARES Address: [address] [place] [address]
--- OUTSIDE RECORDS SUMMARY | 2022-10-07 06:15 | XMS_ITS ---
Author Name Panda Joseph Jr Address [address] [place] [address] Organization [facility] Address [address] [place] [address] Care Team Providers Care Desk Assistant Name Role Phone Jake BaerSalvatorePanda Unavailable PROBLEMS Type Condition ICD9-CM Code [id number] Code Onset Dates Condition Status SNOMED Code Problem Ulcerative pancolitis with abscess K51.014 Active Problem Eid's esophagus without dysplasia K22.70 Active 201406014 Problem Ulcerative pancolitis without complication K51.00 Active [id number] ALLERGIES Substance Reaction Event Type Date Status Ibuprofen Unknown Drug Allergy July, Active Sulfur Unknown Drug Allergy July, Active Aspirin 81 Unknown Drug Allergy July, Active Voriconazole Unknown Drug Allergy July, Active lactose intolerant Unknown Non Drug Allergy July, Active ENCOUNTERS Encounter Location Date Diagnosis [facility] [address] [place], [place] [id number] Sep, [facility] [address] [place] [phone] July, Eid's esophagus without dysplasia K22.70 and Ulcerative pancolitis without complication K51.00 [facility] [address] [place] [phone] July, [facility] [address] [place] [phone] 14 Jun, 2021 [facility] [address] [place] [address] 14 Jun, 2021 Eid's esophagus without dysplasia K22.70 and Ulcerative pancolitis without complication K51.00 [facility] [address] [place] [address] 09 May, 2021 [facility] [address] [place] [address] Apr, [facility] [address] [place] [address] 23 Nov, 2020 [facility] [address] [place] [phone] 15 Aug, 2020 [facility] [address] [place] [address] 14 Aug, 2020 [facility] [address] [place] [phone] Jun, [facility] [address] [place] [id number] Jun, Ulcerative pancolitis K51.00 [facility] [address] [place] [address] 12 Jun, 2020 [facility] [address] [place] [address] Jun, Eid's esophagus without dysplasia K22.70 and Ulcerative pancolitis without complication K51.00 [facility] [address] [place] [phone] 31 May, 2020 [facility] [address] [place] [address] 29 May, 2020 [facility] [address] [place] [phone] Apr, [facility] [address] [place] [phone] Dec, IMMUNIZATIONS Vaccine Route Administration Date Status Influenza Unknown May 25, 2021 Administered Influenza Unknown Nov 25, 2020 Administered Influenza Unknown Nov 26, 2019 Administered SOCIAL HISTORY Qualifiers Date Never Smoker REASON FOR REFERRAL FUNCTIONAL STATUS PLAN OF CARE Activity Details VITAL SIGNS Weight 137 lbs 2022-08-18 Weight 124 lbs 2021-07-08 Weight 119 lbs 2020-06-25 Height 61 in 2022-08-18 Height 61 in 2021-07-08 Height 61 in 2020-06-25 BMI 25.88 kg/m2 2022-08-18 BMI 23.43 kg/m2 2021-07-08 BMI 22.48 kg/m2 2020-06-25 Temperature 97.7 degrees Fahrenheit Temperature 98.4 degrees Fahrenheit Temperature 97.7 degrees Fahrenheit Blood pressure systolic 000 mm Hg Blood pressure diastolic 00 mm Hg 2022-07 MEDICATIONS Medication Instructions Dosage Frequency Start Date End Date Duration Status Sucralfate 1 GM Oral three times a day TAKE 1 TABLET BY MOUTH TWICE DAILY 8h Active Euthyrox Active SUMAtriptan Succinate 50 MG 30 Acti ve Fluconazole Acti ve Sertraline HCl 100 MG TAKE 1.5 TABLETS BY MOUTH DAILY 30 Active Albuterol Sulfate HFA 108 (90 Base) MCG/ACT 30 Active Allergy Active Folic Acid Activ e Levothyroxine Sodium 25 MCG TAKE 1 TABLET BY MOUTH DAILY ALTERNATING WITH 1.5 TABLETS BY MOUTH EVERY OTHER DAY 28 Active Multivitamin Adult Active Mesalamine 400 MG Orally Three times a day 2 capsules 8h Apr, 30 days Active Pantoprazole Sodium 40 MG TAKE ONE TABLET BY MOUTH TWICE A DAY 30 Active Praluent 75 MG/ML 28 Active Calcium Active diazePAM 2 MG (Schedule IV Drug) TAKE 2 TABLETS BY MOUTH TWICE DAILY 30 Active Cranberry Active Fluticasone Propionate Active PROCEDURES Procedure Date Ordered Result Body Site COLONOSCOPY AND BIOPSY July 15, 2020 UPPER GI ENDOSCOPY, BIOPSY Mar 06, 2018 INTRVL 3+YRS PTS CLNSCP DOCD July 15, 2020 COLORECTAL CA SCREEN DOC REV August 18, 2022 COLORECTAL CA SCREEN DOC REV June 25, 2020 COLORECTAL CA SCREEN DOC REV July 08, 2021 BP NOT ASSESS PATIENT NOT ELIGIBLE June 25, 2020 COLONOSCOPY AND BIOPSY Mar 15, 2016 Pt scrn tbco id as non user July 08, 2021 DOC MEDS VERIFIED W/PT OR RE June 25, 2020 DOC MEDS VERIFIED W/PT OR RE August 18, 2022 INIT HOSP-MOD CPLX Jan 07, 2016 DOC MEDS VERIFIED W/PT OR RE July 08, 2021 DOC RSN FOR NOT SCREEN/REC F/U HBP August 18, 2022 DOC RSN FOR NOT SCREEN/REC F/U HBP July 08, 2021 TOBACCO NON-USER June 25, 2020 Pt scrn tbco id as non user August 18, 2022 RESULTS Name Result Date Reference Range Pathology 2020-07-15 REASON FOR VISIT eid's, Patient presents today for gerd, coughing, appt, ov recall , Patient presents today for eid's esophagus, need script sent to [facility], refill pantoprazole , refill on Mesalamine , refill: Euthyrox , refill: Pantoprazole, path, ulcerative colitis, outstanding balance, patient presents today for ABDOMINAL PAIN, COVID Screen, covid questions, Refill Mesalamine , HAVING A LOT OF TROUBLE Insurance Providers Health Insurance Type Health Plan Insurance Address Health Plan Insurance Phone Health Plan Insurance Name Health Plan Coverage Dates Member ID Patient Relationship to Subscriber Patient Address Patient Phone Patient Name Patient Date of Subscriber ID Subscriber Name Subscriber Date of Group No [facility] [place] [address] [facility] [phone] [facility] self PAUL LINARES [id number] [place] [address] [facility] [address] [place] self PAUL LINARES [id number] [employer] SAFETY [facility] OFFICE - do not use do not use [employer] [address] use [email or web address] [facility] [id number] [employer] SAFETY [facility] OFFICE - do not use self PAUL LINARES [id number] [employer] CLAIMS [address] [facility] [address] [employer] self PAUL LINARES [id number] MEDICAID OF [facility] Embedded [facility] [address] [facility] [address] MEDICAID OF [facility] self PAUL LINARES [id number]
--- OUTSIDE RECORDS SUMMARY | 2022-10-07 06:15 | XMS_ITS | Continuity of Care Document ---
Author Name Unknown Organization [facility] Address [address] [place] [address]- Care Team Providers Care Riveter Portable Machine Name Role Phone Patsy GERARDO, Rowan Leone Primary Care Physician [phone] Encounter [facility] Date(s): 02/01/21 - 03/03/21 [facility] [address] [place] [address]- Allergies, Adverse Reactions, Alerts Substance Reaction Severity [...] tablet, 5 Refills, Maintenance, 07/21/20 20:30:00 EDT, [facility] # [facility], 1 tablet By [...] capsule, 11 Refills, Maintenance, 04/29/19 17:44:00 EST, [id number], 155, cm, 04/11/19 11:34:00 EST, Height, 56.8, kg, 04/11/19 11:34:00 EST, Dry Weight Start Date: 04/29/19 Status: Ordered diazepam 2 mg oral tablet 4 mg, 2, tablet, By Mouth, 3 times a day, for 30 days, # 180 tablet, Refills 3, Tot. Refills 3, Acute 06/03/21 10:50:00 EST, 02/03/21 10:50:00 EST, Route to Pharmacy Electronically, [facility], 155, cm, 02/01/21 17:23:00 EST, Height, 54.5, kg... Start Date: 02/03/21 Stop Date: 06/03/21 Status: Ordered diazepam 2 mg oral tablet 4 mg, 2, tablet, By Mouth, 2 times a day, # 120 tablet, Refills 5, Tot. Refills 5, Maintenance, 01/14/21 12:51:00 EDT, Route to Pharmacy Electronically, [facility], 155, cm, 11/20/20 9:27:00EDT, [...] each, 3 Refills, Maintenance, 03/23/20 15:54:00 EST, [facility] #[id number], 155, cm, 03/17/20 13:55:00 EST, Height, 56.9, [...]
--- OUTSIDE RECORDS SUMMARY | 2022-10-07 06:15 | XMS_ITS | Continuity of Care Document ---
Author Name Unknown Organization [facility] Address [address] [place] [address]- Care Team Providers Care Field Clerk Name Role Phone Patsy GERARDO, Rowan Leone Primary Care Physician Encounter [facility] [id number] Date(s): 04/11/19 - 04/11/[address] [address]- [facility] Encounter Diagnosis Chronic GERD(Final) - 04/11/19 Anxiety(Final) - 04/11/19 Discharge Disposition: A-D/C Home Attending Physician: Jose [...] 15:17:53 EDT Start Date: 10/05/18 Status: Ordered diazepam 2 mg oral tablet See Instructions, Take 1 tab in AM, and 2 in PM., # 90 tablet, Refills 5, Tot. Refills 5, Maintenance, 02/25/19 12:37:52 EST, Instructions Replace Required Details, [id number] [address] Start Date: 02/25/19 Status: Ordered fluticasone 50 mcg/inh nasal spray 1 sprays, Nares, Both, Daily, PRN Nasal Congestion, # 16 Gm, 0 Refills, Maintenance, 10/22/14 17:35:07 EDT, [place] Start Date: 10/22/14 Status: Ordered Folic Acid = 800 mcg, Daily, 0 Refills, Maintenance, 02/13/14 19:02:48 Start Date: 02/13/14 Status: Ordered levothyroxine 0.025 mg oral tablet See Instructions, # 45 tablet, Refills 5 Tot. Refills 5, TAKE 1 TABLET ALTERNATING WITH 1.5 TABLETSBY MOUTH EVERY OTHER DAY, [facility] [address] Start Date: 10/01/18 Status: Ordered Viactiv Soft Calcium Chews Calcium [...] Range]: 1 2 3 Height 155 cm (04/11/19 11:34 AM) 155 cm (04/11/19 9:48 AM) 155 cm (04/11/19 9:36 AM) Weight 56.8 kg (04/11/19 11:34 AM) 56.8 kg (04/11/19 9:48 AM) 56.8 kg (04/11/19 9:36 AM) Oxygen Saturation [94-100 %] 96 % (04/11/19 11:34 AM) 99 % (04/11/19 9:36 AM) Pulse Rate [55-90 bpm] 68 bpm (04/11/19 11:34 AM) 77 bpm (04/11/19 9:36 AM) Body Mass Index [18.5-24.99] 23.64 (04/11/19 11:34 AM) 23.64 (04/11/19 9:36 AM) Blood Pressure [90-138/55-84 mm Hg] 93/62mm Hg (04/11/19 11:34 AM) 82/65mm Hg *L* (04/11/19 9:36 AM) Respiratory Rate [16-30 br/min] 18 br/min (04/11/19 11:34 AM) 20 br/min (04/11/19 9:36 AM) Temperature [96.8-100.4 DegF] 98.4 DegF (04/11/19 11:34 AM) 97.6 DegF (04/11/19 9:36 AM) Mode of Delivery (Oxygen) Room air (04/11/19 11:34 AM) Room air (04/11/19 9:36 AM) Blood pressure sites Arm, left (04/11/19 11:34 AM) Arm, left (04/11/19 9:36 AM) Temperature Route Oral (04/11/19 11:34 AM) Oral (04/11/19 9:36 AM) Dry Weight 56.8 kg (04/11/19 11:34 AM) 56.8 kg (04/11/19 9:48 AM) 56.8 kg (04/11/19 9:36 AM) Social History Social History Type Response Smoking Status Never smoker entered on: 04/16/14 Sex
--- OUTSIDE RECORDS SUMMARY | 2022-10-07 06:15 | XMS_ITS | Continuity of Care Document ---
Author Name Unknown Organization [facility] Address [address] [place] [address]- Care Team Providers Care Accounts Adjustable Clerk Name Role Phone Patsy GERARDO, Rowan Leone Primary Care Physician Encounter [facility] Date(s): 03/22/21 - 04/21/21 [facility] [address] [place], [place] [address] Allergies, Adverse Reactions, Alerts Substance Reaction [...] mL, 5 Refills, Maintenance, 04/08/21 17:11:00 EST, [place], [facility], Partial fill upon [...] capsule, 11 Refills, Maintenance, 04/29/19 17:44:00 EST, [facility] #[id number], 155, cm, 04/11/19 11:34:00 EST, Height, 56.8, kg, 04/11/19 11:34:00 EST, Dry Weight Start Date: 04/29/19 Status: Ordered diazepam 2 mg oral tablet 4 mg, 2, tablet, By Mouth, 3 times a day, for 30 days, # 180 tablet, Refills 3, Tot. Refills 3, Acute 06/03/21 10:50:00 EST, 02/03/21 10:50:00 EST, Route to Pharmacy Electronically, [facility], 155, cm, 02/01/21 17:23:00 EST, Height, 54.5, kg... Start Date: 02/03/21 Stop Date: 06/03/21 Status: Ordered diazepam 2 mg oral tablet 4 mg, 2, tablet, By Mouth, 2 times a day, # 120 tablet, Refills 5, Tot. Refills 5, Maintenance, 01/14/21 12:51:00 EDT, [facility] to [facility] Electron[facility], [facility] each, 3 Refills, Maintenance, 03/23/20 15:54:00 EST, [facility] #[id number], 155, cm, 03/17/20 13:55:00 EST, Height, 56.9, [...]
--- OUTSIDE RECORDS SUMMARY | 2022-10-07 06:15 | XMS_ITS | Continuity of Care Document ---
Author Name Unknown Organization [facility] Address [address] [facility], [address] d Floor, [address] [place] [id number]- Care Team Providers Care Chromium Plater Name Role Phone Patsy GERARDO, Rowan Leone Primary Care Physician Encounter [facility] Date(s): 07/15/19 - 07/22/19 [facility] [address] [facility], 3rd Floor, [address] [place] [address]- [facility] Attending Physician: Melissa GERARDO, Vicki Allergies, Adverse Reactions, Alerts Substance Reaction Severity [...] tablet, 5 Refills, Maintenance, 07/15/19 16:13:00 EDT, [facility] #[id number], 1 tablet By Mouth Daily,x30 days,PRN:Headache,I... Start [...] capsule, 11 Refills, Maintenance, 04/29/19 17:44:00 EST, [facility] #[id number], 155, cm, 04/11/19 11:34:00 EST, Height, 56.8, kg, 04/11/19 11:34:00 EST, Dry Weight Start Date: 04/29/19 Status: Ordered diazepam 2 mg oral tablet See Instructions, Take 1 tab in AM, and 2 in PM., # 90 tablet, Refills 5, Tot. Refills 5, Maintenance, 07/15/19 16:16:00 EDT, Instructions Replace Required Details, Route to Pharmacy Electronically, [facility] #[id number], 155, cm, 05/07/19 13:47... Start Date: 07/15/19 Status: Ordered fluticasone 50 mcg/inh nasal spray 1 sprays, Nares, Both, Daily, PRN Nasal Congestion, # 16 Gm, 0 Refills, Maintenance, 10/22/14 17:35:07 EDT, [place] Start Date: 10/22/14 Status: Ordered Folic Acid = 800 mcg, Daily, 0 Refills, Maintenance, 02/13/14 19:02:48 Start Date: 02/13/14 Status: Ordered levothyroxine 0.025 mg oral tablet See Instructions, TAKE 1 TABLET ALTERNATING WITH 1.5 TABLETS BY MOUTH EVERY OTHER DAY, # 45 tablet,5 Refills, Soft Stop, 05/21/19 10:56:00 EST, [facility] #[id number], 155, cm, 05/07/19 13:47:00 EST, Height, 56.9, [...]
--- OUTSIDE RECORDS SUMMARY | 2022-10-07 06:15 | XMS_ITS | Continuity of Care Document ---
Author Name Unknown Organization [facility] Address [address] [place] [address]- Care Team Providers Care Neuropsychology Division Chief Name Role Phone Patsy GERARDO, Rowan Leone Primary Care Physician [phone] Encounter [facility] [id number] Date(s): 12/21/21 - 02/24/[address] [address]- Encounter Diagnosis Repeated falls(Final) - Discharge Disposition: A-D/C Home Attending Physician: Meena Reyes Admitting Physician: Meena Reyes Referring Physician: Meena Reyes Allergies, Adverse Reactions, Alerts Substance Reaction Severity [...] Given Patient Refuses 1Result Comment: GIVEN AT [facility] 2Result Comment: [01/04/2017] [facility] [...] 12:37:39 EDT, Aerosol, Route to Pharmacy Electronically, [facility]_[id number], [facility] - [address], Compound Start Date: 10/04/17 Status: Ordered azelastine 137 mcg/inh (0.1%) nasal spray 2 sprays, Nares, Both, Daily, PRN Other Allergies, in each nostril, # 30 mL, 5 Refills, Maintenance, 04/08/21 17:11:00 EST, [place], [facility] # [facility], Partial fill upon patient request if the prescription is for a schedule II opioid drug., 2 sprays... Start Date: 04/08/21 Status: Ordered Carafate 1 gm oral tablet 1 Gm, 1, tablet, By Mouth, 3 times a day before meals, on an empty stomach, # 90 tablet, Refills 8,Tot. Refills 8, Maintenance, 07/08/21 10:22:00 EDT, Route to Pharmacy Electronically, [facility] # [facility], 155, cm, 05/25/21 13:10:00 EST, Height, 54.5... Start Date: 07/08/21 Stop Date: 04/04/22 Status: Ordered Centrum Silver Ultra Women's 1 tablet, By Mouth, Daily, 0 Refills, Maintenance, 04/15/14 16:52:38 Start Date: 04/15/14 Status: Ordered cetirizine 10 mg oral tablet 1 tablet = 10 mg, By Mouth, Daily, # 30 tablet, 0 Refills, Maintenance, 03/22/21 12:39:00 EST, Tablet, [facility] # [facility], Partial fill upon patient [...] capsule, 11 Refills, Maintenance, 04/29/19 17:44:00 EST, [facility] #[id number], 155, cm, 04/11/19 11:34:00 EST, Height, 56.8, kg, 04/11/19 11:34:00 EST, Dry Weight Start Date: 04/29/19 Status: Ordered diazepam 2 mg oral tablet 4 mg, 2, tablet, By Mouth, 2 times a day, masspat checked, # 120 tablet, Refills 4, Tot. Refills 4,Maintenance, 12/29/21 14:43:00 EDT, Route to Pharmacy Electronically, [facility] # [facility], 159, cm,10/26/21 15:18:00 EDT, Height, 59.2, kg, 10/26/21 1... Start Date: 12/29/21 Stop Date: 05/28/22 Status: Ordered Euthyrox 25 mcg (0.025 mg) oral tablet See Instructions, TAKE 1 TABLET BY MOUTH DAILY ALTERNATING WITH 1.5 TABLETS EVERY OTHER DAY, # 45 tablet, 5 Refills, Maintenance, 02/04/22 13:36:00 EST, [facility] # [facility], 159, cm, 10/26/21 15:18:00 EDT, Height, 59.2, kg, 10/26/21 15:18:00 EDT, Dry... Start Date: 02/04/22 Status: Ordered fluticasone 50 mcg/inh nasal spray 1 sprays = 50 mcg, Nares, Both, Daily, PRN Nasal Congestion, as needed, # 16 Gm, 0 Refills, Maintenance, 10/04/19 16:12:00 EDT, Nasal [place], [facility] #[id number], 1 sprays Nares, Both Daily,PRN:Nasal Congestion,Instr:as needed, [...] each, 2 Refills, Maintenance, 02/04/22 16:26:00 EST, [facility] # [facility], 159, cm, 02/04/22 14:02:00 EST, Height, 59.2, kg, 10/26/21 15:18:00 EDT, Dry Weight Start Date: 02/04/22 Status: Ordered sertraline 100 mg oral tablet 1.5 tablet = 150 mg, By Mouth, Daily, # 45 tablet, 4 Refills, Maintenance, 12/29/21 14:42:00 EDT, Tablet, [facility] # [facility], 159, cm, 10/26/21 15:18:00 [...] 30 tablet, 4 Refills, Maintenance,10/26/21 15:45:00 EDT, [facility] # [facility], Partial fill upon patient [...] Care Team Personnel Name: Nancy Amaya Position: [facility] RN Member Role: Primary Care Nurse Name: Brigid Abbasi Position: [facility] RN Member Role: Primary Care Nurse Name: Rowan Garner MD Position: [facility] Primary Care Physician Member Role: PCP Address: Address: [address] [place] [id number]- [place] Name: Liz Ley RN Position: [facility] RN Member Role: Primary Care Nurse Care Team Related Persons Name: Romel ALONZO Address: home [address] [place] [address] [address] [place], [place] Name: WENDY CHEN Address: home [address], [place] Name: YAMEL CHEN Address: home [address], [place] Name: PEPE LINARES Address: [address] [place], [place]
--- OUTSIDE RECORDS SUMMARY | 2022-10-07 06:15 | XMS_ITS | Continuity of Care Document ---
Author Name Unknown Organization [facility] Address [address] [place] [address]- Care Team Providers Care Christmas Tree Farm Manager Name Role Phone Rowan Garner MD Primary Care Physician Encounter [facility] Date(s): 02/01/21 - 03/06/21 [facility] [address] [place] [address]- Attending Physician: Daxa Vargas NP Referring Physician: Rowan Garner MD Allergies, Adverse [...] Given Patient Refuses 1Result Comment: GIVEN AT [facility] 2Result Comment: [01/04/2017] [facility] 3Result [...] Refills, Maintenance, 07/21/20 20:30:00 EDT, [facility] # 20, 1 tablet By [...] capsule, 11 Refills, Maintenance, 04/29/19 17:44:00 EST, [facility] #[id number], 155, cm, 04/11/19 11:34:00 EST, Height, 56.8, kg, 04/11/19 11:34:00 EST, Dry Weight Start Date: 04/29/19 Status: Ordered diazepam 2 mg oral tablet 4 mg, 2, tablet, By Mouth, 3 times a day, for 30 days, # 180 tablet, Refills 3, Tot. Refills 3, Acute 06/03/21 10:50:00 EST, 02/03/21 10:50:00 EST, Route to Pharmacy Electronically, [facility], 155, cm, 02/01/21 17:23:00 EST, Height, 54.5, kg... Start Date: 02/03/21 Stop Date: 06/03/21 Status: Ordered diazepam 2 mg oral tablet 4 mg, 2, tablet, By Mouth, 2 times a day, # 120 tablet, Refills 5, Tot. Refills 5, Maintenance, 01/14/21 12:51:00 EDT, Route to Pharmacy Electronically, [facility] # [facility], 155, cm, 11/20/20 [...] each, 3 Refills, Maintenance, 03/23/20 15:54:00 EST, [facility] #[id number], 155, cm, 03/17/20 13:55:00 EST, Height, 56.9, [...]
[2022-10-07 07:10] VITALS: BP 121/61; PULSE 84; RESP 18; TEMP 36.6; O2SAT 95
[2022-10-07] MEDS: Lactated Ringers 1,000 ML 100 ML IVCONT (07:10)
--- NOTE | 2022-10-07 08:19 | P.CONAN_ITS ---
HPI - Anesthesia Eval Consult details Narrative: EGD [facility] Past Medical History Medical History Barretts esophagus Cerebral palsy COVID-19 vaccine administered Depression Elevated cholesterol GERD (gastroesophageal reflux disease) History of headache Hypothyroid Irritable bowel syndrome Leukemia in remission Ulcerative colitis Family History Family history of problems with anesthesia: No Surgical History Surgical History H/O colonoscopy History of esophagogastroduodenoscopy (EGD) History of removal of Port-a-Cath History of Problems with Anesthesia: No Social History Social History Housing Other:: lives in complex for elderly & disabled / 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 Patient Tobacco Use Status: Never used Tobacco Are you DNR?: No Advance Directives: No Advance Directives Information Provided: Yes Nutrition Risks: No Nutritional Risk Meds Allergies Allergy/AdvReac Type Severity Reaction Status Date / Time olsalazine [From Dipentum] Allergy Rash Verified 10/07/22 07:39 Sulfa (Sulfonamide Allergy Rash Verified 10/07/22 07:39 Antibiotics) voriconazole Allergy seizure-like Verified 10/07/22 07:39 reaction aspirin AdvReac Gastrointestinal Verified 10/07/22 07:39 Upset ibuprofen AdvReac Gastrointestinal Verified 10/07/22 07:39 Upset Active Medications: Current Medications Lactated Ringer's (Lr) 1,000 mls @ 100 mls/hr IVCONT .Q10H VALERIY Last Admin: 10/07/22 07:10 Dose: 100 mls/hr Home Medications Medication Instructions Recorded Confirmed Last Taken Type diazepam 2 mg tablet 4 mg PO BID 07/09/20 07/09/20 Unknown History folic acid 1 mg tablet 1 mg PO DAILY 07/09/20 07/09/20 Unknown History levothyroxine 25 mcg tablet 25 mcg PO DAILY 07/09/20 07/09/20 07/15/20 History mesalamine 400 mg capsule,delayed 800 mg PO TID 07/09/20 07/09/20 Unknown History release multivitamin 1 tab PO DAILY 07/09/20 07/09/20 Unknown History pantoprazole 40 mg tablet,delayed 40 mg PO BID 07/09/20 07/09/20 07/15/20 History release prazosin 2 mg capsule 2 mg PO BEDTIME 07/09/20 07/09/20 Unknown History sertraline 100 mg tablet 150 mg PO DAILY 07/09/20 07/09/20 Unknown History sucralfate 1 gram tablet 1 g PO BID 07/09/20 07/09/20 Unknown History Euthyrox 10/06/22 Unknown History fluconazole 10/06/22 Unknown History fluticasone propionate 10/06/22 Unknown History sumatriptan 10/06/22 10/06/22 Unknown History Exam Exam Date and Time: October 07, 2022 0819 Height,Weight and Vital Signs: Height 5 ft 1 in Weight 62.142 kg Last Vital Signs Temp 97.9 F 10/07/22 07:10 Pulse 84 10/07/22 07:10 Resp 18 10/07/22 07:10 BP 121/61 10/07/22 07:10 Pulse Ox 95 10/07/22 07:10 O2 Del Method Room Air 10/07/22 07:10 Airway Mallampati Class: II TM Dist: >3cm Neck ROM: Limited Heart: rrr Lungs: cta Assessment and Plan Assessment Anesthesia Assessment: Anesthesia Plan Discussed and Chart Reviewed Final Anesthetic Review Family History of Problems with Anesthesia: No History of Problems with Anesthesia: No NPO: Yes ASA Class: III Final Preanesthetic Review: No Changes in Pt Med Stat, Meds/Allgs Chart Reviewed, Consent Obtained/Reviewed and Anes Risks/Benef Reviewed Patient Risk: Intermediate Procedure Risk: Intermediate Anesthetic Plan Anesthetic Plan: MAC: Disposition: Standard PACU
--- NOTE | 2022-10-07 08:28 | MHC.SHP ---
Pre-Procedural Eval Section A Date of Service: 10/07/22 Section B Chief Complaint: Barreto's esophagus without dysplasia Details of Present Illness: na Relevant Family History (Specify if Yes): No Relevant Social History: None Present Medications: see Short Stay Collaborative assessment Medical History: No relevant PMH History of Previous Operations: No relevant previous surgery Allergies: Allergies Allergy/AdvReac Type Severity Reaction Status Date / Time olsalazine [From Dipentum] Allergy Rash Verified 10/07/22 07:39 Sulfa (Sulfonamide Allergy Rash Verified 10/07/22 07:39 Antibiotics) voriconazole Allergy seizure-like Verified 10/07/22 07:39 reaction aspirin AdvReac Gastrointestinal Verified 10/07/22 07:39 Upset ibuprofen AdvReac Gastrointestinal Verified 10/07/22 07:39 Upset Review of Systems Sugical H&P ROS: Negative: Constitution, Cardiovascular, Respiratory, Neurological, Psychiatric, Hem-Onc, Allergic/Immunologic, Gastrointestinal, Genitourinary, Musculoskeletal, Integumentary, Endocrine and Eyes/Ears/Nose/Throat Exam Surgical H&P Exam: Normal: HEENT, Normal: Heart, Normal: Lungs, Normal: Extremities, Normal: Abdomen, Normal: Skin and Normal: Neurological Plan Diagnosis/Plan: Unchanged I have reviewed the history and physical and performed a pertinent physical examination on my patient. No changes have occurred unless specified. Time Spent With Patient Time: Total time managing care of this patient today ____ minutes.
--- NOTE | 2022-10-07 08:48 | PM.OP ---
Brief Operative Note Date of Service: 10/07/22 Pre-op diagnosis: barretts Post-op diagnosis: same Procedure: egd Surgeon: Panda Josehp Anesthesia: MAC Was an Rehabilitation Therapist used for this Procedure?: No Estimated blood loss (mL): 2 Pathology: other Condition: stable Disposition: PACU
[2022-10-07 08:55] VITALS: BP 104/64; PULSE 81; RESP 16; TEMP 36.3; O2SAT 98
--- NOTE | 2022-10-07 09:02 | OP_ITS ---
DATE OF SERVICE: 10/07/2022 SURGEON: Panda Joseph MD INDICATIONS: Barreto's esophagus. PREOPERATIVE DIAGNOSIS: POSTOPERATIVE DIAGNOSIS: PROCEDURE PERFORMED: Upper endoscopy with biopsy. ESTIMATED BLOOD LOSS: COMPLICATIONS: ANESTHESIA: Monitored anesthesia care. ASSISTANTS: SPECIMENS: DESCRIPTION OF PROCEDURE: A history and physical performed. The risks and benefits of the procedure were explained to the patient. Informed consent was obtained. The patient was placed in the left lateral decubitus position. The Olympus video gastroscope was introduced into the esophagus, stomach, and duodenum. Examination was performed. The scope was removed. She tolerated the procedure well and was taken to the recovery area in stable condition. FINDINGS: Esophagus. The esophagus was normal. There was an irregular EG junction. There was no esophagitis. Biopsies were obtained from the EG junction. Stomach. The stomach showed multiple benign-appearing polyps. These were present in the body and fundus consistent with fundic gland polyps. Duodenum. The bulb and 2nd portion were normal. IMPRESSION: Barreto esophagus. RECOMMENDATIONS: Follow up the biopsy results. MD VINI Alamo/MODL / [id number]
[2022-10-07 09:10] VITALS: BP 119/57; PULSE 78; RESP 16; TEMP 36.4; O2SAT 97
== END 2022-10-07 09:35 | disposition home or self-care (01) ==
PROVIDERS: PCP Internal Medicine; Visit Provider Internal Medicine Gastroenterology
PROC: 0DJ08ZZ Inspection of Upper Intestinal Tract, Via Natural or Artificial Opening Endoscopic (ICD-10-PCS; CPT 43235; principal; 2022-10-07 08:10)
DX: K22.70 Barrett's esophagus without dysplasia (principal); K51.00 Ulcerative (chronic) pancolitis without complications; K31.7 Polyp of stomach and duodenum; K21.9 Gastro-esophageal reflux disease without esophagitis; C92.41 Acute promyelocytic leukemia, in remission; E78.5 Hyperlipidemia, unspecified; G80.9 Cerebral palsy, unspecified; Z79.899 Other long term (current) drug therapy; Z88.8 Allergy status to other drugs, medicaments and biological substances
CPT/HCPCS: 43239; 88305